=== PATIENT | female | born 1940 | race Caucasian/White ===

== ENCOUNTER → 2024-01-11 15:11 | Outpatient (CLI) | payer OTHER, MEDICAID, SELFPAY ==
--- NOTE | 2024-01-11 15:24 | DI.RAD.S_ITS ---
PROCEDURE: XR CHEST 2V INDICATIONS: SOB TECHNIQUE: 2 views of the chest were acquired. COMPARISON: None. FINDINGS: Surgical changes and devices: None. Lungs and pleura: Low lung volumes accentuate pulmonary is DISH in Min obscure cardiac size. There is blunting the left costophrenic angle. Moderate vascular congestion present. Platelike atelectasis noted on the left. Mediastinum: Mediastinal contours are normal. Heart size is normal. Bones and chest wall: No suspicious bony abnormalities. Soft tissues appear unremarkable. IMPRESSION: Moderate vascular congestion and small left pleural effusion with atelectasis and or infiltrate Approved by: Saul Valvered M.D. on 01/14/2024 at 13:03
== END ==
PROVIDERS: Visit Provider Registered Nurse
DX: J90 Pleural effusion, not elsewhere classified (principal); R06.02 Shortness of breath; R09.02 Hypoxemia; R09.89 Other specified symptoms and signs involving the circulatory and respiratory systems
CPT/HCPCS: 71046

== ENCOUNTER → 2024-03-26 06:19 | Outpatient (ROUT) | payer OTHER, MEDICAID, SELFPAY ==
[2024-03-26 07:44] LABS: BUN Creatinine Ratio 27.1 (6-22); Blood Urea Nitrogen 36 mg/dL (7-17); Calcium 9.7 mg/dL (8.4-10.2); Carbon Dioxide 29 mmol/L (22-32); Chloride 99 mmol/L (98-107); Estimated Glomerular Filt Rate 40 mL/min (>60); Glucose 108 mg/dL (80-110); HEMOLYSIS < 15 (0-50); Magnesium 1.7 mg/dL (1.6-2.3); Potassium 3.9 mmol/L (3.4-5.1); Sodium 134 mmol/L (137-145)
== END ==
PROVIDERS: PCP Internal Medicine; Visit Provider Registered Nurse
DX: E11.649 Type 2 diabetes mellitus with hypoglycemia without coma (principal)
CPT/HCPCS: 36415; 80048; 83735

== ENCOUNTER → 2024-05-07 06:19 | Outpatient (ROUT) | payer OTHER, MEDICAID, SELFPAY ==
[2024-05-07 08:04] LABS: Hematocrit 32.7 % (36-46); Hemoglobin 10.8 g/dL (12.0-16.0); Mean Corpuscular HGB Conc 33.1 % (30-36); Mean Corpuscular Hemoglobin 28.9 PG (26-34); Mean Corpuscular Volume 87.4 fL (80-100); Platelet Count 169 X10^3/uL (150-400); Red Blood Cell Count 3.74 X10^6/uL (4.0-5.2); Red Cell Distribution Width 16.7 % (11.6-14.8); White Blood Cell Count 5.3 X10^3/uL (4.5-11.0)
[2024-05-07 08:18] LABS: BUN Creatinine Ratio 30.6 (6-22); Blood Urea Nitrogen 38 mg/dL (7-17); Calcium 9.3 mg/dL (8.4-10.2); Carbon Dioxide 29 mmol/L (22-32); Chloride 100 mmol/L (98-107); Estimated Glomerular Filt Rate 43 mL/min (>60); Glucose 152 mg/dL (80-110); HEMOLYSIS < 15 (0-50); Hemoglobin A1C% w Est Avg Glu 7.5 % (4.0-6.0); Magnesium 1.7 mg/dL (1.6-2.3); Potassium 3.7 mmol/L (3.4-5.1); Sodium 134 mmol/L (137-145)
[2024-05-07 08:48] LABS: Thyroid Stimulating Hormone 1.17 uIU/mL (0.47-4.68)
== END ==
PROVIDERS: PCP Internal Medicine; Visit Provider Registered Nurse
DX: E11.649 Type 2 diabetes mellitus with hypoglycemia without coma (principal); I11.0 Hypertensive heart disease with heart failure; E03.9 Hypothyroidism, unspecified; E83.42 Hypomagnesemia
CPT/HCPCS: 36415; 80048; 83036; 83735; 84443; 85027

== ENCOUNTER 2024-07-28 11:25 | Emergency (ER) | payer OTHER, MEDICAID, SELFPAY ==
[2024-07-28] VITALS (7 sets, daily range): BP systolic 117–135; BP diastolic 57–67; PULSE 69–77; RESP 16–20; TEMP 36.3–37; O2SAT 90–98; BMI 22.8
--- NOTE | 2024-07-28 11:33 | EKG_ITS ---
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
--- NOTE | 2024-07-28 11:48 | DI.RAD.S_ITS ---
PROCEDURE: XR CHEST 1V INDICATIONS: r/o CHF TECHNIQUE: One view of the chest was acquired. COMPARISON: [facility], CR, XR CHEST 2V, 01/11/2024, 16:00. FINDINGS: Surgical changes and devices: None. Lungs and pleura: Ill-defined airspace opacities in left infrahilar region is seen. Mild pulmonary vascular congestion is also seen. No pleural effusions or pneumothorax. Mediastinum: Mediastinal contours appear normal. Heart size is enlarged. Bones and chest wall: No suspicious bony lesions. Overlying soft tissues appear unremarkable. IMPRESSION: Cardiomegaly and mild congestion. Cannot rule out left lower lobe infiltrate versus atelectasis. No significant pleural effusion. No pneumothorax. Dictated by: Mike Raya M.D. on 07/28/2024 at 12:36 Approved by: Mike Raya M.D. on 07/28/2024 at 12:37
[2024-07-28 11:55] LABS: Add Manual Diff / Slide Review NO; Basophils Absolute Auto 100 /uL (0-100); Basophils Percent Auto 1.3 % (0-2); Eosinophils Absolute Auto 200 /uL (0-450); Eosinophils Percent Auto 2.7 % (2-4); Hematocrit 40.9 % (36-46); Hemoglobin 13.1 g/dL (12.0-16.0); Lymphocytes Absolute Auto 700 /uL (1100-4500); Lymphocytes Percent Auto 9.7 % (25-40); Mean Corpuscular Hemoglobin 26.9 PG (26-34); Mean Corpuscular Volume 84.2 fL (80-100); Monocytes Absolute Auto 700 /uL (0-900); Monocytes Percent Auto 9.6 % (3-14); Neutrophils Absolute Auto 5900 /uL (1500-7000); Neutrophils Percent Auto 76.7 % (50-75); Platelet Count 194 X10^3/uL (150-400); Red Blood Cell Count 4.86 X10^6/uL (4.0-5.2); Red Cell Distribution Width 16.3 % (11.6-14.8); White Blood Cell Count 7.7 X10^3/uL (4.5-11.0)
[2024-07-28 12:07] LABS: Alanine Aminotransferase 28 IU/L (<35); Albumin 4.3 g/dL (3.5-5.0); Albumin Globulin Ratio 1.4 (1.0-2.8); Alkaline Phosphatase 59 U/L (38-126); Aspartate Aminotransferase 59 IU/L (14-36); BUN Creatinine Ratio 20.8 (6-22); Bilirubin Total 1.5 mg/dL (0.2-1.3); Blood Urea Nitrogen 33 mg/dL (7-17); Calcium 9.1 mg/dL (8.4-10.2); Carbon Dioxide 19 mmol/L (22-32); Chloride 103 mmol/L (98-107); Estimated Glomerular Filt Rate 32 mL/min (>60); Glucose 169 mg/dL (80-110); Lipase 47 U/L (23-300); Sodium 136 mmol/L (137-145); Total Protein 7.3 g/dL (6.3-8.2)
[2024-07-28 12:08] LABS: HEMOLYSIS 140 (0-50)
[2024-07-28 12:17] LABS: NT-proBNP (BNP-Adult 18+) 3250 pg/mL (<450)
--- NOTE | 2024-07-28 15:27 | ED.EXTPRO ---
HPI - Extremity Problem General Chief complaint: Extremity Problem,Nontraumatic Stated complaint: LE swelling Time Seen by Provider: 07/28/24 15:23 Source: patient Mode of arrival: EMS Limitations: no limitations History of Present Illness HPI Narrative: 83-year-old female history of prior strokes, hypertension, dyslipidemia, congestive heart failure, atrial fibrillation, pulmonary emboli on apixaban daily, insulin-dependent diabetes, hypothyroidism who presents with complaint of swelling in her legs. Patient did not notice her issue she states the aid that was assisting her did. She states she had swelling in her leg after having thrombectomy and then it improved. She states that was in August of 2023 she has been anticoagulated since. Patient states she has not had regular swelling of her lower extremity since. Denies any fevers or chills. No chest pain or pressure, has had some shortness of breath for the past month, no nausea no vomiting, occasional diarrhea, no urinary issues. No pain or discomfort in her lower extremities. She ambulates with assistance per patient. Patient's home medications include apixaban, medications for hypertension, dyslipidemia, diabetes including oral medication and insulin, chlorthalidone. Patient states no known drug allergies. No tobacco, alcohol or recreational drugs. Her Primary care physician is through [facility] where she lives. Related Data Previous Rx's Medication Instructions Recorded furosemide 40 mg tablet (Lasix) 40 mg PO DAILY #3 tabs 07/28/24 Allergies Allergy/AdvReac Type Severity Reaction Status Date / Time No Known Drug Allergies Allergy Verified 07/28/24 11:26 Review of Systems Review of Systems ROS Unobtainable: All systems reviewed & are unremarkable except as noted in HPI and below Patient History Social History Smoking Status: Former smoker Smoking Status: Former smoker Exam Narrative Exam Narrative: GENERAL: Alert and oriented x three, female in mild distress HEENT: Head normocephalic, atraumatic, EOMI, pupils reactive, face symmetric, moist mucous membranes NECK: Supple, full range of motion CARDIOVASCULAR: Regular rate and rhythm without murmurs, rubs or gallops. RESPIRATORY: Breath sounds equal bilaterally, no wheezes rales or rhonchi. No tachypnea or accessory muscle use ABDOMEN: Soft, nontender. Normoactive bowel sounds all 4 quadrants. No guarding or rebound, rigidity, no mass : No CVA tenderness EXTREMITIES: Normal range of motion, no clubbing, 2+ pitting edema bilateral lower extremities. Nontender, no warmth or erythema appreciated, patient has not incision on the inner right lower extremity and thigh which is clean dry and intact without any signs of infection. Neurovascularly intact NEUROLOGICAL: Cranial nerves II through XII grossly intact. Moving all extremities SKIN: Warm, dry, no petechiae, no rashes or lesions. Initial Vital Signs Initial Vital Signs: Vital Signs Temperature 97.3 F L 07/28/24 11:26 Pulse Rate 77 07/28/24 11:26 Respiratory Rate 17 07/28/24 11:26 Blood Pressure 122/67 07/28/24 11:26 Pulse Oximetry 95 07/28/24 11:26 Oxygen Delivery Method Room Air 07/28/24 11:26 Course Orders Ordered: ED Orders 07/28/24 11:33 EKG-12 Lead Stat 07/28/24 11:45 Complete Blood Count AUTO DIFF Stat Comprehensive Metabolic Panel Stat Lipase Stat NT-proBNP (BNP-Adult 18+) Stat 07/28/24 11:48 Chest [XR chest 1V] Stat 07/28/24 16:28 Troponin & CK Cardiac Panel Stat Discontinued Medications Furosemide (Furosemide 40 Mg/4 Ml Vial) 40 mg IV NOW ONE Stop: 07/28/24 16:21 Last Admin: 07/28/24 17:24 Dose: 40 mg Documented By: TYLOR Vital Signs Vital signs: Vital Signs - 8 hr 07/28/24 11:26 07/28/24 12:42 07/28/24 14:07 Temperature 97.3 F L Pulse Rate 77 70 Pulse Rate [Dorsalis Pedis] 77 Respiratory Rate 17 16 Blood Pressure 122/67 117/57 L Pulse Oximetry 95 90 L Oxygen Delivery Method Room Air 07/28/24 14:09 07/28/24 14:11 07/28/24 14:11 Temperature Pulse Rate 69 69 Pulse Rate [Dorsalis Pedis] Respiratory Rate Blood Pressure 135/63 Pulse Oximetry 92 92 Oxygen Delivery Method 07/28/24 14:30 07/28/24 14:30 07/28/24 17:44 Temperature 98.6 F Pulse Rate 69 70 Pulse Rate [Dorsalis Pedis] Respiratory Rate 20 Blood Pressure 126/64 128/66 Pulse Oximetry 92 98 Oxygen Delivery Method Room Air MDM - Extremity (Nontraumatic) Lab Data 07/28/24 11:45 07/28/24 11:45 Labs: Lab Results 07/28/24 07/28/24 Range/Units 11:45 16:28 WBC 7.7 (4.5-11.0) X10^3/uL RBC 4.86 (4.0-5.2) X10^6/uL Hgb 13.1 (12.0-16.0) g/dL Hct 40.9 (36-46) % MCV 84.2 (80-100) fL MCH 26.9 (26-34) PG MCHC 32.0 (30-36) % RDW 16.3 H (11.6-14.8) % Plt Count 194 (150-400) X10^3/uL Neut % (Auto) 76.7 H (50-75) % Lymph % (Auto) 9.7 L (25-40) % [place] % (Auto) 9.6 (3-14) % Eos % (Auto) 2.7 (2-4) % Baso % (Auto) 1.3 (0-2) % Neut # (Auto) 5900 (2191-1562) /uL Lymph # (Auto) 700 L (0899-9546) /uL [place] # (Auto) 700 (0-900) /uL Eos # (Auto) 200 (0-450) /uL Baso # (Auto) 100 (0-100) /uL Sodium 136 L (137-145) mmol/L Potassium 5.0 (3.4-5.1) mmol/L Chloride 103 (98-107) mmol/L Carbon Dioxide 19 L (22-32) mmol/L BUN 33 H (7-17) mg/dL Creatinine 1.59 H (0.52-1.04) mg/dL Estimated GFR 32 L (>60) mL/min BUN/Creatinine Ratio 20.8 (6-22) Glucose 169 H (80-110) mg/dL Calcium 9.1 (8.4-10.2) mg/dL Total Bilirubin 1.5 H (0.2-1.3) mg/dL AST 59 H (14-36) IU/L ALT 28 (<35) IU/L Alkaline Phosphatase 59 (38-126) U/L Total Creatine Kinase 33 (30-135) U/L Troponin I < 0.012 (0.01-0.034) ng/mL NT-Pro-B Natriuret Pep 3250 H (<450) pg/mL Total Protein 7.3 (6.3-8.2) g/dL Albumin 4.3 (3.5-5.0) g/dL Globulin 3.0 (1.7-4.1) g/dL Albumin/Globulin Ratio 1.4 (1.0-2.8) Lipase 47 (23-300) U/L ECG Data Attestation EKG: I personally reviewed and interpreted this ECG as follows: Prior ECG tracings: not available for review Interpretation: Sinus rhythm rate of 69 NV 180 QRS is 76 QTC of 477, no acute ST elevation or depression noted. MDM Narrative Medical decision making narrative: 83-year-old female history of blood clot but has been anticoagulated appropriately since who appears to be in CHF with pitting edema bilaterally, changes on chest x-ray, patient appears to have some chronic kidney disease and BNP is elevated at 3250. Troponin EKG shows sinus rhythm no acute ST changes. No prior for comparison. Labs CBC shows normal white count hemoglobin and platelets. Chemistries show creatinine of 1.59 this is consistent from priors in March and May which were 1.3 and 1.2 for her, CO2 is 19, sodium is 136 potassium and chloride are normal glucose is 169. Bilirubin is 1.5, AST 59, BNP is 3250. Troponin CXR cardiomegaly with mild congestion can not rule out left lower lobe infiltrate versus atelectasis no significant pleural effusion, no pneumothorax. Discharge Plan Departure Patient Disposition: Home Clinical Impression: Congestive heart failure (CHF) Instructions: DI for Heart Failure Activity Restrictions/Additional Instructions: Please follow up with your physician for recheck, your workup today shows changes consistent with congestive heart failure. Please take a diuretic provided for the next 3 days and then return to your usual dose. 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 Your next dose is due tomorrow. Prescription sent to Please return for increasing swelling, new chest pain or shortness of breath, lightheadedness or passing out, fevers, you redness, warmth or other skin changes or other new or concerning changes Prescriptions: New furosemide [Lasix] 40 mg tablet 40 mg PO DAILY Qty: 3 0RF Referrals: Jose Stuart MD [Primary Care Provider] - Stand Alone Forms: Patient Portal/API/Survey
--- NOTE | 2024-07-28 15:38 | PC.NURSE ---
3+ pitting edema bilaterally in feet& angles. Skin is red and shiny. Pt denies any pain, SOB & CP. Transferred from wheelchair to ED bed with standby assist. Pt a&Ox4.
[2024-07-28 17:03] LABS: Troponin I < 0.012 ng/mL (0.01-0.034)
[2024-07-28] MEDS: FUROSEMIDE 40 MG/4 ML VIAL IV (17:24)
[2024-07-28 17:50] LABS: Creatine Kinase 33 U/L (30-135)
== END 2024-07-28 17:46 | disposition home or self-care (01) ==
PROVIDERS: Emergency Provider Emergency Medicine; PCP Internal Medicine
DX: I50.9 Heart failure, unspecified (principal); Z79.01 Long term (current) use of anticoagulants
CPT/HCPCS: 36415; 71045; 80053; 82550; 83690; 83880; 84484; 85025; 93005; 96374; 99284; J1940

== ENCOUNTER → 2024-09-17 06:24 | Outpatient (ROUT) | payer OTHER, MEDICAID, SELFPAY ==
[2024-09-17 08:19] LABS: Hematocrit 34.9 % (36-46); Hemoglobin 11.6 g/dL (12.0-16.0)
[2024-09-17 08:30] LABS: Hemoglobin A1C% w Est Avg Glu 9.5 % (4.0-6.0)
[2024-09-17 08:38] LABS: BUN Creatinine Ratio 35.8 (6-22); Blood Urea Nitrogen 48 mg/dL (7-17); Calcium 9.4 mg/dL (8.4-10.2); Carbon Dioxide 28 mmol/L (22-32); Chloride 95 mmol/L (98-107); Estimated Glomerular Filt Rate 39 mL/min (>60); Glucose 276 mg/dL (80-110); HEMOLYSIS < 15 (0-50); Magnesium 1.6 mg/dL (1.6-2.3); Potassium 3.9 mmol/L (3.4-5.1); Sodium 134 mmol/L (137-145)
[2024-09-17 09:06] LABS: Thyroid Stimulating Hormone 1.08 uIU/mL (0.47-4.68)
[2024-09-17 09:25] LABS: Vitamin B12 590 pg/mL (239-931)
== END ==
PROVIDERS: PCP Internal Medicine; Visit Provider Registered Nurse
DX: E11.649 Type 2 diabetes mellitus with hypoglycemia without coma (principal); I50.9 Heart failure, unspecified; D64.9 Anemia, unspecified; E03.9 Hypothyroidism, unspecified
CPT/HCPCS: 36415; 80048; 82607; 83036; 83735; 84443; 85014; 85018

== ENCOUNTER 2024-12-04 08:01 | Inpatient (IN) | payer OTHER, MEDICAID, SELFPAY ==
[2024-12-04] VITALS (28 sets, daily range): BP systolic 113–182; BP diastolic 48–80; PULSE 76–122; RESP 9–19; TEMP 36.1–36.7; O2SAT 85–100; BMI 24.3; BMI 24.7
--- NOTE | 2024-12-04 08:12 | EKG_ITS ---
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
--- NOTE | 2024-12-04 08:12 | DI.RAD.S_ITS ---
PROCEDURE: XR CHEST 1V INDICATIONS: Chest Pain TECHNIQUE: One view of the chest was acquired. COMPARISON: [facility], CR, XR CHEST 1V, 07/28/2024, 11:53. FINDINGS: Surgical changes and devices: None. Lungs and pleura: Subtle interstitial pulmonary edema. No pleural effusions or pneumothorax. Mediastinum: Mediastinal contours appear normal. Heart size is mildly enlarged. Bones and chest wall: No suspicious bony lesions. Overlying soft tissues appear unremarkable. IMPRESSION: Mild pulmonary edema. Dictated by: Velasquez Weeks M.D. on 12/04/2024 at 8:31 Approved by: Velasquez Weeks M.D. on 12/04/2024 at 8:31
[2024-12-04 08:46] LABS: Add Manual Diff / Slide Review NO; Hematocrit 36.8 % (36-46); Hemoglobin 12.3 g/dL (12.0-16.0); Lymphocytes Absolute Auto 500 /uL (1100-4500); Mean Corpuscular HGB Conc 33.6 % (30-36); Mean Corpuscular Hemoglobin 30.0 PG (26-34); Mean Corpuscular Volume 89.4 fL (80-100); Platelet Count 185 X10^3/uL (150-400)
[2024-12-04 08:53] LABS: INR 1.3 (0.9-1.3); Prothrombin Time 14.6 SECONDS (9.4-12.5)
--- NOTE | 2024-12-04 08:54 | DI.CT.S_ITS ---
PROCEDURE: CT TRAUMA CHEST ABDOMEN PELVIS INDICATIONS: fall TECHNIQUE: After the administration of intravenous contrast, 5 mm thick sections acquired from the lung apices to the symphysis. 2.5 mm thick coronal and sagittal reformats were acquired. Additional 7 mm thick coronal maximum intensity projection (MIP) reformats acquired through the lungs. Optional 10-minute delayed imaging may be performed from the kidneys to the bladder. For radiation dose reduction, the following was used: automated exposure control, adjustment of mA and/or kV according to patient size. COMPARISON: None. FINDINGS: Image quality: Diagnostic. CHEST: Lower Neck: No enlarged lymph nodes. Thyroid: No thyroid nodules which require sonographic evaluation. Axillae: No enlarged lymph nodes. Chest Wall: No subcutaneous gas. Lungs and Pleura: No pulmonary contusions or lacerations. Interstitial pulmonary edema. No alveolar edema. No focal pulmonary infiltrate. No pneumothorax or hemothorax. Mediastinum: No mediastinal hematomas. Heart size is mildly enlarged. No pericardial effusion. Thoracic aorta and pulmonary arteries demonstrate normal size and enhancement. No mediastinal or hilar adenopathy. Esophagus is normal in caliber. No hiatal hernia. ABDOMEN: Liver: No lacerations. Gallbladder: Small gallstones. No gallbladder wall thickening. Biliary ducts: No biliary dilation. Pancreas: Homogenous enhancement. Spleen: Homogenous enhancement without laceration or hematoma. Lobulated surface contours are incidentally noted.. Adrenal Glands: Indeterminate left adrenal nodule measuring 1.9 x 1.4 cm. Kidneys and Ureters: Symmetric enhancement. No hydronephrosis. No solid mass. No complex renal cystic lesion which requires follow up. Chronic anterior cortical volume loss of the right kidney consistent with remote insult. Stomach and Bowel: Normal colonic caliber, without significant wall thickening. Peritoneum: No abnormal intraperitoneal fluid. No free air. Ventral Wall: No hernia. Abdominal Nodes: No retroperitoneal or mesenteric adenopathy by size criteria. Vessels: Aorta and inferior vena cava are normal in size. PELVIS: Pelvic Organs: Unremarkable. Bladder: Normal thickness. Pelvic Nodes: No enlarged lymph nodes. Miscellaneous: No inguinal hernias are seen. Bones: Pelvic ring and hip joints appear intact. No displaced rib fractures. A mild T11 compression fracture appears chronic. There is diffuse osteopenia. IMPRESSION: No evidence of traumatic injury to the chest, abdomen or pelvis. Congestive heart failure Cholelithiasis. Indeterminate 1.9 cm left adrenal nodule. Chronic compression fracture. Dictated by: Velasquez Weeks M.D. on 12/04/2024 at 10:13 Approved by: Velasquez Weeks M.D. on 12/04/2024 at 10:26
[2024-12-04 08:56] LABS: PTT Partial Thromboplastin Tim 28 SECONDS (25.1-36.5)
--- NOTE | 2024-12-04 08:57 | ED_ITS ---
HPI - Dizziness General Chief Complaint: Dizziness Stated Complaint: N/V Had a fall today Time Seen by Provider: 12/04/24 08:31 Source: patient Mode of arrival: Wheelchair History of Present Illness HPI Narrative: Patient brought here from [facility], across the [address]. Patient got up this morning sat at the edge of bed she usually does. When she got up to use her walker she got dizzy and fell down, landed on her pelvis/hip. And then on her back. Did not hit her head. No headache or neck pain. Patient has history atrial fibrillation on Eliquis. Patient states she did have nausea and vomiting after falling. Again no chest pain or palpitations shortness of breath. Denies any recent illness no fever chills cough cold congestion no black or bloody stools. Patient in no distress at this time. Has not taken her morning medications. She states she is not on metoprolol because her blood pressure has been running low. Patient does have a POLST form that is stated as DNR DNI with selective treatments. Related Data Home Medications ?Medication ?Instructions ?Recorded ?Confirmed acetaminophen 325 mg capsule 650 mg PO .q6hprn pain 12/04/24 apixaban 5 mg tablet (Eliquis) 2.5 mg PO BID 12/04/24 12/04/24 ascorbic acid (vitamin C) 250 mg 250 mg PO .COMPLEX 12/04/24 tablet atorvastatin 40 mg tablet 40 mg PO DAILY 12/04/2408/26 chlorthalidone 25 mg tablet 12.5 mg PO .COMPLEX 12/04/24 citalopram 20 mg tablet 20 mg PO DAILY 12/04/2408/26 diltiazem HCl 120 mg 120 mg PO DAILY 12/04/2408/26 capsule,extended release 24 hr empagliflozin 25 mg tablet 25 mg PO DAILY 12/04/2408/26 (Jardiance) ferrous sulfate 325 mg (65 mg 325 mg PO DAILY 12/04/24 12/04/24 iron) tablet (FeroSul) gabapentin 100 mg capsule 100 mg PO DAILY 12/04/2408/26 insulin glargine-yfgn 100 unit/mL 18 unit SUBCUT BID 0 12/04/24 12/04/24 (3 mL) subcutaneous pen levothyroxine 75 mcg tablet 75 mcg PO DAILY 12/04/24 0 12/04/24 magnesium oxide 400 mg (241.3 mg 400 mg PO BID 5 12/04/24 magnesium) tablet fwjgceibahfi-fpwflwdx-bnzr 1 tab PO DAILY 12/04/2408/26 fumarate 7.5 mg-folic acid 400 mcg tablet pantoprazole 40 mg tablet,delayed 40 mg PO DAILY 12/0412/04/24 release Previous Rx's ?Medication ?Instructions ?Recorded furosemide 20 mg tablet 20 mg PO DAILY #30 tabs 11/26 Allergies Allergy/AdvReac Type Severity Reaction Status Date / Time No Known Drug Allergies Allergy Verified 12/04/24 08:41 Review of Systems Review of Systems Narrative: GENERAL: Negative chills, fatigue, malaise, fever, sweats. HEENT: Negative sinus pain, ear pain, sore throat RESPIRATORY: Negative dyspnea, cough CARDIOVASCULAR: Negative chest pain, palpitations GASTROINTESTINAL: Positive vomiting, nausea, negative abdominal pain : Negative dysuria, frequency, hematuria MUSCULOSKELETAL: Negative muscle or bony pain SKIN: Negative rash, skin lesions NEUROLOGIC: Negative weakness, numbness, positive dizzy ROS Unobtainable: All systems reviewed & are unremarkable except as noted in HPI and below Patient History Social History household members: none Smoking Status: Former smoker alcohol intake: current Smoking Status: Never smoker Exam Narrative Exam Narrative: GENERAL: in no distress, not toxic not dyspneic HEAD: Normocephalic. EYES: Pupils equal round ENT: Mucous membranes moist. NECK: Trachea midline. CARDIOVASCULAR: Regular rate and rhythm RESPIRATORY: Clear to auscultation. Breath sounds equal bilaterally. No wheezes, rales, or rhonchi. GASTROINTESTINAL: Abdomen soft, non-tender no peritoneal signs EXTREMITIES: No gross deformities. BACK: No flank tenderness. NEURO: AOx4. Clear speech, fast exam is negative. Strong equal photo technician. Negative pronator drift. Elevate each leg without drift. SKIN: Warm and dry PSYCH: Not anxious, is cooperative Initial Vital Signs Initial Vital Signs: Vital Signs Pulse Rate 122 H 12/04/24 08:16 Pulse Oximetry 93 12/04/24 08:16 Course Orders Ordered: Discontinued Medications Acetaminophen (Acetaminophen 325 Mg Tablet) 650 mg PO Q6H PRN PRN Reason: Fever/Mild Pain (1-3) Last Admin: 12/06/24 21:00 Dose: 650 mg Documented By: Admin: 12/05/24 16:26 Dose: 650 mg Documented By: KINGSLEY Apixaban (Apixaban 5 Mg Tablet) 2.5 mg PO BID [facility] Last Admin: 12/07/24 08:00 Dose: 2.5 mg Documented By: Admin: 12/06/24 20:59 Dose: 2.5 mg Documented By: Admin: 12/06/24 08:30 Dose: 2.5 mg Documented By: Admin: 12/05/24 20:18 Dose: 2.5 mg Documented By: Admin: 12/05/24 08:19 Dose: 2.5 mg Documented By: Admin: 12/04/24 21:31 Dose: 2.5 mg Documented By: CHLOE Aspirin (Aspirin 81 Mg Chew Tab) 324 mg PO NOW ONE Stop: 12/04/24 08:13 Last Admin: 12/04/24 09:41 Dose: Not Given Documented By: ROXANA Atorvastatin Calcium (Atorvastatin 20 Mg Tablet) 40 mg PO BEDTIME [facility] Last Admin: 12/06/24 21:02 Dose: 40 mg Documented By: Admin: 12/05/24 20:16 Dose: 40 mg Documented By: MARIELA Citalopram Hydrobromide (Citalopram 10 Mg Tablet) 20 mg PO DAILY [facility] Last Admin: 12/07/24 08:00 Dose: 20 mg Documented By: Admin: 12/06/24 08:30 Dose: 20 mg Documented By: Admin: 12/05/24 08:19 Dose: 20 mg Documented By: KINGSLEY Diltiazem HCl (Diltiazem Cd 120 Mg Cap) 120 mg PO NOW ONE Stop: 12/04/24 08:58 Last Admin: 12/04/24 09:41 Dose: 120 mg Documented By: ROXANA Furosemide (Furosemide 40 Mg/4 Ml Vial) 20 mg IV NOW ONE Stop: 12/04/24 13:15 Last Admin: 12/04/24 13:32 Dose: 20 mg Documented By: ROXANA Furosemide (Furosemide 20 Mg/2 Ml Vial) 20 mg IV BID [facility] Furosemide (Furosemide 20 Mg/2 Ml Vial) 20 mg IV DAILY [facility] Stop: 12/06/24 09:19 Last Admin: 12/06/24 09:20 Dose: Not Given Documented By: Admin: 12/05/24 08:23 Dose: 20 mg Documented By: KINGSLEY Furosemide (Furosemide 20 Mg Tablet) 20 mg PO DAILY [facility] Last Admin: 12/07/24 08:00 Dose: 20 mg Documented By: Admin: 12/06/24 09:34 Dose: 20 mg Documented By: MAMIE Gabapentin (Gabapentin 100 Mg Capsule) 100 mg PO DAILY [facility] Last Admin: 12/07/24 08:00 Dose: 100 mg Documented By: Admin: 12/06/24 08:30 Dose: 100 mg Documented By: Admin: 12/05/24 08:20 Dose: 100 mg Documented By: KINGSLEY Heparin Sodium (Porcine) (Heparin 5,000 Unit/Ml Vial) 5,000 unit SUBCUT BID [facility] Sodium Chloride (Normal Saline 0.9%) 500 mls @ 1,000 mls/hr IV BOLUS ONE Stop: 12/04/24 09:26 Last Infusion: 12/04/24 11:04 Dose: Infused Documented By: Admin: 12/04/24 09:41 Dose: 1,000 mls/hr Documented By: ROXANA Dextrose (D10w) 100 mls @ 999 mls/hr IV PRN PRN PRN Reason: Hypoglycemia Magnesium Sulfate (Magnesium Sulfate) 2 gm in 50 mls @ 25 mls/hr IV NOW ONE Stop: 12/07/24 09:54 Last Infusion: 12/07/24 13:31 Dose: Infused Documented By: ALON Co-signed By: PRERNA Admin: 12/07/24 10:41 Dose: 25 mls/hr Documented By: ALON Co-signed By: PRERNA Insulin Glargine (Insulin Glargine 100 Unit/Ml 3ml Pen) 18 unit SUBCUT BID [facility] Last Admin: 12/07/24 08:00 Dose: 18 unit Documented By: ALON Co-signed By: NORM Admin: 12/06/24 21:04 Dose: 18 unit Documented By: LEVY Co-signed By: NORM(2) Admin: 12/06/24 14:47 Dose: 18 unit Documented By: MAMIE Co-signed By: HAN Insulin Glargine (Insulin Glargine 100 Unit/Ml 3ml Pen) 21 unit SUBCUT BID [facility] Insulin Human Lispro (Insulin Lispro 100 Unit/Ml 3ml Vial) 0 unit SUBCUT ACHS SHERRI; Protocol Last Admin: 12/07/24 12:10 Dose: 5 unit Documented By: ALON Co-signed By: PRERNA Admin: 12/07/24 07:58 Dose: 2 unit Documented By: ALON Co-signed By: NORM Admin: 12/06/24 21:05 Dose: 3 unit Documented By: VH Co-signed By: NORM(2) Admin: 12/06/24 16:57 Dose: 5 unit Documented By: CLP Co-signed By: EV Admin: 12/06/24 12:03 Dose: 5 unit Documented By: CLP Co-signed By: BT Admin: 12/06/24 08:21 Dose: 2 unit Documented By: CLP Co-signed By: BT Admin: 12/05/24 20:17 Dose: 2 unit Documented By: AM Co-signed By: SR Admin: 12/05/24 17:30 Dose: 2 unit Documented By: KINGSLEY Co-signed By: CROW Admin: 12/05/24 11:43 Dose: 1 unit Documented By: KINGSLEY Co-signed By: CLL Admin: 12/05/24 08:18 Dose: 1 unit Documented By: KINGSLEY Co-signed By: CROW Admin: 12/04/24 21:31 Dose: Not Given Documented By: Admin: 12/04/24 17:31 Dose: Not Given Documented By: SB Levothyroxine Sodium (Levothyroxine 75 Mcg Tablet) 75 mcg PO DAILY@0600 [facility] Last Admin: 12/07/24 06:33 Dose: 75 mcg Documented By: Admin: 12/06/24 06:23 Dose: 75 mcg Documented By: Admin: 12/05/24 05:34 Dose: 75 mcg Documented By: CHLOE Magnesium Chloride (Magnesium Chloride 64 Mg Tablet) 128 mg PO NOW ONE Stop: 12/06/24 06:55 Last Admin: 12/06/24 08:30 Dose: 128 mg Documented By: MAMIE Naloxone HCl (Naloxone 0.4 Mg/Ml Vial) 0.2 mg IV Q2MIN PRN PRN Reason: Opiate Reversal Non-Formulary Medication (Empagliflozin [Jardiance]) 25 mg PO DAILY [facility] Pantoprazole Sodium (Pantoprazole Dr 40 Mg Tablet) 40 mg PO DAILY [facility] Last Admin: 12/05/24 08:20 Dose: 40 mg Documented By: KINGSLEY Pantoprazole Sodium (Pantoprazole Dr 40 Mg Tablet) 40 mg PO 0600 [facility] Last Admin: 12/07/24 06:33 Dose: 40 mg Documented By: Admin: 12/06/24 06:24 Dose: 40 mg Documented By: LEVY Sodium Chloride (Sodium Chloride 0.9% Flush) 10 ml IV PRN PRN PRN Reason: Flush Sodium Chloride (Sodium Chloride 0.9% Flush) 10 ml IV BID [facility] Last Admin: 12/07/24 10:41 Dose: 10 ml Documented By: Admin: 12/06/24 21:12 Dose: 10 ml Documented By: Admin: 12/06/24 09:21 Dose: Not Given Documented By: MAMIE Vital Signs Vital signs: Vital Signs - 8 hr 12/04/24 08:16 12/04/24 08:18 12/04/24 08:18 Temperature Pulse Rate 122 H 110 H Respiratory Rate Blood Pressure 182/80 H Pulse Oximetry 93 92 Oxygen Delivery Method Oxygen Flow Rate 12/04/24 08:30 12/04/24 08:30 12/04/24 08:40 Temperature 98.1 F Pulse Rate 87 93 H Respiratory Rate 19 14 Blood Pressure 172/70 H 182/80 H Pulse Oximetry 94 94 Oxygen Delivery Method Room Air Oxygen Flow Rate 12/04/24 09:00 12/04/24 09:01 12/04/24 09:36 Temperature Pulse Rate 87 93 H Respiratory Rate 13 Blood Pressure 150/67 H Pulse Oximetry 85 L 92 Oxygen Delivery Method Oxygen Flow Rate 12/04/24 09:37 12/04/24 09:37 12/04/24 10:00 Temperature Pulse Rate 94 H 92 H Respiratory Rate 11 L 13 Blood Pressure 163/69 H Pulse Oximetry 93 89 L Oxygen Delivery Method Oxygen Flow Rate 12/04/24 10:01 12/04/24 10:01 12/04/24 10:30 Temperature Pulse Rate 93 H 86 Respiratory Rate 12 12 Blood Pressure 158/71 H Pulse Oximetry 88 L 92 Oxygen Delivery Method Nasal Cannula Oxygen Flow Rate 2 12/04/24 10:30 12/04/24 11:00 12/04/24 11:00 Temperature Pulse Rate 84 Respiratory Rate 9 L Blood Pressure 147/64 H 136/57 L Pulse Oximetry 92 Oxygen Delivery Method Oxygen Flow Rate 12/04/24 11:30 12/04/24 11:31 12/04/24 11:31 Temperature Pulse Rate 82 82 Respiratory Rate 12 12 Blood Pressure 144/62 H Pulse Oximetry 96 96 Oxygen Delivery Method Oxygen Flow Rate 12/04/24 12:00 12/04/24 12:00 12/04/24 12:30 Temperature Pulse Rate 92 H 92 H Respiratory Rate 13 15 Blood Pressure 156/69 H Pulse Oximetry 93 90 L Oxygen Delivery Method Oxygen Flow Rate 12/04/24 12:30 12/04/24 13:00 12/04/24 13:01 Temperature Pulse Rate 89 90 Respiratory Rate 14 13 Blood Pressure 156/67 H Pulse Oximetry 94 94 Oxygen Delivery Method Oxygen Flow Rate 12/04/24 13:01 12/04/24 13:30 12/04/24 13:30 Temperature Pulse Rate 91 H Respiratory Rate 13 Blood Pressure 144/64 H 152/73 H Pulse Oximetry 93 Oxygen Delivery Method Oxygen Flow Rate 12/04/24 14:00 12/04/24 14:01 12/04/24 14:01 Temperature Pulse Rate 99 H 96 H Respiratory Rate 19 14 Blood Pressure 130/56 L Pulse Oximetry 96 96 Oxygen Delivery Method Oxygen Flow Rate MDM - Dizziness Lab Data 12/06/24 06:00 12/06/24 06:00 Labs: Lab Results 12/04/24 12/04/24 Range/Units 08:35 12:56 WBC 4.9 (4.5-11.0) X10^3/uL RBC 4.11 (4.0-5.2) X10^6/uL Hgb 12.3 (12.0-16.0) g/dL Hct 36.8 (36-46) % MCV 89.4 (80-100) fL MCH 30.0 (26-34) PG MCHC 33.6 (30-36) % RDW 14.7 (11.6-14.8) % Plt Count 185 (150-400) X10^3/uL Neut % (Auto) 74.3 (50-75) % Lymph % (Auto) 10.9 L (25-40) % Wilcox % (Auto) 9.9 (3-14) % Eos % (Auto) 3.7 (2-4) % Baso % (Auto) 1.2 (0-2) % Neut # (Auto) 3600 (9315-1857) /uL Lymph # (Auto) 500 L (9303-8249) /uL Wilcox # (Auto) 500 (0-900) /uL Eos # (Auto) 200 (0-450) /uL Baso # (Auto) 100 (0-100) /uL PT 14.6 H (9.4-12.5) SECONDS INR 1.3 (0.9-1.3) APTT 28 (25.1-36.5) SECONDS Sodium 138 (137-145) mmol/L Potassium 3.7 (3.4-5.1) mmol/L Chloride 97 L (98-107) mmol/L Carbon Dioxide 31 (22-32) mmol/L BUN 34 H (7-17) mg/dL Creatinine 1.46 H (0.52-1.04) mg/dL Estimated GFR 35 L (>60) mL/min BUN/Creatinine Ratio 23.3 H (6-22) Glucose 164 H (70-99) mg/dL Calcium 9.9 (8.4-10.2) mg/dL Magnesium 1.4 L (1.6-2.3) mg/dL Total Bilirubin 0.7 (0.2-1.3) mg/dL AST 37 H (14-36) IU/L ALT 32 (<35) IU/L Alkaline Phosphatase 59 (38-126) U/L Total Creatine Kinase 41 (30-135) U/L Troponin I < 0.012 (0.01-0.034) ng/mL NT-Pro-B Natriuret Pep 1060 H (<450) pg/mL Total Protein 8.1 (6.3-8.2) g/dL Albumin 4.7 (3.5-5.0) g/dL Globulin 3.4 (1.7-4.1) g/dL Albumin/Globulin Ratio 1.4 (1.0-2.8) Lipase 80 (23-300) U/L Urine Color Yellow Urine Appearance Clear Urine pH 7.5 (4.5-8.0) Ur Specific [place] <=1.005 (1.000-1.035) Urine Protein Negative (Negative) Urine Glucose (UA) Negative (Negative) g/dL Urine Ketones Negative (NEGATIVE) Urine Occult Blood Negative (Negative) Urine Nitrate Negative (Negative) Urine Bilirubin Negative (NEGATIVE) Urine Urobilinogen 1.0 (0.2) E.U./dL Ur Leukocyte Esterase Trace H (NEGATIVE) Urine RBC 0-1/hpf (0-5/HPF) Urine WBC 0-1/hpf (0-5/HPF) Ur Squamous Epith Cells 1-5 /hpf (0-5/HPF) Urine Bacteria None seen (None) Ur Culture Indicated? Cult not indicated Vol Urine Centrifuged 10ml (spun) Imaging Data CT scan - head: Radiologist's Impression: [address] [address] [address] Scan Report Signed Patient: Francine Godinez MR#: [id number] : 1940 Acct:[id number] Age/Sex: 84 / F Date of Service: 12/04/24 Loc: ED Accession Number: [id number] Procedure: CT head/brain wo con Ordering Provider: David Rae MD PROCEDURE: CT HEAD/BRAIN WO CON INDICATIONS: Trauma TECHNIQUE: Noncontrast 4.5 mm thick angled axial sections acquired from the foramen magnum to the vertex, with coronal and sagittal reformats. For radiation dose reduction, the following was used: automated exposure control, adjustment of mA and/or kV according to patient size. COMPARISON: None. FINDINGS: Image quality: Diagnostic. CSF spaces: Basal cisterns are patent. No extra-axial fluid collections. The ventricles are symmetric in size and shape. Brain: No intracranial bleeds or mass effect. There is cerebral volume loss, with resultant ventricular and sulcal prominence. There are severe periventricular and deep white matter chronic small vessel ischemic changes. Old right MCA distribution infarct with predominantly deep white matter changes. There is intracranial internal carotid artery atherosclerosis. Skull and face: Calvarium and visualized facial bones appear intact, without suspicious lesions. Sinuses: Visualized sinuses and mastoids are clear. IMPRESSION: No acute intracranial pathology. Severe small vessel ischemic change. Old right MCA distribution infarct. Dictated by: Velasquez Weeks M.D. on 12/04/2024 at 10:09 Approved by: Velasquez Weeks M.D. on 12/04/2024 at 10:10 CT - cervical spine: Radiologist's Impression: [address] [address] [address] Scan Report Signed Patient: Francine Godinez MR#: [id number] : 1940 Acct:[id number] Age/Sex: 84 / F Date of Service: 12/04/24 Loc: ED Accession Number: [id number] Procedure: CT cervical spine wo con Ordering Provider: David Rae MD PROCEDURE: CT CERVICAL SPINE WO CON INDICATIONS: Trauma TECHNIQUE: Noncontrast 3 mm thick sections acquired from the skull base to the T4 level. Sagittal and coronal reformats were then constructed. For radiation dose reduction, the following was used: automated exposure control, adjustment of mA and/or kV according to patient size. COMPARISON: None. FINDINGS: Image quality: Excellent. Bones: No fractures or dislocations. Severe cervical spondylosis. Findings include multilevel canal stenosis and multilevel bony foraminal narrowing. Visualized superior ribs are intact. Soft tissues: Prevertebral soft tissues are normal in thickness. No paravertebral hematomas. No apical pneumothoraces. Interstitial pulmonary edema with biapical paraseptal thickening. IMPRESSION: No displaced fracture or traumatic subluxation. Severe cervical spondylosis. Pulmonary edema. Dictated by: Velasquez Weeks M.D. on 12/04/2024 at 10:10 Approved by: Velasquez Weeks M.D. on 12/04/2024 at 10:12 CT chest abdomen and pelvis: Radiologist's Impression: [place] [address] CT Scan Report Signed Patient: Francine Godinez MR#: [id number] : 1940 Acct:[id number] Age/Sex: 84 / F Date of Service: 12/04/24 Loc: ED Accession Number: [id number] Procedure: CT Trauma Chest Abdomen Pelvis Ordering Provider: David Rae MD PROCEDURE: CT TRAUMA CHEST ABDOMEN PELVIS INDICATIONS: fall TECHNIQUE: After the administration of intravenous contrast, 5 mm thick sections acquired from the lung apices to the symphysis. 2.5 mm thick coronal and sagittal reformats were acquired. Additional 7 mm thick coronal maximum intensity projection (MIP) reformats acquired through the lungs. Optional 10-minute delayed imaging may be performed from the kidneys to the bladder. For radiation dose reduction, the following was used: automated exposure control, adjustment of mA and/or kV according to patient size. COMPARISON: None. FINDINGS: Image quality: Diagnostic. CHEST: Lower Neck: No enlarged lymph nodes. Thyroid: No thyroid nodules which require sonographic evaluation. Axillae: No enlarged lymph nodes. Chest Wall: No subcutaneous gas. Lungs and Pleura: No pulmonary contusions or lacerations. Interstitial pulmonary edema. No alveolar edema. No focal pulmonary infiltrate. No pneumothorax or hemothorax. Mediastinum: No mediastinal hematomas. Heart size is mildly enlarged. No pericardial effusion. Thoracic aorta and pulmonary arteries demonstrate normal size and enhancement. No mediastinal or hilar adenopathy. Esophagus is normal in caliber. No hiatal hernia. ABDOMEN: Liver: No lacerations. Gallbladder: Small gallstones. No gallbladder wall thickening. Biliary ducts: No biliary dilation. Pancreas: Homogenous enhancement. Spleen: Homogenous enhancement without laceration or hematoma. Lobulated surface contours are incidentally noted.. Adrenal Glands: Indeterminate left adrenal nodule measuring 1.9 x 1.4 cm. Kidneys and Ureters: Symmetric enhancement. No hydronephrosis. No solid mass. No complex renal cystic lesion which requires follow up. Chronic anterior cortical volume loss of the right kidney consistent with remote insult. Stomach and Bowel: Normal colonic caliber, without significant wall thickening. Peritoneum: No abnormal intraperitoneal fluid. No free air. Ventral Wall: No hernia. Abdominal Nodes: No retroperitoneal or mesenteric adenopathy by size criteria. Vessels: Aorta and inferior vena cava are normal in size. PELVIS: Pelvic Organs: Unremarkable. Bladder: Normal thickness. Pelvic Nodes: No enlarged lymph nodes. Miscellaneous: No inguinal hernias are seen. Bones: Pelvic ring and hip joints appear intact. No displaced rib fractures. A mild T11 compression fracture appears chronic. There is diffuse osteopenia. IMPRESSION: No evidence of traumatic injury to the chest, abdomen or pelvis. Congestive heart failure Cholelithiasis. Indeterminate 1.9 cm left adrenal nodule. Chronic compression fracture. Dictated by: Velasquez Weeks M.D. on 12/04/2024 at 10:13 Approved by: Velasquez Weeks M.D. on 12/04/2024 at 10:26 MDM Narrative Medical decision making narrative: Patient brought here from [facility], across the street. Patient got up this morning sat at the edge of bed she usually does. When she got up to use her walker she got dizzy and fell down, landed on her pelvis/hip. And then on her back. Did not hit her head. No headache or neck pain. Patient has history atrial fibrillation on Eliquis. Patient states she did have nausea and vomiting after falling. Again no chest pain or palpitations shortness of breath. Denies any recent illness no fever chills cough cold congestion no black or bloody stools. Patient in no distress at this time. Has not taken her morning medications. She states she is not on metoprolol because her blood pressure has been running low. Patient does have a POLST form that is stated as DNR DNI with selective treatments. After history and exam, CT head CT cervical spine CT chest abdomen pelvis EKG troponin CBC CMP PT INR normal saline, patient's home diltiazem to be given urinalysis MDM Medical records reviewed: No recent visit for this complaint Differential considered: Includes but not limited to arrhythmia anemia stroke vasovagal Lab Test results independently reviewed as above. Pertinent findings: Independently reviewed EKG normal sinus rhythm rate [address] elevation or depression Imaging studies independently reviewed: CT head cervical spine chest abdomen pelvis no acute finding Consultations: 3:20 p.m.. Spoke hospitalist, Dr. Avila, patient requiring supplemental oxygen and eating diuresis for CHF, who will admit patient. Re-evaluations: 11:51 a.m.. Patient is doing well. She has no complaints at this time. Blood pressure has improved with Cardizem p.o. medication that patient takes at home. I did reviewed results with patient. Also I spoke with daughter Meaghan by phone. Awaiting for urinalysis results but ultimately they both desire discharge home. They both say that dizziness and nausea is not new for her. This is likely vasovagal event as this occurred while she was standing up. She has not had any further symptoms since coming here. Return precautions reviewed. They desire discharge home. Discussion: Appropriate for admission. On for their review patient is in CHF exacerbation requiring supplemental oxygen, diuresis has been started. Patient will be admitted. Diagnosis: CHF exacerbation, vasovagal episode Discharge Plan Departure Patient Disposition: Admitted as Observation Clinical Impression: Vaso-vagal reaction CHF exacerbation Qualifiers: Heart failure type: unspecified Qualified Code(s): I50.9 - Heart failure, unspecified Admit Date/Time: 12/04/24 15:28 Admit Provider: George Avila
[2024-12-04 08:59] LABS: Alanine Aminotransferase 32 IU/L (<35); Albumin 4.7 g/dL (3.5-5.0); Albumin Globulin Ratio 1.4 (1.0-2.8); Alkaline Phosphatase 59 U/L (38-126); Blood Urea Nitrogen 34 mg/dL (7-17); Calcium 9.9 mg/dL (8.4-10.2); Carbon Dioxide 31 mmol/L (22-32); Chloride 97 mmol/L (98-107); Creatine Kinase 41 U/L (30-135); Estimated Glomerular Filt Rate 35 mL/min (>60); Globulin 3.4 g/dL (1.7-4.1); Glucose 164 mg/dL (70-99); HEMOLYSIS < 15 (0-50); Lipase 80 U/L (23-300); Magnesium 1.4 mg/dL (1.6-2.3); Potassium 3.7 mmol/L (3.4-5.1); Sodium 138 mmol/L (137-145); Total Protein 8.1 g/dL (6.3-8.2)
[2024-12-04 09:10] LABS: NT-proBNP (BNP-Adult 18+) 1060 pg/mL (<450); Troponin I < 0.012 ng/mL (0.01-0.034)
[2024-12-04] MEDS: SODIUM CHLORIDE 0.9% 500 ML 1000 ML IV (09:41)
[2024-12-04 13:05] LABS: Appearance Urine UA CLEAR; Bilirubin Urine UA NEGATIVE (NEGATIVE); Color Urine UA YELLOW; Glucose Urine UA NEGATIVE (Negative); Ketones Urine UA NEGATIVE (NEGATIVE); Leukocyte Esterase Urine UA TRACE (NEGATIVE); Nitrite Urine UA NEGATIVE (Negative); Occult Blood Urine UA NEGATIVE (Negative); Protein Urine UA NEGATIVE (Negative); Specific Gravity Urine UA <=1.005 (1.000-1.035); Urobilinogen Urine UA 1.0 E.U./dL (0.2)
[2024-12-04 13:11] LABS: pH Urine UA 7.5 (4.5-8.0)
[2024-12-04 13:18] LABS: Culture Indicated Urine Cult Not Indicated
--- NOTE | 2024-12-04 13:18 | W.PC.EDHO ---
Report given to Ban BHAGAT
[2024-12-04] MEDS: FUROSEMIDE 40 MG/4 ML VIAL 20 MG IV (13:32)
--- NOTE | 2024-12-04 16:51 | DI.ECHO.S_ITS ---
[place] [facility]+ [facility] : : [address] : : [address] [address] : : [address] : : Phone: [phone] Echocardiogram Report + + :Name: MARTHA LOWE Study Date: 12/05/2024 Height: 68 in : :Hospital ReadingLocation: Weight: 160 lb : : Gender: Female BSA: 1.9 m2 : :: 1940 Age: 84 yrs BP: 115/46 mmHg: :Reason For Study: CONGESTIVE HEART FAILURE : :Ordering Physician: LUISANA, : :SANDHYA Stinson Performed By: Margarita Wheeler : :Referring: SANDHYA LIEBERMAN : + + Interpretation Summary 1) Normal left ventricular size and thickness with mildly to moderately reduced systolic function (EF 40-45%). 2) Mildly enlarged right ventricle with low normal function. 3) There is moderate to severe calcifici mitral stenosis (mean inflow gradient 13.8mmHg, HR of 77bpm, MVA 1.6cm2 via PHT). 4) There is mild to moderate mitral regurgitation. 5) There is mild calcific aortic stenosis (valve area 1.5cm2, mean gradient 7mmHg). There is mild aortic regurgitation. 6) There is moderate tricuspid regurgitation. 7) The right ventricular systolic pressure is estimated to be at least 76 mmHg based on an estimated right atrial pressure of 3 mm Hg 8) No prior Echo available for comparison. Procedure: A two-dimensional transthoracic echocardiogram with color flow and Doppler was performed. The study quality was technically adequate. There is no prior echocardiogram noted for this patient. The patient was in sinus rhythm with heart rates between 81-88 bpm during the exam. Left Ventricle: The left ventricle is normal in size and wall thickness. The ejection fraction is estimated to be 40-45%. Diastolic function could not be accurately assessed due to confounding valvular disease. Right Ventricle: The right ventricle is mildly dilated. Right ventricular systolic function is at the lower limits of normal. Atria: The left atrium is moderately dilated. Right atrial size is normal. There is no Doppler evidence for an interatrial shunt. Mitral Valve: The mitral valve leaflets are severely calcified. The mitral valve mean gradient is 13.8 mmHg. There is moderate to severe mitral stenosis. There is mild to moderate mitral regurgitation. Aortic Valve: The aortic valve is mildly calcified. The aortic valve is trileaflet. The peak aortic velocity is 1.8 m/sec. The aortic valve mean gradient is 7.3 mmHg. The calculated aortic valve area is 1.5 cm2. There is mild aortic stenosis. There is mild aortic regurgitation. Tricuspid Valve: The tricuspid valve leaflets are thin and pliable. There is moderate tricuspid regurgitation. The right ventricular systolic pressure is estimated to be at least 76 mmHg based on an estimated right atrial pressure of 3 mm Hg. There is severe pulmonary hypertension. Pulmonic Valve: The pulmonic valve is not well visualized. There is mild pulmonic regurgitation. Great Vessels: The aortic root is normal size. The dimensions of the ascending aorta are normal. The IVC is of normal diameter and collapses greater than 50% with a sniff. This suggests a low right atrial pressure of 3 mm Hg. Pericardium/ Pleura There is no pericardial effusion. There is no pleural effusion. MMode/2D Measurements & Calculations LVIDd: 4.3 cm LVOT diam: 1.9 cm LVIDs: 3.7 cm Ao root diam: 2.8 cm FS: 14.8 % Ao Arch Diam (Prox Trans): 3.3 cm EPSS: 0.75 cm IVSd: 0.63 cm LVPWd: 0.58 cm LV jarrett. diameter/BSA (cm/m^2): 2.3 LV sys. diameter/BSA (cm/m^2): 2.0 LA A2 area: 23.0 cm2 RA long axis: 5.4 cm LA A4 area: 21.3 cm2 RA area: 18.0 cm2 LA length (vol): 6.1 cm RA vol: 50.7 ml LA vol: 68.6 ml RA : 27.3 ml/m2 LA vol index: 36.9 ml/m2 IVC diam: 1.5 cm RVD1 (basal): 4.3 cm RVD2 (mid): 3.5 cm TAPSE: 1.6 cm Doppler Measurements & Calculations Ao V2 max: 182.8 cm/sec LVOT Max Yoshi: 98.5 cm/sec Ao V2 mean: 123.2 cm/sec LV V1 max P.9 mmHg Ao max P.0 mmHg LV V1 VTI: 17.4 cm Ao mean P.3 mmHg BERYL(I,D): 1.4 cm2 Ao V2 VTI: 34.0 cm BERYL(V,D): 1.5 cm2 sev ratio: 0.51 BERYL indexed to BSA (cm^2/m^2): 0.77 AI P1/2t: 480.4 msec AI dec slope: 248.6 cm/sec2 Med Peak E' Yoshi: 5.2 cm/sec TR max yoshi: 434.4 cm/sec Lat Peak E' Yoshi: 5.2 cm/sec TR max P.5 mmHg MVA(VTI): 0.71 cm2 PA V2 max: 97.8 cm/sec PA V2 mean: 63.2 cm/sec PA mean P.8 mmHg PA pr(Accel): 42.2 mmHg MV V2 mean: 169.3 cm/sec SV(LVOT): 48.4 ml MV mean P.8 mmHg MV V2 VTI: 68.1 cm MV P1/2t-pr_phl: 147.2 msec Reading Physician:01:15 PM
--- NOTE | 2024-12-04 16:51 | PM.HP.1 ---
History of Present Illness History of Present Illness Date Patient Seen: 12/04/24 Time Patient Seen: 16:51 Chief complaint: N/V Had a fall today Narrative: Patient was an 84-year-old female who stays at [facility]. She sat up in bed this morning and became quite dizzy. She then fell and injured her hip. She was then brought to the ER where radiographs imaging were unremarkable. She did describe some element of vertigo. She had been feeling fine recently denies recent URI symptoms. In the ED she was on oxygen and when she was going to be discharge she could not wean off from oxygen without dropping her sats in the mid 80s. She denies a history of fluid in her lungs but has had some pedal edema. She was no known heart history but has had stroke in the past. The patient will be admitted for volume overload and diuresed. She does not see a poolroom/poolhall manager and has no known heart problems. [facility] Social History Smoking Status: Never smoker Meds Home Medications and Allergies Home Medications ?Medication ?Instructions ?Recorded ?Confirmed ?Type furosemide 40 mg tablet (Lasix) 40 mg PO DAILY #3 tabs 07/28/24 Rx Allergies Allergy/AdvReac Type Severity Reaction Status Date / Time No Known Drug Allergies Allergy Verified 12/04/24 08:41 Review of Systems Review of Systems Narrative: All else reviewed and otherwise unremarkable except as noted in the history and physical. Exam Vital Signs (past 8 hours): - 12/04/24 09:00 12/04/24 09:01 12/04/24 09:36 Pulse Rate 87 93 H Respiratory Rate 13 Blood Pressure 150/67 H Pulse Oximetry 85 L 92 Oxygen Delivery Method Oxygen Flow Rate 12/04/24 09:37 12/04/24 09:37 12/04/24 10:00 Pulse Rate 94 H 92 H Respiratory Rate 11 L 13 Blood Pressure 163/69 H Pulse Oximetry 93 89 L Oxygen Delivery Method Oxygen Flow Rate 12/04/24 10:01 12/04/24 10:01 12/04/24 10:30 Pulse Rate 93 H 86 Respiratory Rate 12 12 Blood Pressure 158/71 H Pulse Oximetry 88 L 92 Oxygen Delivery Method Nasal Cannula Oxygen Flow Rate 2 12/04/24 10:30 12/04/24 11:00 12/04/24 11:00 Pulse Rate 84 Respiratory Rate 9 L Blood Pressure 147/64 H 136/57 L Pulse Oximetry 92 Oxygen Delivery Method Oxygen Flow Rate 12/04/24 11:30 12/04/24 11:31 12/04/24 11:31 Pulse Rate 82 82 Respiratory Rate 12 12 Blood Pressure 144/62 H Pulse Oximetry 96 96 Oxygen Delivery Method Oxygen Flow Rate 12/04/24 12:00 12/04/24 12:00 12/04/24 12:30 Pulse Rate 92 H 92 H Respiratory Rate 13 15 Blood Pressure 156/69 H Pulse Oximetry 93 90 L Oxygen Delivery Method Oxygen Flow Rate 12/04/24 12:30 12/04/24 13:00 12/04/24 13:01 Pulse Rate 89 90 Respiratory Rate 14 13 Blood Pressure 156/67 H Pulse Oximetry 94 94 Oxygen Delivery Method Oxygen Flow Rate 12/04/24 13:01 12/04/24 13:30 12/04/24 13:30 Pulse Rate 91 H Respiratory Rate 13 Blood Pressure 144/64 H 152/73 H Pulse Oximetry 93 Oxygen Delivery Method Oxygen Flow Rate 12/04/24 14:00 12/04/24 14:01 12/04/24 14:01 Pulse Rate 99 H 96 H Respiratory Rate 19 14 Blood Pressure 130/56 L Pulse Oximetry 96 96 Oxygen Delivery Method Oxygen Flow Rate 12/04/24 14:30 12/04/24 14:30 12/04/24 15:00 Pulse Rate 88 Respiratory Rate 11 L Blood Pressure 142/71 H 151/70 H Pulse Oximetry 97 Oxygen Delivery Method Oxygen Flow Rate 12/04/24 15:00 12/04/24 15:30 12/04/24 15:30 Pulse Rate 85 83 Respiratory Rate 14 11 L Blood Pressure 148/67 H Pulse Oximetry 95 95 Oxygen Delivery Method Oxygen Flow Rate 12/04/24 16:00 12/04/24 16:01 12/04/24 16:01 Pulse Rate 83 82 Respiratory Rate 13 14 Blood Pressure 169/71 H Pulse Oximetry 97 97 Oxygen Delivery Method Oxygen Flow Rate Oxygen Delivery Method Nasal Cannula Oxygen Flow Rate 2 Narrative Exam Narrative: NAD, alert and oriented, fluent speech, calm. Normocephalic skull, EOMI, anicteric sclera, symmetric pupils. Oropharynx unremarkable, no droop. Neck supple, midline trachea, no adenopathy. Lungs clear, normal rate and effort. Heart regular, no murmur gallop or rub. Abdomen is soft, non distended and non tender. Extremities: 1+ pedal edema. Skin is free of rash or lesions. Joints are not swollen or deformed. Judgment appears to be normal. Objective ECG Impression: Rate: 89 P: 75 IL: 206 QRS: 92 QRSD: 84 T: 15 QT: 420 QTc: 511 Interpretive Statements Normal sinus rhythm Rightward axis Nonspecific ST and T wave abnormality Prolonged QT Imaging Multiple studies:: Radiologist's impression: Head CT: No acute intracranial pathology. Severe small vessel ischemic change. Old right MCA distribution infarct. Cervical spine CT: No displaced fracture or traumatic subluxation. Severe cervical spondylosis. Pulmonary edema. Chest, abdomen, and pelvis CT: No evidence of traumatic injury to the chest, abdomen or pelvis. Congestive heart failure Cholelithiasis. Indeterminate 1.9 cm left adrenal nodule. Chronic compression fracture. Chest x-ray: Mild pulmonary edema. Labs 12/04/24 08:35 12/04/24 08:35 Labs: Laboratory Results - last 24 hr 12/04/24 12/04/24 12/04/24 08:35 12:56 16:36 WBC 4.9 RBC 4.11 Hgb 12.3 Hct 36.8 MCV 89.4 MCH 30.0 MCHC 33.6 RDW 14.7 Plt Count 185 Neut % (Auto) 74.3 Lymph % (Auto) 10.9 L [place] % (Auto) 9.9 Eos % (Auto) 3.7 Baso % (Auto) 1.2 Neut # (Auto) 3600 Lymph # (Auto) 500 L [place] # (Auto) 500 Eos # (Auto) 200 Baso # (Auto) 100 PT 14.6 H INR 1.3 APTT 28 Sodium 138 Potassium 3.7 Chloride 97 L Carbon Dioxide 31 BUN 34 H Creatinine 1.46 H Estimated GFR 35 L BUN/Creatinine Ratio 23.3 H Glucose 164 H POC Whole Bld Glucose 116 H Calcium 9.9 Magnesium 1.4 L Total Bilirubin 0.7 AST 37 H ALT 32 Alkaline Phosphatase 59 Total Creatine Kinase 41 Troponin I < 0.012 NT-Pro-B Natriuret Pep 1060 H Total Protein 8.1 Albumin 4.7 Globulin 3.4 Albumin/Globulin Ratio 1.4 Lipase 80 Urine Color Yellow Urine Appearance Clear Urine pH 7.5 Ur Specific [place] <=1.005 Urine Protein Negative Urine Glucose (UA) Negative Urine Ketones Negative Urine Occult Blood Negative Urine Nitrate Negative Urine Bilirubin Negative Urine Urobilinogen 1.0 Ur Leukocyte Esterase Trace H Urine RBC 0-1/hpf Urine WBC 0-1/hpf Ur Squamous Epith Cells 1-5 /hpf Urine Bacteria None seen Ur Culture Indicated? Cult not indicated Vol Urine Centrifuged 10ml (spun) Assessment & Plan Assessment & Plan narrative: 1. Acute heart failure with pulmonary edema, present on admission and active. 2. Previous strokes, stable. 3. DM 2 PLAN: -Lasix 20 IV QD. -trend troponins -ECHO -diabetic diet and correctional lispro. Anticipate 1 night in the hospital, supports observation status. Daughter and son-in-law are proxy decision makers. Time-Based Coding :: 35 min spent with patient and on the chart (including review of chart, obtaining history, exam, reviewing outside data, placing orders, documenting exam and treatment plan, and counseling patient) on 12/04. Quality MIPS - Admit I confirm the patient?s Advance Care Plan is present, Code status is documented, Surrogate decision maker is in patient?s record [If Yes, STOP here]: Yes MIPS - Meds 'Current medications' to include all prescriptions, [id number] products, herbals, cannabis/cannabidiol products, and vitamin/mineral/dietary (nutritional) supplements. I have utilized all available resources to obtain, update, or review the patient?s current medications. [If Yes, STOP here]: Yes
[2024-12-04] MEDS: APIXABAN 5 MG TABLET 2.5 MG PO (21:31)
[2024-12-05] VITALS (7 sets, daily range): BP systolic 88–132; BP diastolic 39–61; PULSE 72–96; RESP 16–17; TEMP 35.9–36.4; O2SAT 94–98
[2024-12-05] MEDS: LEVOTHYROXINE 75 MCG TABLET PO (05:34)
[2024-12-05 06:32] LABS: Add Manual Diff / Slide Review NO; Hematocrit 34.7 % (36-46); Hemoglobin 11.7 g/dL (12.0-16.0); Lymphocytes Absolute Auto 600 /uL (1100-4500); Mean Corpuscular HGB Conc 33.8 % (30-36); Mean Corpuscular Hemoglobin 30.1 PG (26-34); Mean Corpuscular Volume 89.0 fL (80-100); Platelet Count 165 X10^3/uL (150-400)
[2024-12-05 06:43] LABS: Blood Urea Nitrogen 27 mg/dL (7-17); Calcium 9.5 mg/dL (8.4-10.2); Carbon Dioxide 32 mmol/L (22-32); Chloride 99 mmol/L (98-107); Estimated Glomerular Filt Rate 42 mL/min (>60); Glucose 159 mg/dL (70-99); HEMOLYSIS < 15 (0-50); Potassium 3.7 mmol/L (3.4-5.1); Sodium 138 mmol/L (137-145)
[2024-12-05] MEDS: INSULIN LISPRO 100 UNIT/ML 3ML VIAL SUBCUT ×4 (08:18→20:17)
[2024-12-05] MEDS: APIXABAN 5 MG TABLET 2.5 MG PO ×2 (08:19→20:18)
[2024-12-05] MEDS: CITALOPRAM 10 MG TABLET 20 MG PO (08:19)
[2024-12-05] MEDS: GABAPENTIN 100 MG CAPSULE PO (08:20)
[2024-12-05] MEDS: PANTOPRAZOLE DR 40 MG TABLET PO (08:20)
[2024-12-05] MEDS: FUROSEMIDE 20 MG/2 ML VIAL IV (08:23)
--- NOTE | 2024-12-05 11:33 | P.PN_ITS ---
Subjective Subjective Interval history: Summary: She was admitted from [facility] for dizziness. She was found to be hypoxemic and have pulmonary edema on imaging. This appears to be a new finding. She was diuresed overnight, and now is weaned off oxygen. She feels weak with walking and unsteady in gait. Echo is pending. S: Weak, but breathing is better. She does feel quite weak with walking short distances and also feels unsteady in terms of her gait. Exam Vital Signs (past 8 hours): - 12/05/24 05:25 12/05/24 06:30 12/05/24 06:31 Temperature 96.9 F L Pulse Rate 72 91 H 96 H Respiratory Rate 16 Blood Pressure 112/56 L 116/50 L 88/39 L Pulse Oximetry 98 Oxygen Delivery Method Oxygen Flow Rate 1 12/05/24 07:00 12/05/24 08:00 Temperature 96.6 F L Pulse Rate 74 Respiratory Rate 17 Blood Pressure 115/46 L Pulse Oximetry 96 Oxygen Delivery Method Room Air Oxygen Flow Rate 1 Oxygen Delivery Method Room Air Oxygen Flow Rate 1 Narrative Exam Narrative: NAD, alert and oriented. Fluent speech. Lungs are clear, normal rate and effort. Heart is regular, no murmur gallop or rub. Abdomen is soft, non distended. Extremities are free of edema. Objective Imaging Echo: Radiologist's impression: Pending. Labs 12/05/24 06:20 12/05/24 06:20 Labs: Laboratory Results - last 24 hr 12/04/24 12/04/24 12/04/24 12:56 16:36 21:19 WBC RBC Hgb Hct MCV MCH MCHC RDW Plt Count Neut % (Auto) Lymph % (Auto) [place] % (Auto) Eos % (Auto) Baso % (Auto) Neut # (Auto) Lymph # (Auto) [place] # (Auto) Eos # (Auto) Baso # (Auto) Sodium Potassium Chloride Carbon Dioxide BUN Creatinine Estimated GFR BUN/Creatinine Ratio Glucose POC Whole Bld Glucose 116 H 147 H Calcium Urine Color Yellow Urine Appearance Clear Urine pH 7.5 Ur Specific [place] <=1.005 Urine Protein Negative Urine Glucose (UA) Negative Urine Ketones Negative Urine Occult Blood Negative Urine Nitrate Negative Urine Bilirubin Negative Urine Urobilinogen 1.0 Ur Leukocyte Esterase Trace H Urine RBC 0-1/hpf Urine WBC 0-1/hpf Ur Squamous Epith Cells 1-5 /hpf Urine Bacteria None seen Ur Culture Indicated? Cult not indicated Vol Urine Centrifuged 10ml (spun) 12/05/24 12/05/24 06:20 11:00 WBC 5.2 RBC 3.90 L Hgb 11.7 L Hct 34.7 L MCV 89.0 MCH 30.1 MCHC 33.8 RDW 14.9 H Plt Count 165 Neut % (Auto) 72.9 Lymph % (Auto) 10.8 L [place] % (Auto) 11.7 Eos % (Auto) 3.6 Baso % (Auto) 1.0 Neut # (Auto) 3800 Lymph # (Auto) 600 L [place] # (Auto) 600 Eos # (Auto) 200 Baso # (Auto) 100 Sodium 138 Potassium 3.7 Chloride 99 Carbon Dioxide 32 BUN 27 H Creatinine 1.27 H Estimated GFR 42 L BUN/Creatinine Ratio 21.3 Glucose 159 H POC Whole Bld Glucose 188 H Calcium 9.5 Urine Color Urine Appearance Urine pH Ur Specific [place] Urine Protein Urine Glucose (UA) Urine Ketones Urine Occult Blood Urine Nitrate Urine Bilirubin Urine Urobilinogen Ur Leukocyte Esterase Urine RBC Urine WBC Ur Squamous Epith Cells Urine Bacteria Ur Culture Indicated? Vol Urine Centrifuged [facility] Social History household members: none Smoking Status: Former smoker alcohol intake: current Assessment & Plan Assessment & Plan narrative: 1. Acute heart failure with pulmonary edema, present on admission and active. 2. Previous strokes, stable. 3. DM 2 PLAN: -Lasix 20 IV QD. -trend troponins (0.012, 0.012). -ECHO completed and not read. -diabetic diet and correctional lispro. -PT eval. She states she still feels very weak and does not feel safe to return home assisted living facility where she has to ambulate a significant distance. Anticipate a 2nd midnight in the hospital. Supports inpatient status. Daughter and son-in-law are proxy decision makers. Time-Based Coding :: [TOTAL MINUTES] spent with patient and on the chart (including review of chart, obtaining history, exam, reviewing outside data, placing orders, documenting exam and treatment plan, and counseling patient) on [DATE]. Quality VTE Deep Vein Thrombosis/Pulmonary Embolism Present on Admission: No
--- NOTE | 2024-12-05 14:15 | PT.IIE ---
Physical Therapy Inpatient Evaluation/Re-Eval M1 PT/OT-IP Prior Functional Status Start: 12/05/24 15:22 Freq: NEEDED Status: Active Protocol: Document 12/05/24 14:15 AB (Rec: 12/05/24 15:38 AB [id number]) Medical Review Prior Functional Status Medical History Yes Reviewed Communication able to make needs known Mobility and Gait pt stated that she was modified independent with all mobilities and able to ambulate without AD inside her room but uses a FWW for long distances/walking outside her room Social History Household Members none Living Arrangements Assisted Living Number of Stairs To pt lives at [facility], operated by [facility]? Home Environment Standard Height Toilet,Walk in Shower,Built-In Shower Seat Home Equipment Front Wheel Walker,Hand Held Shower,Grab Bars Near Toilet,Grab Bars In Shower M2 PT-IP Current Condition Start: 12/05/24 15:22 Freq: NEEDED Status: Active Protocol: Document 12/05/24 14:15 AB (Rec: 12/05/24 15:38 [id number]) Physical Therapy Current Condition Current Condition Evaluation Date 12/05/24 Treatment Diagnosis heart failure; pulmonary edema; difficulty in walking Onset Date 12/04/24 M3 PT-IP Subjective Start: 12/05/24 15:22 Freq: NEEDED Status: Active Protocol: Document 12/05/24 14:15 AB (Rec: 12/05/24 15:38 AB [id number]) Subjective Physical Therapy Visit Type Type Initial Evaluation Visit Start Time 14:15 Visit Stop Time 15:00 Number of ASSISTANT PROFESSOR OF COMMUNICATION Visits 0 Physical Therapy Visit Comments Patient Comments agreeable to do PT Therapy Pain Assessment Pain When Pain Assessed w/pressure Location Abdomen Intensity 5 Scale Used Numeric (0 - 10) Pain Management Modification of Treatment,Re-positioning,Timing of Techniques Activity with Medications M4 PT-IP Mobility and Gait Start: 12/05/24 15:22 Freq: NEEDED Status: Active Protocol: Document 12/05/24 14:15 AB (Rec: 12/05/24 15:38 AB [id number]) PT-Bed Mobility Assessment Supine to Sit Supine to Sit Standby Assistance PT-Transfer Assessment Sit to and From Stand Sit to and from Minimal Assistance,1 Person Assistance,Use of Upper Stand Extremities Equipment Transfer Assistive Gait Belt,Front Wheeled Walker Device Orthotic/Prosthetic No Devices or Brace: Comments Mobility Comments pt in bed and agreeable to do PT. obtained PLOF and home set up. BP: 121/61 O2 sat at RA: 95% and PA: varies: 91-96 bpm c/o slight abdominal tenderness when pt puts pressure from her fall per pt where she braces herself and fell forward on the bed landing on her abdomen at the [facility]. pt completed supine to sit SBA. able to sit on EOB SBA. sit to stand min A. slow guarded movements noted. pt ambulated using FWW CGA but only able to ambulate ~ 10 ft needing to sit down. presents with very slow paced unsteady gait. BP: 122/57 O2 sat: 92% PA: varies: 95 -99 bpm pt c/o fatigue and requested to go back in bed. completed sit to supine SBA. positioned pt in bed. call light and table placed within reach. Gait Assessment Gait Gait Assistance Contact Guard Assist Required: Distance (Feet) 10 Able to Maintain Yes Weight Bearing Status During Gait Assistive Devices Assistive Device Gait Belt,Front Wheeled Walker Orthotic/Prosthetic No Devices or Brace: Gait Deviations General Gait Pattern Decreased Stride Length,Decreased Feet Clearance Factors Limiting Gait Function Factors Limiting Decreased Activity Tolerance,Decreased Strength,Pain, Gait Function Poor Balance,Poor Safety Awareness,Respiratory Distress PT-Balance Assessment Sitting Balance and Reactions Static Sitting Normal Balance Ability Dynamic Sitting Good Balance Ability Standing Balance and Reactions Static Standing Fair Balance Ability Dynamic Standing Fair Balance Ability Device Used FWW M5 PT-IP Objective Assessments Start: 12/05/24 15:22 Freq: NEEDED Status: Active Protocol: Document 12/05/24 14:15 AB (Rec: 12/05/24 15:38 AB [id number]) Orientation Orientation/Cognition Level of Alertness Alert Orientation Name,Place,Situation Language Function No Deficits Noted Ability Safety Awareness Decreased Safety Awareness Memory Description No Deficits Noted Gross Range of Motion Lower Extremity ROM Assessment Within Functional Limits Strength Lower Extremity Strength Hip 4-/5 Knee 4-/5 Sensation Assessment Sensation Gross Sensation Right LE Impaired,Left LE Impaired Sensation Numbness Description Comments Sensation Comments B feet neuropathies per pt Muscle Tone Muscle Tone WNL Yes M6 PT-IP Treatment Start: 12/05/24 15:22 Freq: NEEDED Status: Active Protocol: Document 12/05/24 14:15 AB (Rec: 12/05/24 15:38 AB [id number]) Physical Therapy Treatment Education Education Provided Precautions,Safety M7 PT-IP Assessment and Plan Start: 12/05/24 15:22 Freq: NEEDED Status: Active Protocol: Document 12/05/24 14:15 AB (Rec: 12/05/24 15:38 [id number]) PT Summary Assessment and Plan Potential Rehabilitation Fair Potential Status of Condition Evolving at Evaluation Summary Impairments Pain,ROM,Strength,Balance,Coordination,Sensation,Tone, Cognition,Bed Mobility,Transfers,Gait,Activity Tolerance Assessment Summary pt is an 84 y/o F who is admitted for acute heart failure with pulmonary edema. pt was independent without use of AD in her room prior to admission and was able to ambulate from her room to the dining room at the [facility] where she lives using FWW for long distance ambulation. pt requiring min A for sit to stand and CGA for ambulation using FWW but pt only tolerated ~ 10 ft of ambulation using FWW. pt c/o fatigue and presents with unsteady slow paced gait. Pt will require 24/7 assist and will benefit from SNF rehab to improve overall strength and improve functional independence. Goals Bed Mobility Goal Independent Transfer Goal Independent,Front Wheeled Walker Gait Goal Independent,Front Wheel Walker Gait Distance 150 Other Goals improve transfers and ambulation without AD ~ 100 ft SBA Days to Meet Goals 10 Frequency of Treatment Frequency Of Once a Day Treatment Treatment Plan Physical Therapy Bed Mobility Training,Transfer Training,Gait Training, Treatment Plan Therapeutic Exercise,Balance Retraining,Discharge Planning,Hot or Cold Pack,Neuromuscular Re-ed, Coordination Retraining Precautions Other Precautions falls Recommendations To Nursing Amount of Assist 1 Person Assist Needed Discharge Recommendations PT Discharge SNF Rehab Recommendations Transportation Needs Private Vehicle,Wheelchair/Cabulance at Discharge - PT assist 1
--- NOTE | 2024-12-05 14:47 | CM.DANOTE ---
Initial DCP Assessment Note Pt is a 84 yo female, resident at [facility] in [place], admitted for management of CHF, wean O2, echo pending. PCP: facility provider Payer: [facility] ELIAZAR Attempted contact with [facility]; no answer. Left message for [facility] human resources administrator Justin Tenorio [phone] indicating patient may be ready for return to [facility] 12/06. Then discussed patient w/PT who reports patient has been indp in her [facility] apartment up until now, patient would benefit from SNF and is agreeable. Patient is A+O; reports to PT she has been to SNF in the past. This APPLIANCE TECHNICIAN unable to manage next steps in coordination today. Still to do: Discuss recommendation for SNF with patient, get SNF preferences, make SNF referrals if patient agreeable and contact Mona to initiate SNF auth request, need PASRR. No OT this weekend. Social work team will plan to follow clinical course closely, assist with discharge coordination. TAI Finley Discharge Planning/Care Management CM Discharge Assessment Start: 12/04/24 16:56 Freq: Status: Active Protocol: Document 12/05/24 14:45 ROXIE (Rec: 12/05/24 14:47 ROXIE [id number]) Discharge Planning Assessment Assigned Discharge TAI Isaacs Heel Former DPOA/Assigned Daughter Meaghan Rod P [phone] Designee Name Advance Directives? No History Provided By Medical Record Prior Living Assisted Living Arrangements Comment [facility] Household Members none Facility Name [facility] Admitted From:
[2024-12-05] MEDS: ACETAMINOPHEN 325 MG TABLET 650 MG PO (16:26)
[2024-12-05] MEDS: ATORVASTATIN 20 MG TABLET 40 MG PO (20:16)
[2024-12-05 22:06] LABS: Magnesium 1.5 mg/dL (1.6-2.3)
[2024-12-06] VITALS (7 sets, daily range): BP systolic 102–132; BP diastolic 40–70; PULSE 83–100; RESP 15–18; TEMP 35.8–36.1; O2SAT 91–96
[2024-12-06] MEDS: LEVOTHYROXINE 75 MCG TABLET PO (06:23)
[2024-12-06] MEDS: PANTOPRAZOLE DR 40 MG TABLET PO (06:24)
[2024-12-06 06:36] LABS: Add Manual Diff / Slide Review NO; Hematocrit 36.3 % (36-46); Hemoglobin 12.1 g/dL (12.0-16.0); Lymphocytes Absolute Auto 600 /uL (1100-4500); Mean Corpuscular HGB Conc 33.3 % (30-36); Mean Corpuscular Hemoglobin 29.9 PG (26-34); Mean Corpuscular Volume 89.7 fL (80-100); Platelet Count 178 X10^3/uL (150-400)
[2024-12-06 06:53] LABS: Blood Urea Nitrogen 29 mg/dL (7-17); Calcium 9.6 mg/dL (8.4-10.2); Carbon Dioxide 31 mmol/L (22-32); Chloride 97 mmol/L (98-107); Estimated Glomerular Filt Rate 42 mL/min (>60); Glucose 221 mg/dL (70-99); HEMOLYSIS < 15 (0-50); Potassium 3.7 mmol/L (3.4-5.1); Sodium 135 mmol/L (137-145)
--- NOTE | 2024-12-06 07:59 | PM.PN.1 ---
Subjective Subjective Date Patient Seen: 12/06/24 Interval history: She tells me that she has been able to get up and walk to the bathroom with her walker without getting dizzy. She says she is sleeping better. We discussed that her primary care is through the [facility] at [facility]. After my visit she became dizzy when getting up with nursing and repeated that with therapy with her blood pressure dropping from 124/59 sitting down to 95/50 standing. The heart rate shelli from 101 up to 115. The magnesium level is low at 1.5 and has been supplemented orally. The glucose is 221 and the CBC and BMP are normal. Exam Vital Signs (past 8 hours): - 12/06/24 00:00 12/06/24 04:00 Temperature 96.9 F L 96.9 F L Pulse Rate 85 91 H Respiratory Rate 15 15 Blood Pressure 109/54 L 110/58 L Pulse Oximetry 92 94 Oxygen Flow Rate 0 0 Oxygen Delivery Method Room Air Oxygen Flow Rate 0 Narrative Exam Narrative: She is alert and oriented. No apparent distress. Heart is regular rate and rhythm without murmur Lungs are clear to auscultation bilaterally Extremities have no ankle edema. Motor function is 3/5 in all extremities. Objective Labs 12/06/24 06:00 12/06/24 06:00 Labs: Laboratory Results - last 24 hr 12/05/24 12/05/24 12/05/24 11:00 16:43 20:12 WBC RBC Hgb Hct MCV MCH MCHC RDW Plt Count Neut % (Auto) Lymph % (Auto) [place] % (Auto) Eos % (Auto) Baso % (Auto) Neut # (Auto) Lymph # (Auto) [place] # (Auto) Eos # (Auto) Baso # (Auto) Sodium Potassium Chloride Carbon Dioxide BUN Creatinine Estimated GFR BUN/Creatinine Ratio Glucose POC Whole Bld Glucose 188 H 196 H 251 H Calcium Magnesium 12/05/24 12/06/24 12/06/24 21:36 06:00 07:31 WBC 4.8 RBC 4.05 Hgb 12.1 Hct 36.3 MCV 89.7 MCH 29.9 MCHC 33.3 RDW 14.7 Plt Count 178 Neut % (Auto) 70.7 Lymph % (Auto) 13.2 L [place] % (Auto) 10.6 Eos % (Auto) 4.2 H Baso % (Auto) 1.3 Neut # (Auto) 3400 Lymph # (Auto) 600 L [place] # (Auto) 500 Eos # (Auto) 200 Baso # (Auto) 100 Sodium 135 L Potassium 3.7 Chloride 97 L Carbon Dioxide 31 BUN 29 H Creatinine 1.28 H Estimated GFR 42 L BUN/Creatinine Ratio 22.7 H Glucose 221 H POC Whole Bld Glucose 236 H Calcium 9.6 Magnesium 1.5 L PFSH Social History household members: none Smoking Status: Former smoker alcohol intake: current Assessment & Plan Assessment & Plan narrative: 1. Acute heart failure with pulmonary edema, present on admission and active. 2. Previous strokes, stable. 3. DM 2 4. Orthostatic Hypotension/Dizziness PLAN: -Lasix 20 IV QD. -trend troponins (0.012, 0.012). -ECHO completed and not read. Verbal report was an EF of 45% and ?valve issues. ? -diabetic diet and correctional lispro. -PT and OT continue to follow. -discharge planned for today has been delayed due to continued orthostatic symptoms. -may need IV fluid bolus but we are approaching that cautiously due to the imaging reports of pulmonary edema. Daughter and son-in-law are proxy decision makers. Time-Based Coding :: [TOTAL MINUTES] spent with patient and on the chart (including review of chart, obtaining history, exam, reviewing outside data, placing orders, documenting exam and treatment plan, and counseling patient) on [DATE]. Quality VTE Deep Vein Thrombosis/Pulmonary Embolism Present on Admission: No
[2024-12-06] MEDS: INSULIN LISPRO 100 UNIT/ML 3ML VIAL SUBCUT ×4 (08:21→21:05)
[2024-12-06] MEDS: APIXABAN 5 MG TABLET 2.5 MG PO ×2 (08:30→20:59)
[2024-12-06] MEDS: MAGNESIUM CHLORIDE 64 MG TABLET 128 MG PO (08:30)
[2024-12-06] MEDS: GABAPENTIN 100 MG CAPSULE PO (08:30)
[2024-12-06] MEDS: CITALOPRAM 10 MG TABLET 20 MG PO (08:30)
--- NOTE | 2024-12-06 09:21 | PC.NURSE ---
Patient's IV line did not flush this morning, unable to give IV lasix. Patient states she is hopeful to be discharged today and feeling better. Dr. Velazquez notified and ok to change morning lasix dose to oral. Non working IV removed intact. Will continue to follow.
[2024-12-06] MEDS: FUROSEMIDE 20 MG TABLET PO (09:34)
--- NOTE | 2024-12-06 10:27 | PC.NURSE ---
Patient was up standing at sink with FLY MAKER to brush her teeth. This RN took over to assist patient and patient finished brushing and then became dizzy, she was assisted to take a few steps back to bed and sit down. BP 118/58 HR 118 noted once sitting. Patient remained alert but said she did feel woozy, laying back in bed with bed alarm on and call light within reach. Dr. Velazquez notified.
--- NOTE | 2024-12-06 11:22 | PT.IPTN ---
Physical Therapy Treatment Note M2 PT-IP Current Condition Start: 12/05/24 15:22 Freq: NEEDED Status: Active Protocol: Document 12/05/24 14:15 AB (Rec: 12/05/24 15:38 AB [id number]) Physical Therapy Current Condition Current Condition Evaluation Date 12/05/24 Treatment Diagnosis heart failure; pulmonary edema; difficulty in walking Onset Date 12/04/24 M3 PT-IP Subjective Start: 12/05/24 15:22 Freq: NEEDED Status: Active Protocol: Document 12/06/24 11:22 DLM (Rec: 12/06/24 11:35 DLM Desktop) Subjective Physical Therapy Visit Type Type Treatment Note Visit Start Time 10:50 Visit Stop Time 11:22 Notes 32 min Number of ELECTORATE OFFICER Visits 0 Physical Therapy Visit Comments Patient Comments She is concerned that her eyes seem a little more blurry than normal. She has been able to read the menu okay but some things on the TV are a little blurry. She does not feel safe going back to her apt alone after her episode of dizziness with nursing at the sink earlier this AM. Patient Goals She is eager to go back to her [facility] apt. M4 PT-IP Mobility and Gait Start: 12/05/24 15:22 Freq: NEEDED Status: Active Protocol: Document 12/06/24 11:22 DLM (Rec: 12/06/24 11:35 DLM Desktop) PT-Bed Mobility Assessment Rolling Type of Rolling Bilateral Level of Assist Independent Supine to Sit Supine to Sit Independent Sit to Supine Sit to Supine Independent Scooting Scooting to Edge of Independent Bed PT-Transfer Assessment Sit to and From Stand Sit to and from Standby Assistance,Contact Guard Assistance,Use of Stand Upper Extremities Equipment Transfer Assistive Gait Belt,Front Wheeled Walker Device Comments Mobility Comments she describes feeling shaky and weak sitting up, no dizziness No dizziness rolling in bed. She had one very mild episode of dizziness with sit to supine that resolved very quickly (no nystagmus). Gait Assessment Gait Gait Assistance Contact Guard Assist Required: Distance (Feet) 2 Assistive Devices Assistive Device Gait Belt,Front Wheeled Walker Gait Deviations General Gait Pattern Decreased Stride Length,Decreased Feet Clearance Factors Limiting Gait Function Factors Limiting Decreased Activity Tolerance,Poor Balance Gait Function Comments Gait Comments she describes feeling shaky and weak, side-stepping at edge of bed due to episode of dizziness and near syncope with nursing at the sink earlier this AM, pt BP drops in standing PT-Balance Assessment Sitting Balance and Reactions Static Sitting Normal Balance Ability Dynamic Sitting Good Balance Ability Standing Balance and Reactions Static Standing Good Balance Ability Dynamic Standing Good Balance Ability Device Used FWW M5 PT-IP Objective Assessments Start: 12/05/24 15:22 Freq: NEEDED Status: Active Protocol: Document 12/05/24 14:15 AB (Rec: 12/05/24 15:38 AB [id number]) Orientation Orientation/Cognition Level of Alertness Alert Orientation Name,Place,Situation Language Function No Deficits Noted Ability Safety Awareness Decreased Safety Awareness Memory Description No Deficits Noted Gross Range of Motion Lower Extremity ROM Assessment Within Functional Limits Strength Lower Extremity Strength Hip 4-/5 Knee 4-/5 Sensation Assessment Sensation Gross Sensation Right LE Impaired,Left LE Impaired Sensation Numbness Description Comments Sensation Comments B feet neuropathies per pt Muscle Tone Muscle Tone WNL Yes M6 PT-IP Treatment Start: 12/05/24 15:22 Freq: NEEDED Status: Active Protocol: Document 12/06/24 11:22 DLM (Rec: 12/06/24 11:35 DLM Desktop) Physical Therapy Treatment Education Education Provided Safety Other Treatments Other Treatment Testing for orthostatic hypotension: Performed Supine BP 124/59, HR 101, O2 sat 94% Sitting: BP 124/63, HR 109-111. O2 sat 94% Standing BP 108/60, HR 113-115, O2 sat 97% Second standing vitals after using the bedside commode to urinate: BP 95/50, HR 110 Back in supine BP 115/63 and HR 106 M7 PT-IP Assessment and Plan Start: 12/05/24 15:22 Freq: NEEDED Status: Active Protocol: Document 12/06/24 11:22 DLM (Rec: 12/06/24 11:35 DLM Desktop) PT Summary Assessment and Plan Summary Impairments Pain,ROM,Strength,Balance,Coordination,Sensation,Tone, Cognition,Bed Mobility,Transfers,Gait,Activity Tolerance Progress Towards Slow Progress due to Medical Issues Goals Assessment Summary Francine is resting in bed at the start of this visit. She had been feeling better and getting up to the toilet with nursing using the FWW. This morning she had another episode of getting very dizzy when standing at the sink with nursing. Clinical testing this visit is positive for orthostatic hypotension in standing that got worse during a second standing attempt. Her BP got as low as 95/50. Her HR varies from 101-115 during this visit. She described feeling shaky and weak this visit but no dizziness with drop in BP at this time. Pt returned to supine to rest. Continue to recommend SNF rehab until pt can consistently ambulate and standing without symptoms. Her nurse and physician were notified of her orthostatic hypotension during this visit. Goals Bed Mobility Goal Independent Transfer Goal Independent,Front Wheeled Walker Gait Goal Independent,Front Wheel Walker Gait Distance 150 Other Goals improve transfers and ambulation without AD ~ 100 ft SBA Days to Meet Goals 10 Frequency of Treatment Frequency Of Once a Day Treatment Treatment Plan Physical Therapy Bed Mobility Training,Transfer Training,Gait Training, Treatment Plan Therapeutic Exercise,Balance Retraining,Discharge Planning,Hot or Cold Pack,Neuromuscular Re-ed, Coordination Retraining Precautions Other Precautions fall risk, orthostatic hypotension Recommendations To Nursing Amount of Assist 1 Person Assist Needed Discharge Recommendations PT Discharge SNF Rehab Recommendations Transportation Needs Private Vehicle,Wheelchair/Cabulance at Discharge - PT assist 1
[2024-12-06] MEDS: INSULIN GLARGINE 100 UNIT/ML 3ML PEN 18 UNIT SUBCUT ×2 (14:47→21:04)
--- NOTE | 2024-12-06 15:20 | CM.DPNOTE ---
DCP Note PRODUCTION HELPER reviewed EMR provider was going to dc pt today but pt became dizzy with nursing/PT today. keep another day. PT rec SNF. PRODUCTION HELPER/UR RN emailed clinicals to [facility] for SNF auth request. PRODUCTION HELPER met with pt in room. reviewed recs. pt preference is to dc to [facility] with [facility] for RN/PT but open to [facility] if absolutely needed. has been to [facility] before. PRODUCTION HELPER emailed new referral to [facility] at , acceptance pending. [facility] needed PRODUCTION HELPER emailed new referral to [facility] intake team, acceptance pending. f2f/order needed P: 1) return to [facility] with [facility] vs 2) dc to [facility] acceptance pnding. [employer] auth [facility] pending. CM team will continue to follow closely for DCP coordination TAI Mohamud
[2024-12-06 17:19] LABS: Magnesium 1.5 mg/dL (1.6-2.3)
[2024-12-06] MEDS: ACETAMINOPHEN 325 MG TABLET 650 MG PO (21:00)
[2024-12-06] MEDS: ATORVASTATIN 20 MG TABLET 40 MG PO (21:02)
[2024-12-06] MEDS: SODIUM CHLORIDE 0.9% FLUSH 10 ML IV (21:12)
[2024-12-07 00:02] VITALS: BP 115/52; PULSE 90; RESP 18; TEMP 36.5; O2SAT 95
[2024-12-07 05:05] VITALS: BP 118/61; PULSE 92; RESP 16; TEMP 36.2; O2SAT 95
[2024-12-07] MEDS: LEVOTHYROXINE 75 MCG TABLET PO (06:33)
[2024-12-07] MEDS: PANTOPRAZOLE DR 40 MG TABLET PO (06:33)
[2024-12-07] MEDS: INSULIN LISPRO 100 UNIT/ML 3ML VIAL SUBCUT ×2 (07:58→12:10)
[2024-12-07 08:00] VITALS: BP 114/55; PULSE 87; RESP 15; TEMP 35.9; O2SAT 97
[2024-12-07] MEDS: FUROSEMIDE 20 MG TABLET PO (08:00)
[2024-12-07] MEDS: APIXABAN 5 MG TABLET 2.5 MG PO (08:00)
[2024-12-07] MEDS: INSULIN GLARGINE 100 UNIT/ML 3ML PEN 18 UNIT SUBCUT (08:00)
[2024-12-07] MEDS: GABAPENTIN 100 MG CAPSULE PO (08:00)
[2024-12-07] MEDS: CITALOPRAM 10 MG TABLET 20 MG PO (08:00)
[2024-12-07] MEDS: MAGNESIUM SULFATE 2 GM/50 ML PIGGYBACK IV (10:41)
[2024-12-07] MEDS: SODIUM CHLORIDE 0.9% FLUSH 10 ML IV (10:41)
--- NOTE | 2024-12-07 11:51 | PM.DS.1 ---
History of Present Illness History of Present Illness Date Patient Seen: 12/07/24 Chief complaint: N/V Had a fall today Narrative: Patient was an 84-year-old female who stays at [facility]. She sat up in bed this morning and became quite dizzy. She then fell and injured her hip. She was then brought to the ER where radiographs imaging were unremarkable. She did describe some element of vertigo. She had been feeling fine recently denies recent URI symptoms. In the ED she was on oxygen and when she was going to be discharge she could not wean off from oxygen without dropping her sats in the mid 80s. She denies a history of fluid in her lungs but has had some pedal edema. She was no known heart history but has had stroke in the past. The patient will be admitted for volume overload and diuresed. She does not see a clinical research physician and has no known heart problems. Discharge Providers Provider Date of admission: 12/04/24 15:28 Discharge Date: 12/07/24 Primary care physician: Jose Stuart MD Consults: 12/05/24 10:22 Consult to Physical Therapy Evaluate & Treat Comment: weakness Physician Instructions: Evaluate and Treat Discharge provider: Latesha Velazquez MD Summary Hospital Course Hospital Course: 1. Acute heart failure with pulmonary edema 2. Previous strokes 3. DM 2 4. Orthostatic Hypotension/Dizziness It took her several days of diuresis and then increased oral intake for her orthostatic hypotension and related dizziness to improve to the point where she was safe to return to her assisted living facility. She has been cleared by PT today. Her blood pressure does drop with standing but remains above 100 systolic, improved from yesterday. She will be continued on Lasix 20 mg daily for her pulmonary edema. This will need close follow-up with her SANITATION ASSOCIATE PCP at the facility. She will be referred for ongoing PT there. Mild proptosis noted on the day of discharge. Suggest/consider TSH at next blood draw as outpatient. -ECHO 40-45% EF with mild , Moderate TR and Moderate MR. Status at Discharge Cognitive/behavioral status at discharge: at baseline, oriented Functional status at discharge: uses cane/walker Overall status at discharge: patient is progressing back to baseline Exam Vital Signs (past 8 hours): - 12/07/24 05:05 12/07/24 08:00 Temperature 97.2 F L 96.7 F L Pulse Rate 92 H 87 Respiratory Rate 16 15 Blood Pressure 118/61 114/55 L Pulse Oximetry 95 97 Oxygen Flow Rate 0 0 Oxygen Delivery Method Room Air Oxygen Flow Rate 0 Narrative Exam Narrative: She looks much better today. Alert and oriented x3. Mild proptosis is noted. No apparent distress Heart is regular rate and rhythm without murmur Lungs are clear to auscultation bilaterally Extremities have no ankle edema She lives at [facility] and will be returning there today. Objective Labs 12/06/24 06:00 12/06/24 06:00 Labs: Laboratory Results - last 24 hr 12/06/24 12/06/24 12/06/24 16:46 17:00 20:59 POC Whole Bld Glucose 368 H 334 H Magnesium 1.5 L 12/07/24 12/07/24 12/07/24 02:04 05:08 07:39 POC Whole Bld Glucose 174 H D 184 H 222 H Magnesium PFSH Social History household members: none Smoking Status: Former smoker alcohol intake: current Discharge Plan Discharge Plan Patient Disposition: Home Provider Discharge Comment: Follow up with your SANITATION ASSOCIATE PCP at [facility] soon Discharge orders & Medications Prescriptions: New furosemide 20 mg Tablet 20 mg PO DAILY Qty: 30 0RF Continued levothyroxine 75 mcg tablet 75 mcg PO DAILY magnesium oxide 400 mg (241.3 mg magnesium) tablet 400 mg PO BID pantoprazole 40 mg tablet,delayed release (DR/EC) 40 mg PO DAILY ferrous sulfate [FeroSul] 325 mg (65 mg iron) tablet 325 mg PO DAILY Patient Comments: [NO ORIGINAL SIG] gabapentin 100 mg capsule 100 mg PO DAILY gzrbxhpb-awz-hbri fum-folic ac 7.5 mg iron-400 mcg tablet 1 tab PO DAILY chlorthalidone 25 mg tablet 12.5 mg PO .COMPLEX Rx Instructions: 12.5 mg orally every other day hold for <110/60; citalopram 20 mg tablet 20 mg PO DAILY Jardiance 25 mg tablet 25 mg PO DAILY atorvastatin 40 mg tablet 40 mg PO DAILY Eliquis 5 mg tablet 2.5 mg PO BID ascorbic acid (vitamin C) 250 mg tablet 250 mg PO .COMPLEX Rx Instructions: 250 mg orally once a day every every 2 days; diltiazem HCl 120 mg capsule,extended release 24hr 120 mg PO DAILY insulin glargine-yfgn 100 unit/mL (3 mL) insulin pen 18 unit SUBCUT BID Patient Comments: [NO ORIGINAL SIG] acetaminophen 325 mg capsule 650 mg PO .[id number] Follow up/Referrals: Jose Stuart MD [Primary Care Provider, Internal Medicine] Diet/Activity/Treatments Diet: Regular Other treatments: Referral for PT at home Visit Report/Discharge Packet Instructions: DI for Dizziness-Nonvertigo Stand Alone Forms: Patient Portal/API, Stroke Signs & Symptoms Discharge Data Primary Care Provider: Jose Stuart Attending Provider: George Avila Admit Date/Time: 12/04/24 15:28 Quality VTE Deep Vein Thrombosis/Pulmonary Embolism Present on Admission: No
[2024-12-07 12:00] VITALS: BP 111/52; PULSE 90; RESP 15; TEMP 35.9; O2SAT 98
--- NOTE | 2024-12-07 12:22 | PT.IPTN ---
Physical Therapy Treatment Note M2 PT-IP Current Condition Start: 12/05/24 15:22 Freq: NEEDED Status: Active Protocol: Document 12/05/24 14:15 AB (Rec: 12/05/24 15:38 AB [id number]) Physical Therapy Current Condition Current Condition Evaluation Date 12/05/24 Treatment Diagnosis heart failure; pulmonary edema; difficulty in walking Onset Date 12/04/24 M3 PT-IP Subjective Start: 12/05/24 15:22 Freq: NEEDED Status: Active Protocol: Document 12/07/24 11:22 MB (Rec: 12/07/24 12:22 MB Desktop) Subjective Physical Therapy Visit Type Type Treatment Note Visit Start Time 11:22 Visit Stop Time 11:45 Number of SINGE MACHINE OPERATOR Visits 0 Physical Therapy Visit Comments Patient Comments Pt sitting up in chair upon arrival and states that she did not feel dizzy getting up this morning. She is getting IV fluid and magnesium on PT arrival. Therapy Pain Assessment Pain When Pain Assessed At Rest Pain Present Pain Present Denied Pain M4 PT-IP Mobility and Gait Start: 12/05/24 15:22 Freq: NEEDED Status: Active Protocol: Document 12/07/24 11:22 MB (Rec: 12/07/24 12:22 MB Desktop) PT-Bed Mobility Assessment Supine to Sit Supine to Sit Independent Sit to Supine Sit to Supine Independent Scooting Scooting to Edge of Standby Assistance Bed PT-Transfer Assessment Sit to and From Stand Sit to and from Contact Guard Assistance,1 Person Assistance,Use of Stand Upper Extremities Equipment Transfer Assistive Gait Belt,Front Wheeled Walker Device Comments Mobility Comments Orthostatic assessment with BP and HR in RUE: supine 137/68, 92; standing 105/45, 105; standing 1' 120/58, 102. Pt reports dizziness with getting up that resolves quickly. Gait Assessment Gait Gait Assistance Standby Assistance Required: Distance (Feet) 100 Assistive Devices Assistive Device Gait Belt,Front Wheeled Walker Gait Deviations General Gait Pattern Decreased Stride Length,Decreased Feet Clearance Factors Limiting Gait Function Factors Limiting Decreased Activity Tolerance,Poor Balance Gait Function Comments Gait Comments A few steps from the chair to the bed with CGA, support about waist and light COMMERCIAL LINES ASSISTANT and then SBA to superv with RW for gait in room and hallway 100' and then 20'x2 in room, pt requires superv assistance for toileting PT-Balance Assessment Sitting Balance and Reactions Static Sitting Normal Balance Ability Dynamic Sitting Good Balance Ability Standing Balance and Reactions Static Standing Good Balance Ability Dynamic Standing Good Balance Ability Device Used FWW M5 PT-IP Objective Assessments Start: 12/05/24 15:22 Freq: NEEDED Status: Active Protocol: Document 12/05/24 14:15 AB (Rec: 12/05/24 15:38 AB [id number]) Orientation Orientation/Cognition Level of Alertness Alert Orientation Name,Place,Situation Language Function No Deficits Noted Ability Safety Awareness Decreased Safety Awareness Memory Description No Deficits Noted Gross Range of Motion Lower Extremity ROM Assessment Within Functional Limits Strength Lower Extremity Strength Hip 4-/5 Knee 4-/5 Sensation Assessment Sensation Gross Sensation Right LE Impaired,Left LE Impaired Sensation Numbness Description Comments Sensation Comments B feet neuropathies per pt Muscle Tone Muscle Tone WNL Yes M6 PT-IP Treatment Start: 12/05/24 15:22 Freq: NEEDED Status: Active Protocol: Document 12/07/24 11:22 MB (Rec: 12/07/24 12:22 MB Desktop) Physical Therapy Treatment Education Education Provided Safety M7 PT-IP Assessment and Plan Start: 12/05/24 15:22 Freq: NEEDED Status: Active Protocol: Document 12/07/24 11:22 MB (Rec: 12/07/24 12:22 MB Desktop) PT Summary Assessment and Plan Potential Rehabilitation Good Potential Status of Condition Unstable at Evaluation Summary Impairments Balance,Transfers,Gait Assessment Summary Pt progresses with mobility. She con't with orthostatic hyotension in setting of heart failure and reports that she is not ambulating as much as she should at [facility]. She declines SNF placement. Recommend PT consult at LONG TERM, ongoing monitoring of BP with positional changes, fluid intake observance, increased activity at [facility]. Goals Bed Mobility Goal Independent Transfer Goal Independent,Front Wheeled Walker Gait Goal Independent,Front Wheel Walker Gait Distance 150 Other Goals improve transfers and ambulation without AD ~ 100 ft SBA Days to Meet Goals 2 Frequency of Treatment Frequency Of Once a Day Treatment Treatment Plan Physical Therapy Bed Mobility Training,Transfer Training,Gait Training, Treatment Plan Therapeutic Exercise,Balance Retraining,Discharge Planning,Hot or Cold Pack,Neuromuscular Re-ed, Coordination Retraining Precautions Other Precautions fall risk, orthostatic hypotension Recommendations To Nursing Amount of Assist 1 Person Assist Needed Discharge Recommendations PT Discharge Home with 25/12 Assist Available,Home Health Recommendations Other Discharge LONG TERM with HHPT consult Recommendations Transportation Needs Private Vehicle at Discharge - PT assist x1
--- NOTE | 2024-12-07 15:22 | CM.DPNOTE ---
DC Note Patient has been discharged; does not need SNF, okay to return to [facility]. Patient eager to return to [facility]. [facility] at SNF updated. Placed call to [facility] this morning and they are able to pick patient up at 3pm. Signed med list okay to come with patient. Nothing else needed for return home to [facility]. ROXIE
--- NOTE | 2024-12-09 15:35 | CM.DPNOTE ---
DCP note received notice from [facility] did not receive orders/dc summary at [facility]. MANUFACTURING SUPPORT ENGINEER emailed information to intake team Will continue to follow as needed TAI Jones
== END 2024-12-07 15:55 | DRG 291 ==
LOC: ED 15:22 → AC 16:57
PROVIDERS: Admitting Provider Hospitalist; Emergency Provider Emergency Medicine; PCP Internal Medicine; Referring Provider Emergency Medicine; Visit Provider Hospitalist
DX: I11.0 Hypertensive heart disease with heart failure (principal); I50.23 Acute on chronic systolic (congestive) heart failure; E11.9 Type 2 diabetes mellitus without complications; I95.1 Orthostatic hypotension; R42 Dizziness and giddiness; E03.9 Hypothyroidism, unspecified; I48.91 Unspecified atrial fibrillation; E78.5 Hyperlipidemia, unspecified; W18.30XA Fall on same level, unspecified, initial encounter; Z87.891 Personal history of nicotine dependence; Z86.711 Personal history of pulmonary embolism; Z79.84 Long term (current) use of oral hypoglycemic drugs; Z79.4 Long term (current) use of insulin; Z86.73 Personal history of transient ischemic attack (TIA), and cerebral infarction without residual deficits; Z79.01 Long term (current) use of anticoagulants; Z79.890 Hormone replacement therapy
CPT/HCPCS: 36415; 70450; 71045; 71275; 72125; 74177; 80048; 80053; 81001; 82550; 82962; 83690; 83735; 83880; 84484; 85025; 85610; 85730; 93005; 93010; 93306; 96361; 96374; 97116; 97162; 97530; 99285; G0378; J1815; J1938; J3475; Q9967

== ENCOUNTER → 2025-02-11 06:15 | Outpatient (ROUT) | payer OTHER, MEDICAID, SELFPAY ==
[2024-12-04 16:59] VITALS: BMI 24.7
[2025-02-11 08:08] LABS: Hematocrit 34.4 % (36-46); Hemoglobin 11.7 g/dL (12.0-16.0); Mean Corpuscular HGB Conc 34.0 % (30-36); Mean Corpuscular Hemoglobin 30.4 PG (26-34); Mean Corpuscular Volume 89.3 fL (80-100); Platelet Count 169 X10^3/uL (150-400)
[2025-02-11 08:19] LABS: HEMOLYSIS < 15 (0-50); Hemoglobin A1C% w Est Avg Glu 7.5 % (4.0-6.0); Iron 65 ug/dL (37-170)
[2025-02-11 08:20] LABS: Blood Urea Nitrogen 29 mg/dL (7-17); Calcium 9.6 mg/dL (8.4-10.2); Carbon Dioxide 31 mmol/L (22-32); Chloride 96 mmol/L (98-107); Cholesterol 152 mg/dL (140-199); Estimated Glomerular Filt Rate 39 mL/min (>60); Glucose 154 mg/dL (70-99); HDL Cholesterol 42 mg/dL (40-60); HEMOLYSIS < 15 (0-50); Magnesium 1.6 mg/dL (1.6-2.3); Potassium 3.6 mmol/L (3.4-5.1); Sodium 137 mmol/L (137-145); Triglycerides 225 mg/dL (35-150)
[2025-02-11 08:30] LABS: Percent Iron Saturation 22 % (15-50); Total Iron Binding Capacity 300 ug/dL (265-497); Transferrin 251 mg/dL (206-381)
[2025-02-11 09:25] LABS: Folate > 20.0 ng/mL (2.76-20.0); Vitamin B12 541 pg/mL (239-931)
== END ==
PROVIDERS: PCP Internal Medicine; Visit Provider Registered Nurse
DX: I48.20 Chronic atrial fibrillation, unspecified (principal); I11.0 Hypertensive heart disease with heart failure; E11.649 Type 2 diabetes mellitus with hypoglycemia without coma; N18.32 Chronic kidney disease, stage 3b; E78.5 Hyperlipidemia, unspecified; D64.9 Anemia, unspecified
CPT/HCPCS: 36415; 80048; 80061; 82607; 82746; 83036; 83540; 83550; 83735; 85027

== ENCOUNTER 2025-02-26 08:31 | Emergency (ER) | payer OTHER, MEDICAID, SELFPAY ==
[2024-12-04 16:59] VITALS: BMI 24.7
[2025-02-26] VITALS (30 sets, daily range): BP systolic 83–117; BP diastolic 50–66; PULSE 99–177; RESP 13–23; TEMP 37.4; O2SAT 91–99; BMI 24.3
--- NOTE | 2025-02-26 08:41 | DI.RAD.S_ITS ---
PROCEDURE: XR CHEST 1V INDICATIONS: chest pain TECHNIQUE: One view of the chest was acquired. COMPARISON: [facility], CR, XR CHEST 1V, 12/04/2024, 8:12. FINDINGS: Surgical changes and devices: None. Lungs and pleura: Very mild interstitial pulmonary edema. No pleural effusions or pneumothorax. Mediastinum: Mediastinal contours appear normal. Heart size is borderline enlarged. Bones and chest wall: No suspicious bony lesions. Overlying soft tissues appear unremarkable. IMPRESSION: Very mild interstitial pulmonary edema. Dictated by: Velasquez Weeks M.D. on 02/26/2025 at 9:18 Approved by: Velasquez Weeks M.D. on 02/26/2025 at 9:18
--- NOTE | 2025-02-26 08:44 | EKG_ITS ---
[address] [address] Test Date: 2025-02-26 Pat Name: Francine Godinez Department: Room: Gender: Female Final Inspector Movement Assembly: GAYLA : 1940 Requested By: Order Number: [id number] Reading MD: Roland Jones MD Measurements Intervals [place] Rate: 151 P: 68 SC: QRS: 102 QRSD: 78 T: -75 QT: 300 QTc: 475 Interpretive Statements Critical Test Result: High HR Atrial flutter with variable AV block Rightward axis Nonspecific ST and T wave abnormality Electronically Signed On 02-26-2025 11:46:03 PDT by Roland Jones MD
--- NOTE | 2025-02-26 08:46 | ED.ARRPALP ---
HPI - Arrhythmia/Palpitations General Chief Complaint: Arrhythmia/Palpitations Stated Complaint: weakness Time Seen by Provider: 02/26/25 08:39 Source: patient and EMS Mode of arrival: EMS History of Present Illness HPI narrative: Patient brought in by ambulance from [facility] for feeling tired and fatigued. Patient has history of atrial fibrillation. Patient states she is on Eliquis. Has not missed any dose of it. A flutter seen on EKG. Reviewed with patient risks and benefits and written consent for procedural sedation and cardioversion. She agrees with this. Related Data Home Medications ?Medication ?Instructions ?Recorded ?Confirmed acetaminophen 325 mg capsule 650 mg PO .q6hprn pain 12/04/24 12/04/24 apixaban 5 mg tablet (Eliquis) 2.5 mg PO BID 12/04/24 12/04/24 ascorbic acid (vitamin C) 250 mg 250 mg PO .COMPLEX 12/04/24 12/04/24 tablet atorvastatin 40 mg tablet 40 mg PO DAILY 12/04/24 12/04/24 chlorthalidone 25 mg tablet 12.5 mg PO .COMPLEX 12/04/24 12/04/24 citalopram 20 mg tablet 20 mg PO DAILY 12/04/24 12/04/24 diltiazem HCl 120 mg 120 mg PO DAILY 12/04/24 12/04/24 capsule,extended release 24 hr empagliflozin 25 mg tablet 25 mg PO DAILY 12/04/24 12/04/24 (Jardiance) ferrous sulfate 325 mg (65 mg 325 mg PO DAILY 12/04/24 12/04/24 iron) tablet (FeroSul) gabapentin 100 mg capsule 100 mg PO DAILY 12/04/24 12/04/24 insulin glargine-yfgn 100 unit/mL 18 unit SUBCUT BID 12/04/24 12/04/24 (3 mL) subcutaneous pen levothyroxine 75 mcg tablet 75 mcg PO DAILY 12/04/24 12/04/24 magnesium oxide 400 mg (241.3 mg 400 mg PO BID 12/04/24 12/04/24 magnesium) tablet bylimrtknfbn-jqgcyzic-rorn 1 tab PO DAILY 12/04/24 12/04/24 fumarate 7.5 mg-folic acid 400 mcg tablet pantoprazole 40 mg tablet,delayed 40 mg PO DAILY 12/04/24 12/04/24 release Previous Rx's ?Medication ?Instructions ?Recorded furosemide 20 mg tablet 20 mg PO DAILY #30 tabs 12/07/24 Allergies Allergy/AdvReac Type Severity Reaction Status Date / Time No Known Drug Allergies Allergy Verified 02/26/25 08:36 Review of Systems Review of Systems Narrative: GENERAL: Positive chills, fatigue, malaise, negative fever, sweats. HEENT: Negative sinus pain, ear pain, sore throat RESPIRATORY: Negative dyspnea, positive cough CARDIOVASCULAR: Negative chest pain, palpitations GASTROINTESTINAL: Negative vomiting, nausea, abdominal pain : Negative dysuria, frequency, hematuria MUSCULOSKELETAL: Negative muscle or bony pain SKIN: Negative rash, skin lesions NEUROLOGIC: Negative weakness, numbness ROS Unobtainable: All systems reviewed & are unremarkable except as noted in HPI and below Patient History Social History household members: none alcohol intake: current Exam Narrative Exam Narrative: GENERAL: in no distress, not toxic not dyspneic HEAD: Normocephalic. EYES: Pupils equal round ENT: Mucous membranes moist. NECK: Trachea midline. CARDIOVASCULAR: Tachycardia with Regular rate and rhythm RESPIRATORY: Clear to auscultation. Breath sounds equal bilaterally. No wheezes, rales, or rhonchi. GASTROINTESTINAL: Abdomen soft, non-tender EXTREMITIES: No gross deformities. BACK: No flank tenderness. NEURO: AOx4. Clear speech SKIN: Warm and dry PSYCH: Not anxious, is cooperative Initial Vital Signs Initial Vital Signs: Vital Signs Temperature 99.3 F 02/26/25 08:29 Pulse Rate 166 H 02/26/25 08:29 Respiratory Rate 18 02/26/25 08:29 Blood Pressure 92/61 02/26/25 08:29 Pulse Oximetry 94 02/26/25 08:29 Oxygen Delivery Method Room Air 02/26/25 08:29 Procedures Cardioversion Time of Cardioversion: 09:49 Consent Signed: Yes Indication: Atrial flutter Stability: Stable Number of attempts (shocks): 1 Joules used: 150 Cardiac rhythm post-cardioversion: Sinus tachycardia Procedural Sedation Time of procedure: 09:48 Consent signed: Yes Time out performed: Yes Indication: cardioversion ASA Class: I Mallampati Airway Classification: Class I Time of Last PO Intake: 18:00 Preparation: teletypesetter monitor applied, pulse oximeter, capnometry used, supplemental O2 applied, reversal agents at bedside, suction/airway equipment at bedside and IV secured IV Propofol dose (mg): 40 Intraservice time/total sedation time (min): 10 ED Sedation Level: Moderate (Concious) Patient Tolerated Procedure: Well and No complications Course Orders Ordered: Discontinued Medications Sodium Chloride (Normal Saline 0.9%) 500 mls @ 1,000 mls/hr IV BOLUS ONE Stop: 02/26/25 10:04 Last Infusion: 02/26/25 11:04 Dose: Infused Documented By: Admin: 02/26/25 09:41 Dose: 1,000 mls/hr Documented By: STACY Propofol (Propofol 200 Mg/20 Ml Vial) 80 mg IV NOW ONE Stop: 02/26/25 09:36 Last Admin: 02/26/25 09:48 Dose: 40 mg Documented By: STACY Vital Signs Vital signs: Vital Signs - 8 hr 02/26/25 08:29 02/26/25 08:39 02/26/25 09:00 Temperature 99.3 F Pulse Rate 166 H 154 H 173 H Respiratory Rate 18 16 Blood Pressure 92/61 Pulse Oximetry 94 92 95 Oxygen Delivery Method Room Air Oxygen Flow Rate 02/26/25 09:18 02/26/25 09:30 02/26/25 09:39 Temperature Pulse Rate 175 H 171 H 177 H Respiratory Rate 17 16 16 Blood Pressure 92/50 L 83/60 L Pulse Oximetry 95 91 96 Oxygen Delivery Method Oxygen Flow Rate 02/26/25 09:39 02/26/25 09:40 02/26/25 09:40 Temperature Pulse Rate 177 H Respiratory Rate 17 Blood Pressure 85/62 L 87/58 L Pulse Oximetry 97 Oxygen Delivery Method Oxygen Flow Rate 02/26/25 09:45 02/26/25 09:45 02/26/25 09:46 Temperature Pulse Rate 176 H 175 H Respiratory Rate 22 16 Blood Pressure 90/57 L Pulse Oximetry 98 98 Oxygen Delivery Method Oxygen Flow Rate 2 02/26/25 09:47 02/26/25 09:48 02/26/25 09:49 Temperature Pulse Rate 176 H 174 H 172 H Respiratory Rate 13 15 13 Blood Pressure Pulse Oximetry 98 99 99 Oxygen Delivery Method Oxygen Flow Rate 2 2 2 02/26/25 09:50 02/26/25 09:51 02/26/25 09:52 Temperature Pulse Rate 106 H 104 H 106 H Respiratory Rate 18 17 16 Blood Pressure 88/60 L Pulse Oximetry 99 95 98 Oxygen Delivery Method Oxygen Flow Rate 2 2 02/26/25 09:53 02/26/25 09:54 02/26/25 09:55 Temperature Pulse Rate 104 H 105 H 103 H Respiratory Rate 20 14 15 Blood Pressure Pulse Oximetry 97 93 95 Oxygen Delivery Method Oxygen Flow Rate 2 2 2 02/26/25 09:56 02/26/25 09:57 02/26/25 09:58 Temperature Pulse Rate 102 H 101 H 101 H Respiratory Rate 13 14 15 Blood Pressure 112/60 Pulse Oximetry 96 97 97 Oxygen Delivery Method Oxygen Flow Rate 2 2 02/26/25 09:59 02/26/25 10:00 02/26/25 10:01 Temperature Pulse Rate 100 H 99 H 102 H Respiratory Rate 23 14 14 Blood Pressure 117/64 Pulse Oximetry 96 97 99 Oxygen Delivery Method Oxygen Flow Rate 02/26/25 10:05 02/26/25 10:05 02/26/25 10:10 Temperature Pulse Rate 100 H Respiratory Rate 20 Blood Pressure 115/66 102/59 L Pulse Oximetry 92 Oxygen Delivery Method Oxygen Flow Rate 02/26/25 10:10 02/26/25 10:20 02/26/25 10:20 Temperature Pulse Rate 100 H 100 H Respiratory Rate 16 16 Blood Pressure 100/59 L Pulse Oximetry 95 96 Oxygen Delivery Method Oxygen Flow Rate 02/26/25 10:29 02/26/25 10:30 Temperature Pulse Rate 100 H Respiratory Rate 14 Blood Pressure 104/59 L Pulse Oximetry 95 Oxygen Delivery Method Oxygen Flow Rate MDM - Arrhythmia/Palpitations Lab Data 02/26/25 08:57 02/26/25 08:57 Labs: Lab Results 02/26/25 02/26/25 Range/Units 08:57 09:18 WBC 8.0 (4.5-11.0) X10^3/uL RBC 3.74 L (4.0-5.2) X10^6/uL Hgb 11.4 L (12.0-16.0) g/dL Hct 33.6 L (36-46) % MCV 89.7 (80-100) fL MCH 30.5 (26-34) PG MCHC 34.0 (30-36) % RDW 15.0 H (11.6-14.8) % Plt Count 201 (150-400) X10^3/uL Neut % (Auto) 77.4 H (50-75) % Lymph % (Auto) 11.1 L (25-40) % [place] % (Auto) 7.7 (3-14) % Eos % (Auto) 2.6 (2-4) % Baso % (Auto) 1.2 (0-2) % Neut # (Auto) 6200 (4136-8614) /uL Lymph # (Auto) 900 L (2065-9577) /uL [place] # (Auto) 600 (0-900) /uL Eos # (Auto) 200 (0-450) /uL Baso # (Auto) 100 (0-100) /uL PT 16.0 H (9.4-12.5) SECONDS INR 1.4 H (0.9-1.3) APTT 32 (25.1-36.5) SECONDS Sodium 135 L (137-145) mmol/L Potassium 3.8 (3.4-5.1) mmol/L Chloride 95 L (98-107) mmol/L Carbon Dioxide 27 (22-32) mmol/L BUN 48 H (7-17) mg/dL Creatinine 1.89 H (0.52-1.04) mg/dL Estimated GFR 26 L (>60) mL/min BUN/Creatinine Ratio 25.4 H (6-22) Glucose 161 H (70-99) mg/dL Calcium 9.4 (8.4-10.2) mg/dL Total Bilirubin 0.7 (0.2-1.3) mg/dL AST 27 (14-36) IU/L ALT 23 (<35) IU/L Alkaline Phosphatase 56 (38-126) U/L Total Creatine Kinase 35 (30-135) U/L Troponin I 0.027 (0.01-0.034) ng/mL NT-Pro-B Natriuret Pep 41692 H (<450) pg/mL Total Protein 7.4 (6.3-8.2) g/dL Albumin 4.3 (3.5-5.0) g/dL Globulin 3.1 (1.7-4.1) g/dL Albumin/Globulin Ratio 1.4 (1.0-2.8) SARS-CoV-2 (PCR) Negative (Negative) Influenza A (RT-PCR) Flu a negative (NEGATIVE) Influenza B (RT-PCR) Flu b negative (NEGATIVE) RSV (PCR) Negative (Negative) Point of Care Testing Test Results Not applicable MDM Narrative Medical decision making narrative: Patient brought in by ambulance from [facility] for feeling tired and fatigued. Patient has history of atrial fibrillation. Patient states she is on Eliquis. Has not missed any dose of it. A flutter seen on EKG. Reviewed with patient risks and benefits and written consent for procedural sedation and cardioversion. She agrees with this MDM After history and exam, CBC CMP troponin PT INR PTT chest x-ray written consent for procedural sedation and cardioversion Differential considered: Includes but not limited to atrial fibrillation atrial flutter viral upper respiratory infection Medical records reviewed: No recent visit for this complaint Lab Test results independently reviewed as above. Pertinent findings: WBC 8.0 hemoglobin 11.4 INR 1.4 sodium 135 potassium 3.8 BUN 48 creatinine 1.89 GFR 26 renal function appears at baseline. Glucose 161 troponin 0.027 BNP 66727, nonspecific, patient not in fluid overload clinically Independently reviewed EKG atrial flutter rate 151 Repeat EKG after cardioversion sinus tachycardia rate 105 Imaging studies independently reviewed: Chest x-ray Consultations: None indicated at this time Re-evaluations: 10:06 a.m.. Patient is awake alert oriented x4. Back at baseline after procedural sedation and cardioversion. Patient feels much better heart rate 100. Blood pressure 117 systolic. Discussion: Appropriate for discharge home. Exam is reassuring. At time of discharge patient at baseline. Heart rate 95 sinus rhythm. Blood pressure has improved. Return precautions reviewed and she desires discharge home. Not requiring supplemental oxygen. No altered mental status. Diagnosis: Atrial flutter Critical Care Time Critical Care Time Attestation: Critical Care Time 35 minutes: Critical care time is separate from other billable procedures. This critical care time includes consultation with family and other consulting doctors, review of records, and interpretation of data from labs, EKGs, imaging, etc. Discharge Plan Departure Patient Disposition: Home Clinical Impression: Atrial flutter Qualifiers: Atrial flutter type: typical Qualified Code(s): I48.3 - Typical atrial flutter Instructions: DI for Atrial Flutter, DI for Moderate Sedation Activity Restrictions/Additional Instructions: I am glad you are feeling better. You were sedated today for cardioversion back into sinus rhythm. Continue home medications. See family doctor and electronics teacher within a week for re-evaluation. Return if worse if any questions or concerns. Your laboratory studies are reassuring today. Prescriptions: No Action levothyroxine 75 mcg tablet 75 mcg PO DAILY magnesium oxide 400 mg (241.3 mg magnesium) tablet 400 mg PO BID pantoprazole 40 mg tablet,delayed release (DR/EC) 40 mg PO DAILY ferrous sulfate [FeroSul] 325 mg (65 mg iron) tablet 325 mg PO DAILY Patient Comments: [NO ORIGINAL SIG] gabapentin 100 mg capsule 100 mg PO DAILY qrvavwcl-szh-pqse fum-folic ac 7.5 mg iron-400 mcg tablet 1 tab PO DAILY chlorthalidone 25 mg tablet 12.5 mg PO .COMPLEX Rx Instructions: 12.5 mg orally every other day hold for <110/60; citalopram 20 mg tablet 20 mg PO DAILY Jardiance 25 mg tablet 25 mg PO DAILY atorvastatin 40 mg tablet 40 mg PO DAILY Eliquis 5 mg tablet 2.5 mg PO BID ascorbic acid (vitamin C) 250 mg tablet 250 mg PO .COMPLEX Rx Instructions: 250 mg orally once a day every every 2 days; diltiazem HCl 120 mg capsule,extended release 24hr 120 mg PO DAILY insulin glargine-yfgn 100 unit/mL (3 mL) insulin pen 18 unit SUBCUT BID Patient Comments: [NO ORIGINAL SIG] acetaminophen 325 mg capsule 650 mg PO .q6hprn furosemide 20 mg Tablet 20 mg PO DAILY Qty: 30 0RF Referrals: Jose Stuart MD [Primary Care Provider, Internal Medicine] Stand Alone Forms: Patient Portal/API
[2025-02-26 09:03] LABS: Add Manual Diff / Slide Review NO; Hematocrit 33.6 % (36-46); Hemoglobin 11.4 g/dL (12.0-16.0); Lymphocytes Absolute Auto 900 /uL (1100-4500); Mean Corpuscular HGB Conc 34.0 % (30-36); Mean Corpuscular Hemoglobin 30.5 PG (26-34); Mean Corpuscular Volume 89.7 fL (80-100); Platelet Count 201 X10^3/uL (150-400)
[2025-02-26 09:10] LABS: INR 1.4 (0.9-1.3); Prothrombin Time 16.0 SECONDS (9.4-12.5)
[2025-02-26 09:13] LABS: PTT Partial Thromboplastin Tim 32 SECONDS (25.1-36.5)
[2025-02-26 09:23] LABS: Alanine Aminotransferase 23 IU/L (<35); Albumin 4.3 g/dL (3.5-5.0); Albumin Globulin Ratio 1.4 (1.0-2.8); Alkaline Phosphatase 56 U/L (38-126); Blood Urea Nitrogen 48 mg/dL (7-17); Calcium 9.4 mg/dL (8.4-10.2); Carbon Dioxide 27 mmol/L (22-32); Chloride 95 mmol/L (98-107); Creatine Kinase 35 U/L (30-135); Estimated Glomerular Filt Rate 26 mL/min (>60); Globulin 3.1 g/dL (1.7-4.1); Glucose 161 mg/dL (70-99); HEMOLYSIS < 15 (0-50); Potassium 3.8 mmol/L (3.4-5.1); Sodium 135 mmol/L (137-145); Total Protein 7.4 g/dL (6.3-8.2)
[2025-02-26 09:33] LABS: NT-proBNP (BNP-Adult 18+) 11100 pg/mL (<450)
[2025-02-26 09:35] LABS: Troponin I 0.027 ng/mL (0.01-0.034)
[2025-02-26] MEDS: SODIUM CHLORIDE 0.9% 500 ML 1000 ML IV (09:41)
--- NOTE | 2025-02-26 09:54 | EKG_ITS ---
[address] [address] Test Date: 2025-02-26 Pat Name: Francine Godinez Department: Room: Gender: Female [employer] Teacher: OLAYINKA VASQUEZ : 1940 Requested By: Order Number: [id number] Reading MD: Roland Jones MD Measurements Intervals [place] Rate: 105 P: 82 [place]: 172 QRS: 96 QRSD: 80 T: 38 QT: 348 QTc: 459 Interpretive Statements Sinus tachycardia Rightward axis Electronically Signed On 02-26-2025 11:46:13 PDT by Roland Jones MD
[2025-02-26 10:08] LABS: Influenza A - CEPHEID Flu A NEGATIVE (NEGATIVE); Influenza B - CEPHEID Flu B NEGATIVE (NEGATIVE)
[2025-02-26 10:17] LABS: COVID-19 CEPHEID 4-PLEX PCR Negative (Negative)
== END 2025-02-26 11:39 | disposition home or self-care (01) ==
PROVIDERS: Emergency Provider Emergency Medicine; PCP Internal Medicine
DX: I48.3 Typical atrial flutter (principal); Z79.01 Long term (current) use of anticoagulants
CPT/HCPCS: 36415; 71045; 80053; 82550; 83880; 84484; 85025; 85610; 85730; 87637; 92960; 93005; 93010; 96360; 99152; 99285; 99291; J2704

== ENCOUNTER 2025-03-20 08:58 | Emergency (ER) | payer OTHER, MEDICAID, SELFPAY ==
[2024-12-04 16:59] VITALS: BMI 24.7
[2025-03-20] VITALS (10 sets, daily range): BP systolic 98–109; BP diastolic 52–57; PULSE 93–117; RESP 14–18; TEMP 37.4; O2SAT 87–96; BMI 26.9
--- NOTE | 2025-03-20 09:04 | EKG_ITS ---
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
--- NOTE | 2025-03-20 09:05 | ED.CHESTPAIN ---
HPI - Chest Pain General Chief Complaint: Chest Pain Stated Complaint: Chest discomfort Time Seen by Provider: 03/20/25 09:04 Source: EMS Mode of arrival: EMS History of Present Illness HPI narrative: Patient is a 84-year-old female history of atrial fibrillation on Eliquis presents today with what EMS reports is SVT. She lives at [facility] and they noted that her heart rate was too fast to count EMS found it at about 170 in her blood pressure was quite low. She was given 12 mg of adenosine and then another 12 mg and she converted and now is in sinus rhythm. With a blood pressure systolic of 120s. Patient says that she could feel her heart beating fast yesterday and definitely could feel it this morning. No significant chest pain shortness of breath. Overall feeling better. Related Data Home Medications ?Medication ?Instructions ?Recorded ?Confirmed acetaminophen 325 mg capsule 650 mg PO .q6hprn pain 12/04/24 03/21/25 apixaban 5 mg tablet (Eliquis) 2.5 mg PO BID 12/04/24 03/21/25 ascorbic acid (vitamin C) 250 mg 250 mg PO .COMPLEX 12/04/24 03/21/25 tablet atorvastatin 40 mg tablet 40 mg PO .HS 12/04/24 03/21/25 chlorthalidone 25 mg tablet 12.5 mg PO .COMPLEX 12/04/24 03/21/25 citalopram 20 mg tablet 20 mg PO DAILY 12/04/24 03/21/25 diltiazem HCl 120 mg 120 mg PO DAILY 12/04/24 12/04/24 capsule,extended release 24 hr empagliflozin 25 mg tablet 25 mg PO DAILY 12/04/24 12/04/24 (Jardiance) ferrous sulfate 325 mg (65 mg 325 mg PO DAILY 12/04/24 03/21/25 iron) tablet (FeroSul) gabapentin 100 mg capsule 300 mg PO .HS 12/04/24 03/21/25 insulin glargine-yfgn 100 unit/mL 18 unit SUBCUT BID 12/04/24 03/21/25 (3 mL) subcutaneous pen levothyroxine 75 mcg tablet 75 mcg PO DAILY 12/04/24 03/21/25 magnesium oxide 400 mg (241.3 mg 400 mg PO BID 12/04/24 03/21/25 magnesium) tablet [id number]-[id number]-qfwa 1 tab PO DAILY 12/04/24 03/21/25 fumarate 7.5 mg-folic acid 400 mcg tablet pantoprazole 40 mg tablet,delayed 40 mg PO DAILY 12/04/24 03/21/25 release cetirizine 10 mg tablet 10 mg PO DAILY 03/21/25 03/21/25 ezetimibe 10 mg tablet 10 mg PO .HS 03/21/25 03/21/25 metformin 500 mg tablet 500 mg PO BID 03/21/25 03/21/25 metoprolol tartrate 25 mg tablet 12.5 mg PO BID 03/21/25 03/21/25 potassium chloride 20 mEq 20 meq PO DAILY 03/21/25 03/21/25 tablet,extended release(part/cryst) Previous Rx's ?Medication ?Instructions ?Recorded furosemide 20 mg tablet 20 mg PO DAILY #30 tabs 12/07/24 Allergies Allergy/AdvReac Type Severity Reaction Status Date / Time No Known Drug Allergies Allergy Verified 03/20/25 08:59 Patient History Medical History Depression Acid reflux Diabetes Hypertension Hyperlipidemia Paroxysmal atrial fibrillation Social History household members: none Smoking Status: Former smoker alcohol intake: current Exam Initial Vital Signs Initial Vital Signs: Vital Signs Temperature 99.3 F 03/20/25 08:58 Pulse Rate 108 H 03/20/25 08:58 Respiratory Rate 18 03/20/25 08:58 Blood Pressure 104/55 L 03/20/25 08:58 Pulse Oximetry 92 03/20/25 08:58 Oxygen Delivery Method Room Air 03/20/25 08:58 GENERAL: Alert very pleasant well-appearing 84-year-old female and in no acute distress. HEENT: Head atraumatic,EOMI, pupils reactive, face symmetric, moist mucous membranes CARDIOVASCULAR: Regular rate and rhythm without murmurs, rubs or gallops. RESPIRATORY: Breath sounds equal bilaterally, no wheezes rales or rhonchi. ABDOMEN: Soft, nontender. Normoactive bowel sounds all 4 quadrants. No guarding or rebound. EXTREMITIES: Normal range of motion, no clubbing or edema. Neurovascularly intact NEUROLOGICAL: Alert and oriented x4.Normal gait and speech. Cranial nerves II through XII grossly intact. SKIN: Warm, dry, no laceration, no petechiae, no rashes or lesions. Course Orders Ordered: Discontinued Medications Furosemide (Furosemide 40 Mg/4 Ml Vial) 20 mg IV NOW ONE Stop: 03/20/25 10:22 Last Admin: 03/20/25 10:26 Dose: 20 mg Documented By: BORIS Vital Signs Vital signs: Vital Signs - 8 hr 03/20/25 08:58 03/20/25 09:05 03/20/25 09:30 Temperature 99.3 F Pulse Rate 108 H 109 H 102 H Respiratory Rate 18 15 15 Blood Pressure 104/55 L Pulse Oximetry 92 91 87 L Oxygen Delivery Method Room Air 03/20/25 09:30 03/20/25 10:00 03/20/25 10:00 Temperature Pulse Rate 97 H Respiratory Rate 16 Blood Pressure 106/55 L 109/57 L Pulse Oximetry 96 Oxygen Delivery Method 03/20/25 10:30 03/20/25 10:30 03/20/25 11:00 Temperature Pulse Rate 96 H 117 H Respiratory Rate 16 Blood Pressure 101/54 L Pulse Oximetry 88 L 95 Oxygen Delivery Method 03/20/25 11:02 03/20/25 11:02 03/20/25 11:30 Temperature Pulse Rate 113 H 93 H Respiratory Rate 17 14 Blood Pressure 98/52 L Pulse Oximetry 96 92 Oxygen Delivery Method 03/20/25 12:00 03/20/25 12:30 Temperature Pulse Rate 95 H 96 H Respiratory Rate 15 16 Blood Pressure Pulse Oximetry 91 93 Oxygen Delivery Method MDM - Chest Pain Lab Data 03/20/25 09:15 03/20/25 09:15 Labs: Lab Results 03/20/25 03/20/25 Range/Units 09:15 09:50 WBC 6.4 (4.5-11.0) X10^3/uL RBC 3.93 L (4.0-5.2) X10^6/uL Hgb 11.9 L (12.0-16.0) g/dL Hct 35.4 L (36-46) % MCV 90.1 (80-100) fL MCH 30.3 (26-34) PG MCHC 33.7 (30-36) % RDW 14.9 H (11.6-14.8) % Plt Count 191 (150-400) X10^3/uL Neut % (Auto) 79.4 H (50-75) % Lymph % (Auto) 9.6 L (25-40) % Ashe % (Auto) 7.1 (3-14) % Eos % (Auto) 2.2 (2-4) % Baso % (Auto) 1.7 (0-2) % Neut # (Auto) 5100 (0682-7282) /uL Lymph # (Auto) 600 L (4006-9777) /uL [place]he # (Auto) 500 (0-900) /uL Eos # (Auto) 100 (0-450) /uL Baso # (Auto) 100 (0-100) /uL Sodium 137 (137-145) mmol/L Potassium 4.0 (3.4-5.1) mmol/L Chloride 98 (98-107) mmol/L Carbon Dioxide 27 (22-32) mmol/L BUN 32 H (7-17) mg/dL Creatinine 1.64 H (0.52-1.04) mg/dL Estimated GFR 31 L (>60) mL/min BUN/Creatinine Ratio 19.5 (6-22) Glucose 245 H (70-99) mg/dL Calcium 9.5 (8.4-10.2) mg/dL Magnesium 1.6 (1.6-2.3) mg/dL Total Bilirubin 0.7 (0.2-1.3) mg/dL AST 35 (14-36) IU/L ALT 27 (<35) IU/L Alkaline Phosphatase 59 (38-126) U/L Troponin I < 0.012 (0.01-0.034) ng/mL NT-Pro-B Natriuret Pep 4350 H (<450) pg/mL Total Protein 7.5 (6.3-8.2) g/dL Albumin 4.5 (3.5-5.0) g/dL Globulin 3.0 (1.7-4.1) g/dL Albumin/Globulin Ratio 1.5 (1.0-2.8) Lipase 78 (23-300) U/L SARS-CoV-2 (PCR) Negative (Negative) Influenza A (RT-PCR) Flu a negative (NEGATIVE) Influenza B (RT-PCR) Flu b negative (NEGATIVE) RSV (PCR) Negative (Negative) Imaging Data Chest x-ray: Radiologist's Impression: PROCEDURE: XR CHEST 1V INDICATIONS: chest pain TECHNIQUE: One view of the chest was acquired. COMPARISON: [facility], CR, XR CHEST 1V, 02/26/2025, 8:38. FINDINGS: Moderate bilateral diffuse predominantly perihilar and lower lobe peribronchial thickening with patchy alveolar and interstitial opacities, more than expected for expiratory result and bronchitis, viral infection, bronchopneumonia, asthma or other process should be considered. Rarely atypical pneumonia or other less common causes could be considered. Mildly enlarged cardiopericardial silhouette. Mildly prominent tremaine, pulmonary vessels and/or hilar lymph nodes. Mild calcifications of the aortic arch. No pneumothorax, no pleural effusion, no lobar consolidation. IMPRESSION: Peribronchial thickening and patchy opacities as discussed above. Follow-up is needed. If symptoms persist or worsen, CT chest could be performed. Dictated by: Garrett Ashley M.D. on 03/20/2025 at 9:30 ECG Data Attestation: I personally reviewed and interpreted this ECG as follows: Interpretation: Sinus rhythm rate 106 WV interval 178 QRS [address] changes PVC noted MDM Narrative Medical decision making narrative: MDM CC: Heart palpitations Complicating co-morbidities: Atrial fibrillation on Eliquis Data collected from: Patient and EMS Medical records reviewed: Prior ED visits, last visit 02/26/2025 for AFib with RVR and she was cardioverted and discharged home Differential considered: SVT AFib Exam documented above, pertinent findings include: Awake alert well-appearing 84-year-old female no shortness breath regular heart rate no significant peripheral edema Lab Test results independently reviewed as above. Pertinent findings: Independently reviewed EKG as above Sinus rhythm no ischemia Imaging studies independently reviewed: Chest x-ray peribronchial thickening and patchy opacities Consultations: none Treatments: Lasix 20mg Re-evaluations: Patient O2 does drop however quickly comes off she ambulated in the ED did not require any oxygen was not short of breath Discussion: Patient is a 84-year-old female history of atrial fibrillation presenting today with heart palpitations. AMS thought she was in SVT with a heart rate of 170 she was given adenosine she converted to sinus rhythm. Blood work reviewed overall reassuring no viral illness. Chest x-ray does show some peribronchial thickening but she does not have cough fever or leukocytosis. I do not suspect pneumonia. BNP is elevated today at 4000 but it was previously 11,000. She does not appear totally fluid overloaded. However she does have some episodes of hypoxia she is given 1 dose of Lasix. May do not think she needs more. Blood pressure is soft but based on records her blood pressure sometimes is in the 90s. At this time she feels comfortable going home. Discharge Plan Departure Patient Disposition: Home Clinical Impression: Arrhythmia Instructions: DI for Arrhythmias Activity Restrictions/Additional Instructions: *You have been diagnosed with arrhythmia *What to do: At this time you had a arrhythmia which is now converted. No need to change medications *Continue to take medications as directed *Follow up with your primary care provider in 2-3 days or call [phone] *Return to ER if you should have increasing chest pain shortness of breath weakness or any new, worsening or concerning symptoms Prescriptions: No Action levothyroxine 75 mcg tablet 75 mcg PO DAILY magnesium oxide 400 mg (241.3 mg magnesium) tablet 400 mg PO BID pantoprazole 40 mg tablet,delayed release (DR/EC) 40 mg PO DAILY ferrous sulfate [FeroSul] 325 mg (65 mg iron) tablet 325 mg PO DAILY Patient Comments: [NO ORIGINAL SIG] Rx Instructions: One time a day every 2 days. gabapentin 100 mg capsule 300 mg PO .HS ivumntww-[id number] fum-folic ac 7.5 mg iron-400 mcg tablet 1 tab PO DAILY chlorthalidone 25 mg tablet 12.5 mg PO .COMPLEX Rx Instructions: 12.5 mg orally every other day hold for <110/60; citalopram 20 mg tablet 20 mg PO DAILY Jardiance 25 mg tablet 25 mg PO DAILY atorvastatin 40 mg tablet 40 mg PO .HS Patient Comments: HS Eliquis 5 mg tablet 2.5 mg PO BID ascorbic acid (vitamin C) 250 mg tablet 250 mg PO .COMPLEX Rx Instructions: 250 mg orally once a day every every 2 days; diltiazem HCl 120 mg capsule,extended release 24hr 120 mg PO DAILY insulin glargine-yfgn 100 unit/mL (3 mL) insulin pen 18 unit SUBCUT BID Patient Comments: [NO ORIGINAL SIG] acetaminophen 325 mg capsule 650 mg PO .q6hprn furosemide 20 mg Tablet 20 mg PO DAILY Qty: 30 0RF ezetimibe 10 mg tablet 10 mg PO .HS metoprolol tartrate 25 mg tablet 12.5 mg PO BID metformin 500 mg tablet 500 mg PO BID cetirizine 10 mg tablet 10 mg PO DAILY potassium chloride 20 mEq tablet,ER particles/crystals 20 meq PO DAILY Referrals: Jose Stuart MD [Primary Care Provider, Internal Medicine] Stand Alone Forms: Patient Portal/API
[2025-03-20 09:35] LABS: Add Manual Diff / Slide Review NO; Hematocrit 35.4 % (36-46); Hemoglobin 11.9 g/dL (12.0-16.0); Lymphocytes Absolute Auto 600 /uL (1100-4500); Mean Corpuscular HGB Conc 33.7 % (30-36); Mean Corpuscular Hemoglobin 30.3 PG (26-34); Mean Corpuscular Volume 90.1 fL (80-100); Platelet Count 191 X10^3/uL (150-400)
--- NOTE | 2025-03-20 09:35 | PC.NURSE ---
Pt placed on 2L NC. Dr. Mcintosh aware
[2025-03-20 09:46] LABS: Alanine Aminotransferase 27 IU/L (<35); Albumin 4.5 g/dL (3.5-5.0); Albumin Globulin Ratio 1.5 (1.0-2.8); Alkaline Phosphatase 59 U/L (38-126); Blood Urea Nitrogen 32 mg/dL (7-17); Calcium 9.5 mg/dL (8.4-10.2); Carbon Dioxide 27 mmol/L (22-32); Chloride 98 mmol/L (98-107); Estimated Glomerular Filt Rate 31 mL/min (>60); Globulin 3.0 g/dL (1.7-4.1); Glucose 245 mg/dL (70-99); HEMOLYSIS 35 (0-50); Lipase 78 U/L (23-300); Magnesium 1.6 mg/dL (1.6-2.3); Potassium 4.0 mmol/L (3.4-5.1); Sodium 137 mmol/L (137-145); Total Protein 7.5 g/dL (6.3-8.2)
[2025-03-20 09:58] LABS: NT-proBNP (BNP-Adult 18+) 4350 pg/mL (<450); Troponin I < 0.012 ng/mL (0.01-0.034)
--- NOTE | 2025-03-20 10:21 | PC.NURSE ---
pt taken off of oxygen. Provider aware
[2025-03-20] MEDS: FUROSEMIDE 40 MG/4 ML VIAL 20 MG IV (10:26)
[2025-03-20 10:44] LABS: Influenza A - CEPHEID Flu A NEGATIVE (NEGATIVE); Influenza B - CEPHEID Flu B NEGATIVE (NEGATIVE)
[2025-03-20 10:46] LABS: COVID-19 CEPHEID 4-PLEX PCR Negative (Negative)
--- NOTE | 2025-03-20 10:54 | PC.NURSE ---
pt ambulated on own to restroom with standyby assist
--- NOTE | 2025-03-20 10:55 | PC.NURSE ---
Pt passed road test. No new symptoms. Pt able to maintain O2 saturation above 91% while ambulating. Provider aware
== END 2025-03-20 13:04 | disposition home or self-care (01) ==
PROVIDERS: Emergency Provider Emergency Medicine; PCP Internal Medicine
DX: I49.9 Cardiac arrhythmia, unspecified (principal); R07.9 Chest pain, unspecified
CPT/HCPCS: 36415; 71045; 80053; 83690; 83735; 83880; 84484; 85025; 87637; 93005; 99284; J1938

== ENCOUNTER 2025-03-20 20:35 | Inpatient (IN) | payer OTHER, MEDICAID, SELFPAY ==
[2024-12-04 16:59] VITALS: BMI 24.7
[2025-03-20] VITALS (31 sets, daily range): BP systolic 77–142; BP diastolic 51–99; PULSE 120–154; RESP 12–24; TEMP 37.2; O2SAT 91–98; BMI 24.3
--- NOTE | 2025-03-20 20:45 | EKG_ITS ---
[facility] [id number] [place] [id number] Test Date: 2025-03-20 Pat Name: Francine Godinez Department: Room: Gender: Female [employer] Manager: HALLE : 1940 Requested By: Order Number: [id number] Reading MD: Roland Jones MD Measurements Intervals [place] Rate: 130 P: AK: QRS: 103 QRSD: 78 T: -75 QT: 328 QTc: 482 Interpretive Statements Atrial fibrillation with rapid ventricular response Rightward axis ST & T wave abnormality, consider inferolateral ischemia Electronically Signed On 03-21-2025 8:50:28 PDT by Roland Jones MD
--- NOTE | 2025-03-20 21:17 | ED.ARRPALP ---
HPI - Arrhythmia/Palpitations General Chief Complaint: Arrhythmia/Palpitations Stated Complaint: afib Time Seen by Provider: 03/20/25 20:38 Source: patient and EMS Mode of arrival: EMS History of Present Illness HPI narrative: 84-year-old woman with history of paroxysmal atrial fibrillation anticoagulated on Eliquis on diltiazem for rate control, history of hyperlipidemia, returns after being seeing some morning with elevated heart rate. This morning with similar complaints ENT such she is in SVT and she was given a total of 212 mg doses of adenosine and converted to sinus rhythm. She was in sinus rhythm through her evaluation this morning, than have slightly elevated BNP but was not clinically volume overloaded and was discharged back to [facility]. Currently she is complaining of palpitations, does feel slightly diaphoretic she is in AFib with rapid ventricular response and slightly hypotensive. Not complaining of chest pain nor significant palpitation. It is not complaining of you sent fever, chills, nausea, vomiting, diarrhea Related Data Home Medications ?Medication ?Instructions ?Recorded ?Confirmed acetaminophen 325 mg capsule 650 mg PO .q6hprn pain 12/04/24 12/04/24 apixaban 5 mg tablet (Eliquis) 2.5 mg PO BID 12/04/24 12/04/24 ascorbic acid (vitamin C) 250 mg 250 mg PO .COMPLEX 12/04/24 12/04/24 tablet atorvastatin 40 mg tablet 40 mg PO DAILY 12/04/24 12/04/24 chlorthalidone 25 mg tablet 12.5 mg PO .COMPLEX 12/04/24 12/04/24 citalopram 20 mg tablet 20 mg PO DAILY 12/04/24 12/04/24 diltiazem HCl 120 mg 120 mg PO DAILY 12/04/24 12/04/24 capsule,extended release 24 hr empagliflozin 25 mg tablet 25 mg PO DAILY 12/04/24 12/04/24 (Jardiance) ferrous sulfate 325 mg (65 mg 325 mg PO DAILY 12/04/24 12/04/24 iron) tablet (FeroSul) gabapentin 100 mg capsule 100 mg PO DAILY 12/04/24 12/04/24 insulin glargine-yfgn 100 unit/mL 18 unit SUBCUT BID 12/04/24 12/04/24 (3 mL) subcutaneous pen levothyroxine 75 mcg tablet 75 mcg PO DAILY 12/04/24 12/04/24 magnesium oxide 400 mg (241.3 mg 400 mg PO BID 12/04/24 12/04/24 magnesium) tablet [id number] 1 tab PO DAILY 12/04/24 12/04/24 fumarate 7.5 mg-folic acid 400 mcg tablet pantoprazole 40 mg tablet,delayed 40 mg PO DAILY 12/04/24 12/04/24 release Previous Rx's ?Medication ?Instructions ?Recorded furosemide 20 mg tablet 20 mg PO DAILY #30 tabs 12/07/24 Allergies Allergy/AdvReac Type Severity Reaction Status Date / Time No Known Drug Allergies Allergy Verified 03/20/25 08:59 Review of Systems Review of Systems Narrative: Pertinent positive and negative findings as per HPI Patient History Medical History (Updated 03/21/25 @ 00:03 by Kayden Vidales MD) Depression Acid reflux Diabetes Hypertension Hyperlipidemia Paroxysmal atrial fibrillation Social History household members: none Smoking Status: Former smoker alcohol intake: current Smoking Status: Former smoker Exam Initial Vital Signs Initial Vital Signs: Vital Signs Temperature 99.0 F 03/20/25 20:36 Pulse Rate 149 H 03/20/25 20:36 Respiratory Rate 14 03/20/25 20:36 Blood Pressure 93/68 03/20/25 20:36 Pulse Oximetry 96 03/20/25 20:36 Oxygen Delivery Method Room Air 03/20/25 20:36 General: Chronically ill-appearing but in no acute distress. Able to give a complete and coherent history. HEENT: Moist mucous membranes, normal sclera with reactive pupils, Neck: No JVD, supple Respiratory: Lungs are clear to auscultation, no wheezing no rales no rhonchi. Full and symmetrical air movement Cardiac: Regular rate and rhythm no murmurs no bruits Abdomen: Soft, nontender, no rebound or guarding, no flank pain Skin: Warm and dry, no rashes Neurologic: Grossly neurologically intact with no obvious asymmetries or abnormalities Extremities: No trauma, well perfused Psych: Cooperative, appropriate insight and affect Procedures Cardioversion Time of Cardioversion: 23:03 Consent Signed: Yes Indication: Atrial fibrillation with rapid ventricular response Stability: Unstable Number of attempts (shocks): 2 Joules used: 200 Cardiac rhythm post-cardioversion: Brief sinus rhythm and then returned to atrial fibrillation with RVR Procedural Sedation Time of procedure: 23:03 Consent signed: Yes Time out performed: Yes Indication: cardioversion ASA Class: III Preparation: monitoring tech applied, pulse oximeter, capnometry used, supplemental O2 applied, suction/airway equipment at bedside and IV secured IV Propofol dose (mg): 40 Intraservice time/total sedation time (min): 8 ED Sedation Level: Moderate (Concious) Patient Tolerated Procedure: Well Additional Comments: Two attempts at cardioversion, both 200 joules and synchronized, were not successful. She remains in atrial fibrillation Time out was done at 11:00 p.m. Course Orders Ordered: ED Orders 03/20/25 20:39 EKG-12 Lead Stat Vital Signs Vital signs: Vital Signs - 8 hr 03/20/25 20:36 03/20/25 20:39 03/20/25 20:40 Temperature 99.0 F Pulse Rate 149 H 149 H Respiratory Rate 14 Blood Pressure 93/68 93/68 Pulse Oximetry 96 94 Oxygen Delivery Method Room Air 03/20/25 20:47 03/20/25 20:47 03/20/25 20:53 Temperature Pulse Rate 136 H 148 H Respiratory Rate 15 Blood Pressure 90/67 Pulse Oximetry 96 97 Oxygen Delivery Method 03/20/25 20:53 03/20/25 21:00 03/20/25 21:00 Temperature Pulse Rate 154 H Respiratory Rate 15 Blood Pressure 110/81 91/55 L Pulse Oximetry 96 Oxygen Delivery Method MDM - Arrhythmia/Palpitations MDM Narrative Medical decision making narrative: CC: Atrial fibrillation with rapid ventricular response Complicating co-morbidities: Paroxysmal AFib, anticoagulated, depression, hyperlipidemia Data collected from: patient Social determinants of health that may influence the patients condition: POLST form indicates DNR with selective treatment, would not want to be intubated. 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 Pertinent findings: CBC is unremarkable Chemistries show creatinine is lower this afternoon than it was this morning currently at 1.48. Liver studies were unremarkable. Troponin is slightly elevated at 0.048. I suspect that this is due to extended. In atrial fibrillation with rapid ventricular response BNP has increased from this morning from [phone]. Independently reviewed EKG: Sinus rhythm at a rate of 130 without obvious ischemia Imaging studies independently reviewed: Chest x-ray shows mild cardiomegaly but no overt congestive heart failure CT angiogram has been ordered and will be followed up by hospitalist service Consultations: Dr. Rodriguez, cardiology. We will load her with IV amiodarone, continue her Eliquis. If she has not cardioverted with the amiodarone by the morning he will consider another episode of cardioversion. Discussed with hospitalist service, patient will be admitted. Treatments: Sedation, cardioversion x2. Each lead to sinus rhythm briefly with rapid deterioration to atrial fibrillation Re-evaluations: Patient's blood pressure is improved, she is not significantly hypoxic she remains in atrial fibrillation at approximately 120 still without pain or other complaints Discussion: 84-year-old woman with increasing episodes of atrial fibrillation. She was in the hospital in December with congestive heart failure, was cardioverted out of her atrial fibrillation in February, this morning had an episode of presumed atrial fibrillation that was treated with adenosine unclear if simply slowing her enough allowed her to spontaneously convert or if she would have converted any way. Recurrent episode visit with slightly increased troponin, increasing BNP, D-dimer is elevated. CT scan of the chest we will be ordered however suspicion for PE is low given the fact that she is anticoagulated. She will be loaded on IV amiodarone and re-evaluated by Cardiology in the morning. Critical Care Time Critical Care Time Critical Care Time: Yes Total Critical Care Time: 36 Attestation: Critical care time is separate from other billable procedures. There is a high probability of a significant, sudden or life-threatening deterioration that requires my full and direct attention, intervention and personal management. This critical care time includes consultation with family and other consulting doctors, review of records, and interpretation of data from labs, EKGs and imaging as well as managements of atrial fibrillation with rapid ventricular response with hypotension, cardioversion and IV amiodarone. Discharge Plan Departure Patient Disposition: Admitted As Inpatient Clinical Impression: Atrial fibrillation with rapid ventricular response, Elevated troponin, Congestive heart failure
--- NOTE | 2025-03-20 21:20 | DI.RAD.S_ITS ---
PROCEDURE: XR CHEST 1V INDICATIONS: a fib with RVR TECHNIQUE: One view of the chest was acquired. COMPARISON: [facility], CR, XR CHEST 1V, 03/20/2025, 9:05. [facility], CR, XR CHEST 1V, 02/26/2025, 8:38. FINDINGS: Surgical changes and devices: None. Lungs and pleura: Right peribronchial infiltrate appears decreased compared to prior. No pleural effusions or pneumothorax. Mediastinum: Mediastinal contours appear normal. Heart size is enlarged. Bones and chest wall: No suspicious bony lesions. Overlying soft tissues appear unremarkable. IMPRESSION: Cardiomegaly. Right peribronchial infiltrate appears decreased compared to prior. Dictated by: Tr Cheek M.D. on 03/20/2025 at 21:37 Approved by: Tr Cheek M.D. on 03/20/2025 at 21:37
[2025-03-20] MEDS: SODIUM CHLORIDE 0.9% 1,000 ML 1000 ML IV (21:22)
[2025-03-20 21:49] LABS: Add Manual Diff / Slide Review NO; Hematocrit 36.1 % (36-46); Hemoglobin 12.2 g/dL (12.0-16.0); Lymphocytes Absolute Auto 900 /uL (1100-4500); Mean Corpuscular HGB Conc 33.9 % (30-36); Mean Corpuscular Hemoglobin 30.5 PG (26-34); Mean Corpuscular Volume 89.9 fL (80-100); Platelet Count 198 X10^3/uL (150-400)
[2025-03-20 21:56] LABS: Alanine Aminotransferase 29 IU/L (<35); Albumin 4.7 g/dL (3.5-5.0); Albumin Globulin Ratio 1.4 (1.0-2.8); Alkaline Phosphatase 59 U/L (38-126); Blood Urea Nitrogen 37 mg/dL (7-17); Calcium 9.8 mg/dL (8.4-10.2); Carbon Dioxide 30 mmol/L (22-32); Chloride 96 mmol/L (98-107); Estimated Glomerular Filt Rate 35 mL/min (>60); Globulin 3.4 g/dL (1.7-4.1); Glucose 204 mg/dL (70-99); HEMOLYSIS 37 (0-50); Magnesium 1.7 mg/dL (1.6-2.3); Potassium 3.6 mmol/L (3.4-5.1); Sodium 136 mmol/L (137-145); Total Protein 8.1 g/dL (6.3-8.2)
[2025-03-20 22:07] LABS: NT-proBNP (BNP-Adult 18+) 6270 pg/mL (<450); Troponin I 0.048 ng/mL (0.01-0.034)
--- NOTE | 2025-03-20 23:18 | RT ---
Assisted with conscious sedation for cardioversion. Patient with RA SPO2 of 92-94%, placed on 2 L NC for procedure. Placed on ETCO2. Increased FIO2 to 3L's at end of procedure due to SPO2 drifting to 91% on 2. ETCO2 remained 35-40 throughout sedation. Slight jaw thrust used to maintain airway till patient awake. Patient awake and talking at end of procedure still on 3 LNC for SPO2 of 95%. RN present at bedside.
[2025-03-20] MEDS: AMIODARONE 150 MG/100 ML PIGGYBACK 600 MG IV (23:56)
--- NOTE | 2025-03-20 23:58 | DI.CT.S_ITS ---
PROCEDURE: CT ANGIO CHEST PE PROTOCOL INDICATIONS: Elevated D-dimer, recurrent atrial fibrillation TECHNIQUE: After the administration of intravenous contrast, 2 mm thick sections acquired from the pulmonary apices to the posterior costophrenic angles. 3-dimensional maximum intensity projection (MIP) coronal and sagittal reformats were then acquired through the thorax. For radiation dose reduction, the following was used: automated exposure control, adjustment of mA and/or kV according to patient size. COMPARISON: [facility], CT, CT TRAUMA CHEST ABDOMEN PELVIS, 12/04/2024, 9:21. FINDINGS: Image quality: Diagnostic. Pulmonary arteries: Dilated main pulmonary artery measuring 3.5 cm. No filling defects. Lower Neck: No enlarged lymph nodes. Thyroid: No thyroid nodules which require sonographic follow up, per consensus guidelines. Axillae: No enlarged lymph nodes. Chest Wall: Unremarkable. Bones: Degenerative changes of the spine. Decreased osseous mineralization. Lungs and Pleura: Small left and trace right pleural effusions. Diffuse interlobular septal thickening and ground-glass consistent with pulmonary edema. Scattered pulmonary nodules measuring 4 mm or less. Heart: Heart size is enlarged with reflux of contrast into the IVC. Severe coronary artery calcifications. No pericardial effusion. Thoracic Vessels: No aortic aneurysm. Mediastinum and Irene: No enlarged lymph nodes. Esophagus: No wall thickening. No hiatal hernia. Upper Abdomen: Left adrenal nodule is redemonstrated. IMPRESSION: No pulmonary embolus. Cardiomegaly with reflux of contrast into the IVC, correlate with elevated right heart pressures. Diffuse pulmonary edema with small left and trace right pleural effusions, consistent with congestive heart failure. Scattered pulmonary nodules measuring 4 mm or less. Per Fleischner criteria, if patient is high risk, optional 1 year follow-up chest CT can be obtained. If patient is low risk, no follow-up is necessary. Dilated main pulmonary artery, suggestive of pulmonary hypertension. Dictated by: Tr Cheek M.D. on 03/21/2025 at 0:40 Approved by: Tr Cheek M.D. on 03/21/2025 at 0:46
--- NOTE | 2025-03-20 23:58 | PM.HP.1 ---
History of Present Illness History of Present Illness Chief complaint: afib Narrative: 84F with PMH of depression, DM2, afib presents for 2nd time today to ER with rapid afib as high as 150. She also had hypotension to 80s. She was unsuccessfully cardioverted twice. BNP was elevated at 6K. D-dimer was elevated to near 3x ULN. She was also given adenosine prior to 2nd ER visit with only brief conversion to SR. No chest pain, palpitations, fever, chills, sweats, nausea, vomiting, dyspnea. [facility] Medical History Depression Acid reflux Diabetes Hypertension Hyperlipidemia Paroxysmal atrial fibrillation Social History household members: none Smoking Status: Former smoker alcohol intake: current Meds Home Medications and Allergies Home Medications ?Medication ?Instructions ?Recorded ?Confirmed ?Type acetaminophen 325 mg capsule 650 mg PO .q6hprn pain 12/04/24 12/04/24 History apixaban 5 mg tablet (Eliquis) 2.5 mg PO BID 12/04/24 12/04/24 History ascorbic acid (vitamin C) 250 mg 250 mg PO .COMPLEX 12/04/24 12/04/24 History tablet atorvastatin 40 mg tablet 40 mg PO DAILY 12/04/24 12/04/24 History chlorthalidone 25 mg tablet 12.5 mg PO .COMPLEX 12/04/24 12/04/24 History citalopram 20 mg tablet 20 mg PO DAILY 12/04/24 12/04/24 History diltiazem HCl 120 mg 120 mg PO DAILY 12/04/24 12/04/24 History capsule,extended release 24 hr empagliflozin 25 mg tablet 25 mg PO DAILY 12/04/24 12/04/24 History (Jardiance) ferrous sulfate 325 mg (65 mg 325 mg PO DAILY 12/04/24 12/04/24 History iron) tablet (FeroSul) gabapentin 100 mg capsule 100 mg PO DAILY 12/04/24 12/04/24 History insulin glargine-yfgn 100 unit/mL 18 unit SUBCUT BID 12/04/24 12/04/24 History (3 mL) subcutaneous pen levothyroxine 75 mcg tablet 75 mcg PO DAILY 12/04/24 12/04/24 History magnesium oxide 400 mg (241.3 mg 400 mg PO BID 12/04/24 12/04/24 History magnesium) tablet ukudyhhpzsgt-ayokjsmy-uaao 1 tab PO DAILY 12/04/24 12/04/24 History fumarate 7.5 mg-folic acid 400 mcg tablet pantoprazole 40 mg tablet,delayed 40 mg PO DAILY 12/04/24 12/04/24 History release furosemide 20 mg tablet 20 mg PO DAILY #30 tabs 12/07/24 Rx Allergies Allergy/AdvReac Type Severity Reaction Status Date / Time No Known Drug Allergies Allergy Verified 03/20/25 08:59 Review of Systems Review of Systems Narrative: As per HPI. Rest of 10-system review negative. Exam Vital Signs (past 8 hours): - 03/20/25 20:36 03/20/25 20:39 03/20/25 20:40 Temperature 99.0 F Pulse Rate 149 H 149 H Respiratory Rate 14 Blood Pressure 93/68 93/68 Pulse Oximetry 96 94 Oxygen Delivery Method Room Air Oxygen Flow Rate 03/20/25 20:47 03/20/25 20:47 03/20/25 20:53 Temperature Pulse Rate 136 H 148 H Respiratory Rate 15 Blood Pressure 90/67 Pulse Oximetry 96 97 Oxygen Delivery Method Oxygen Flow Rate 03/20/25 20:53 03/20/25 21:00 03/20/25 21:00 Temperature Pulse Rate 154 H Respiratory Rate 15 Blood Pressure 110/81 91/55 L Pulse Oximetry 96 Oxygen Delivery Method Oxygen Flow Rate 03/20/25 21:15 03/20/25 21:15 03/20/25 21:16 Temperature Pulse Rate 151 H Respiratory Rate 16 Blood Pressure 77/52 L 77/60 L Pulse Oximetry 93 Oxygen Delivery Method Oxygen Flow Rate 03/20/25 21:16 03/20/25 21:22 03/20/25 21:22 Temperature Pulse Rate 151 H 151 H Respiratory Rate 12 15 Blood Pressure 86/51 L Pulse Oximetry 94 93 Oxygen Delivery Method Oxygen Flow Rate 03/20/25 21:30 03/20/25 21:30 03/20/25 21:45 Temperature Pulse Rate 152 H 154 H Respiratory Rate 19 15 Blood Pressure 87/58 L Pulse Oximetry 92 93 Oxygen Delivery Method Oxygen Flow Rate 03/20/25 21:45 03/20/25 22:00 03/20/25 22:00 Temperature Pulse Rate 147 H Respiratory Rate 18 Blood Pressure 81/60 L 83/64 L Pulse Oximetry 91 Oxygen Delivery Method Oxygen Flow Rate 03/20/25 22:12 03/20/25 22:12 03/20/25 22:13 Temperature Pulse Rate 140 H 141 H Respiratory Rate 15 14 Blood Pressure 88/65 L 88/65 L Pulse Oximetry 95 96 Oxygen Delivery Method Room Air Oxygen Flow Rate 03/20/25 22:15 03/20/25 22:15 03/20/25 22:21 Temperature Pulse Rate 142 H 141 H Respiratory Rate 14 15 Blood Pressure 88/67 L Pulse Oximetry 93 93 Oxygen Delivery Method Oxygen Flow Rate 03/20/25 22:21 03/20/25 22:30 03/20/25 22:37 Temperature Pulse Rate 145 H 141 H Respiratory Rate 16 12 Blood Pressure 138/68 Pulse Oximetry 96 96 Oxygen Delivery Method Oxygen Flow Rate 03/20/25 22:37 03/20/25 22:40 03/20/25 22:40 Temperature Pulse Rate 142 H Respiratory Rate 16 Blood Pressure 94/72 124/99 H Pulse Oximetry 92 Oxygen Delivery Method Oxygen Flow Rate 03/20/25 22:50 03/20/25 22:50 03/20/25 22:54 Temperature Pulse Rate 134 H 134 H Respiratory Rate 12 15 Blood Pressure 134/86 Pulse Oximetry 97 97 Oxygen Delivery Method Oxygen Flow Rate 03/20/25 22:54 03/20/25 22:55 03/20/25 22:55 Temperature Pulse Rate 128 H Respiratory Rate 14 Blood Pressure 125/68 142/70 H Pulse Oximetry 97 Oxygen Delivery Method Oxygen Flow Rate 03/20/25 22:56 03/20/25 22:59 03/20/25 23:00 Temperature Pulse Rate 120 H 135 H Respiratory Rate 15 24 Blood Pressure 103/53 L Pulse Oximetry 96 95 98 Oxygen Delivery Method Nasal Cannula Oxygen Flow Rate 2 3 03/20/25 23:00 03/20/25 23:06 03/20/25 23:06 Temperature Pulse Rate 124 H Respiratory Rate Blood Pressure 111/55 L 120/53 L Pulse Oximetry 92 Oxygen Delivery Method Oxygen Flow Rate 03/20/25 23:10 03/20/25 23:10 Temperature Pulse Rate 129 H Respiratory Rate 17 Blood Pressure 101/62 Pulse Oximetry 94 Oxygen Delivery Method Oxygen Flow Rate Oxygen Delivery Method Nasal Cannula Oxygen Flow Rate 3 Narrative Exam Narrative: Patient was evaluated entirely through 2-way audio/video telemedicine with RN assistance in exam. Physician was not present at beside in person at any time for this evaluation. Consent for telemedicine obtained from patient. Const Other: awake, alert, no acute distress. goes in and out of afib and sinus rhythm. HENMT Other: NC/AT, clear anicteric sclerae Resp Other: CTA-B Cardio Other: irregular, currently normocardic. GI Other: S/NT/+BS Skin Other: no rash Neuro Other: normal speech and responses Extrem Other: mild psychiatric np edema tops of both feet Psych Other: normal mood, appropriate affect Objective Labs 03/20/25 21:00 03/20/25 21:00 Labs: Laboratory Results - last 24 hr 03/20/25 21:00 WBC 7.0 RBC 4.02 Hgb 12.2 Hct 36.1 MCV 89.9 MCH 30.5 MCHC 33.9 RDW 15.1 H Plt Count 198 Neut % (Auto) 76.1 H Lymph % (Auto) 12.9 L [place] % (Auto) 7.2 Eos % (Auto) 3.0 Baso % (Auto) 0.8 Neut # (Auto) 5300 Lymph # (Auto) 900 L [place] # (Auto) 500 Eos # (Auto) 200 Baso # (Auto) 100 D-Dimer 1326 H Sodium 136 L Potassium 3.6 Chloride 96 L Carbon Dioxide 30 BUN 37 H Creatinine 1.48 H Estimated GFR 35 L BUN/Creatinine Ratio 25.0 H Glucose 204 H Calcium 9.8 Magnesium 1.7 Total Bilirubin 0.7 AST 36 ALT 29 Alkaline Phosphatase 59 Troponin I 0.048 H NT-Pro-B Natriuret Pep 6270 H Total Protein 8.1 Albumin 4.7 Globulin 3.4 Albumin/Globulin Ratio 1.4 Assessment & Plan Assessment and plan (1) Congestive heart failure: Qualifiers: Heart failure chronicity: unspecified Heart failure type: unspecified Qualified Code(s): I50.9 - Heart failure, unspecified Status: Acute (2) Elevated troponin: Status: Acute (3) Atrial fibrillation with rapid ventricular response: Status: Acute Assessment & Plan narrative: 84F with significant cardiac history presents with rapid afib, CHF, elevated troponin. 1. Acute uncontrolled chronic afib with RVR without acute hypoxic respiratory failure, POA 2. Acute CHF exacerbation. Last EF 45%, POA 3. Elevated troponin, likely related to #1, 2. No chest pain. POA 4. DM2 with peripheral neuropathy 5. Hyperlipidemia 6. CKD 3b 7. Hypothyroidism 8. GERD Plan: 1. Admit to ICU, telemetry 2. ED attending to order CTA chest to r/o PE 3. Amiodarone drip 4. Lasix 5. Cardiology consulted by ED 6. Diabetic diet, Lantus, SSI 7. Eliquis 8. May need repeat cardioversion Code: DNR Time-Based Coding :: [TOTAL MINUTES] spent with patient and on the chart (including review of chart, obtaining history, exam, reviewing outside data, placing orders, documenting exam and treatment plan, and counseling patient) on [DATE].
[2025-03-21] VITALS (44 sets, daily range): BP systolic 84–164; BP diastolic 50–86; PULSE 1–132; RESP 9–22; TEMP 35.8–36.9; O2SAT 88–100; BMI 25.9
[2025-03-21] MEDS: AMIODARONE 360 MG/200 ML PIGGYBACK 33.33 MG IV (00:12)
[2025-03-21 04:15] LABS: MRSA (Nasal) PCR NOT DETECTED (Not Detect)
[2025-03-21 06:21] LABS: Add Manual Diff / Slide Review NO; Hematocrit 31.4 % (36-46); Hemoglobin 10.7 g/dL (12.0-16.0); Lymphocytes Absolute Auto 800 /uL (1100-4500); Mean Corpuscular HGB Conc 34.0 % (30-36); Mean Corpuscular Hemoglobin 30.8 PG (26-34); Mean Corpuscular Volume 90.5 fL (80-100); Platelet Count 161 X10^3/uL (150-400)
[2025-03-21] MEDS: LEVOTHYROXINE 75 MCG TABLET PO (06:27)
[2025-03-21] MEDS: PANTOPRAZOLE DR 40 MG TABLET PO (06:27)
[2025-03-21] MEDS: AMIODARONE 360 MG/200 ML PIGGYBACK 16.7 MG IV (06:28)
[2025-03-21 06:35] LABS: Blood Urea Nitrogen 33 mg/dL (7-17); Calcium 9.2 mg/dL (8.4-10.2); Carbon Dioxide 26 mmol/L (22-32); Chloride 101 mmol/L (98-107); Estimated Glomerular Filt Rate 38 mL/min (>60); Glucose 178 mg/dL (70-99); HEMOLYSIS < 15 (0-50); Potassium 3.6 mmol/L (3.4-5.1); Sodium 137 mmol/L (137-145)
[2025-03-21] MEDS: APIXABAN 5 MG TABLET 2.5 MG PO ×2 (08:22→20:17)
[2025-03-21] MEDS: INSULIN GLARGINE 100 UNIT/ML 3ML PEN 18 UNIT SUBCUT ×2 (08:24→21:13)
[2025-03-21] MEDS: INSULIN LISPRO 100 UNIT/ML 3ML VIAL SUBCUT ×4 (08:24→21:12)
[2025-03-21] MEDS: SODIUM CHLORIDE 0.9% FLUSH 10 ML IV ×2 (08:26→21:17)
[2025-03-21 08:40] LABS: Troponin I 0.033 ng/mL (0.01-0.034)
[2025-03-21] MEDS: MAGNESIUM CHLORIDE 64 MG TABLET 128 MG PO (10:40)
[2025-03-21] MEDS: POTASSIUM CHLORIDE 20 MEQ TAB 40 MEQ PO (10:40)
--- NOTE | 2025-03-21 10:41 | CM.DANOTE ---
Initial DCP Assessment Note. Review EMR and PT Interview. Met with patient at bedside to discuss discharge needs.PT is alert x 4 sitting up in chair. No acute distress. Patient lives at [facility]. Payor:?[facility] PCP: PHOTOCOMPOSING KEYBOARD OPERATOR's at [facility]. Summary & Plan:?84 y/o female arrived to ED c/o weakness and palpitations. Admitted INPT, Dx, A. Fib with RVR. Plan: Amio gtt, cardiac echo, Cardiology consult. Return to [facility] when improved. Discharge Planning/Care Management CM Discharge Assessment Start: 03/21/25 00:34 Freq: Status: Active Protocol: Document 03/21/25 10:39 (Rec: 03/21/25 10:41 [id number]) Discharge Planning Assessment Assigned Discharge Yesica Vail RN, CM. Grey Inspector Provider PHOTOCOMPOSING KEYBOARD OPERATOR's at [facility]. Insurance [facility] Advance Directives? Yes Advance Directives Yes on File History Provided By Patient,Medical Record Prior Living Assisted Living Arrangements Household Members none Type of Relies on Others transporation used prior to admit Facility Name [facility] Assisted Living Admitted From: Willing to Return to Yes Facility? Independent with ADL Yes 's Is patient alert and Yes oriented? Needs Assistance Meal Prep,Managing Medications,Home Chores / Shopping With Caregiver for No Another DME Already Rented / FWW / Walker Owned Discharge Plan Assisted Living Facility Referrals Initiated None needed Review Status In Process Please Provide Date 03/21/25 Initial DC Assessment Was Performed Next Review Type Continued Stay Review
--- NOTE | 2025-03-21 11:14 | PM.HP.IH.1 ---
History of Present Illness History of Present Illness Date Patient Seen: 03/21/25 Time Patient Seen: 08:15 Chief complaint: afib Narrative: From night hospitalist: 84F with PMH of depression, DM2, afib presents for 2nd time today to ER with rapid afib as high as 150. She also had hypotension to 80s. She was unsuccessfully cardioverted twice. BNP was elevated at 6K. D-dimer was elevated to near 3x ULN. She was also given adenosine prior to 2nd ER visit with only brief conversion to SR. No chest pain, palpitations, fever, chills, sweats, nausea, vomiting, dyspnea. Interval history: The patient converted to sinus rhythm overnight on amiodarone infusion. She lives at [facility] and is followed by a mid-level provider there. She denies chest pain, shortness breath or new symptoms, and states she is feeling better. [facility] Medical History Acid reflux Depression Diabetes Hyperlipidemia Hypertension Paroxysmal atrial fibrillation Social History household members: none Smoking Status: Former smoker alcohol intake: current Meds Home Medications and Allergies Home Medications ?Medication ?Instructions ?Recorded ?Confirmed ?Type acetaminophen 325 mg capsule 650 mg PO .q6hprn pain 12/04/24 03/21/25 History apixaban 5 mg tablet (Eliquis) 2.5 mg PO BID 12/04/24 03/21/25 History ascorbic acid (vitamin C) 250 mg 250 mg PO .COMPLEX 12/04/24 03/21/25 History tablet atorvastatin 40 mg tablet 40 mg PO .HS 12/04/24 03/21/25 History chlorthalidone 25 mg tablet 12.5 mg PO .COMPLEX 12/04/24 03/21/25 History citalopram 20 mg tablet 20 mg PO DAILY 12/04/24 03/21/25 History diltiazem HCl 120 mg 120 mg PO DAILY 12/04/24 12/04/24 History capsule,extended release 24 hr empagliflozin 25 mg tablet 25 mg PO DAILY 12/04/24 12/04/24 History (Jardiance) ferrous sulfate 325 mg (65 mg 325 mg PO DAILY 12/04/24 03/21/25 History iron) tablet (FeroSul) gabapentin 100 mg capsule 300 mg PO .HS 12/04/24 03/21/25 History insulin glargine-yfgn 100 unit/mL 18 unit SUBCUT BID 12/04/24 03/21/25 History (3 mL) subcutaneous pen levothyroxine 75 mcg tablet 75 mcg PO DAILY 12/04/24 03/21/25 History magnesium oxide 400 mg (241.3 mg 400 mg PO BID 12/04/24 03/21/25 History magnesium) tablet h[place]-lslkdtju-evim 1 tab PO DAILY 12/04/24 03/21/25 History fumarate 7.5 mg-folic acid 400 mcg tablet pantoprazole 40 mg tablet,delayed 40 mg PO DAILY 12/04/24 03/21/25 History release furosemide 20 mg tablet 20 mg PO DAILY #30 tabs 12/07/24 Rx cetirizine 10 mg tablet 10 mg PO DAILY 03/21/25 03/21/25 History ezetimibe 10 mg tablet 10 mg PO .HS 03/21/25 03/21/25 History metformin 500 mg tablet 500 mg PO BID 03/21/25 03/21/25 History metoprolol tartrate 25 mg tablet 12.5 mg PO BID 03/21/25 03/21/25 History potassium chloride 20 mEq 20 meq PO DAILY 03/21/25 03/21/25 History tablet,extended release(part/cryst) Allergies Allergy/AdvReac Type Severity Reaction Status Date / Time No Known Drug Allergies Allergy Verified 03/20/25 08:59 Review of Systems Review of Systems ROS: Yes All systems reviewed with the patient and are negative except as otherwise documented Exam Vital Signs (past 8 hours): - 03/21/25 04:00 03/21/25 05:00 03/21/25 06:00 Temperature Pulse Rate 110 H 74 74 Respiratory Rate 13 12 17 Blood Pressure 111/77 118/57 L 120/58 L Pulse Oximetry 97 100 99 Oxygen Flow Rate 2 2 2 03/21/25 08:00 03/21/25 09:00 03/21/25 10:00 Temperature 96.6 F L 96.5 F L Pulse Rate 1 L 83 62 Respiratory Rate 16 15 15 Blood Pressure 125/58 L 133/86 135/62 Pulse Oximetry 93 95 95 Oxygen Flow Rate 0 0 0 Oxygen Delivery Method Room Air Oxygen Flow Rate 0 Narrative Exam Narrative: GENERAL: This is a well-nourished, well-developed patient, in no apparent distress. HEAD: Atraumatic. Normocephalic. No temporal or scalp tenderness. EYES: Pupils equal round and reactive. Extraocular motions intact. No scleral icterus. No injection or drainage. ENT: Mucous membranes pink and moist. NECK: Supple, nontender, no meningeal signs. CARDIOVASCULAR: Regular rate and rhythm without murmurs, gallops, or rubs. RESPIRATORY: Clear to auscultation. GASTROINTESTINAL: Abdomen soft, non-tender, nondistended. EXTREMITIES: No clubbing, cyanosis, or edema. BACK: Nontender without deformity or crepitance. No flank tenderness. NEUROLOGIC: Alert, oriented, speech fluent, full upper and lower motor strength, no focal deficits evident. DERMATOLOGIC: No rashes or skin lesions. Objective Imaging *: My impression: Atrial fibrillation with rapid ventricular response at 103 beats per minute Rightward axis ST & T wave abnormality, consider inferolateral ischemia Radiologist's impression: 1. Chest x-ray 1. 03/20/2025: Peribronchial thickening and patchy opacities as discussed above. Follow-up is needed. If symptoms persist or worsen, CT chest could be performed. 2. Chest x-ray 2. 03/20/2025: Cardiomegaly. Right peribronchial infiltrate appears decreased compared to prior. 3. Chest CT angiogram 03/20/2025: No pulmonary embolus. Cardiomegaly with reflux of contrast into the IVC, correlate with elevated right heart pressures. Diffuse pulmonary edema with small left and trace right pleural effusions, consistent with congestive heart failure. Scattered pulmonary nodules measuring 4 mm or less. Per Fleischner criteria, if patient is high risk, optional 1 year follow-up chest CT can be obtained. If patient is low risk, no follow-up is necessary. Dilated main pulmonary artery, suggestive of pulmonary hypertension 4. Echocardiogram 12/04/2024: 1) Normal left ventricular size and thickness with mildly to moderately reduced systolic function (EF 40-45%). 2) Mildly enlarged right ventricle with low normal function. 3) There is moderate to severe calcifici mitral stenosis (mean inflow gradient 13.8mmHg, HR of 77bpm, MVA 1.6cm2 via PHT). 4) There is mild to moderate mitral regurgitation. 5) There is mild calcific aortic stenosis (valve area 1.5cm2, mean gradient 7mmHg). There is mild aortic regurgitation. 6) There is moderate tricuspid regurgitation. 7) The right ventricular systolic pressure is estimated to be at least 76 mmHg based on an estimated right atrial pressure of 3 mm Hg 8) No prior Echo available for comparison. Labs 03/21/25 06:14 03/21/25 06:14 Labs: Laboratory Results - last 24 hr 03/20/25 03/21/25 03/21/25 21:00 01:00 06:14 WBC 7.0 6.0 RBC 4.02 3.47 L Hgb 12.2 10.7 L Hct 36.1 31.4 L MCV 89.9 90.5 MCH 30.5 30.8 MCHC 33.9 34.0 RDW 15.1 H 15.2 H Plt Count 198 161 Neut % (Auto) 76.1 H 71.0 Lymph % (Auto) 12.9 L 14.1 L [place] % (Auto) 7.2 10.9 Eos % (Auto) 3.0 3.0 Baso % (Auto) 0.8 1.0 Neut # (Auto) 5300 4300 Lymph # (Auto) 900 L 800 L [place] # (Auto) 500 700 Eos # (Auto) 200 200 Baso # (Auto) 100 100 D-Dimer 1326 H Sodium 136 L 137 Potassium 3.6 3.6 Chloride 96 L 101 Carbon Dioxide 30 26 BUN 37 H 33 H Creatinine 1.48 H 1.38 H Estimated GFR 35 L 38 L BUN/Creatinine Ratio 25.0 H 23.9 H Glucose 204 H 178 H Calcium 9.8 9.2 Magnesium 1.7 Total Bilirubin 0.7 AST 36 ALT 29 Alkaline Phosphatase 59 Troponin I 0.048 H NT-Pro-B Natriuret Pep 6270 H Total Protein 8.1 Albumin 4.7 Globulin 3.4 Albumin/Globulin Ratio 1.4 Nasal Screen MRSA (PCR) Not detected 03/21/25 08:11 WBC RBC Hgb Hct MCV MCH MCHC RDW Plt Count Neut % (Auto) Lymph % (Auto) [place] % (Auto) Eos % (Auto) Baso % (Auto) Neut # (Auto) Lymph # (Auto) [place] # (Auto) Eos # (Auto) Baso # (Auto) D-Dimer Sodium Potassium Chloride Carbon Dioxide BUN Creatinine Estimated GFR BUN/Creatinine Ratio Glucose Calcium Magnesium Total Bilirubin AST ALT Alkaline Phosphatase Troponin I 0.033 NT-Pro-B Natriuret Pep Total Protein Albumin Globulin Albumin/Globulin Ratio Nasal Screen MRSA (PCR) Assessment & Plan Assessment & Plan narrative: 84F with significant cardiac history presents with rapid afib, CHF, elevated troponin. 1. Acute uncontrolled chronic afib with RVR without acute hypoxic respiratory failure, POA 2. Acute CHF exacerbation. Last EF 45%, POA 3. Elevated troponin, likely related to #1, 2. No chest pain. POA 4. DM2 with peripheral neuropathy 5. Hyperlipidemia 6. CKD 3b, stable 7. Hypothyroidism with normal TSH 8. GERD 9. Hypokalemia, hypomagnesemia. Replete. Plan: -Monitor on telemetry -Amiodarone drip, transitioned to oral amiodarone 200mg BID tomorrow -Serial cardiac enzymes -Cardiology consulted by ED -Diabetic diet, Lantus, SSI -monitor electrolytes Code: DNR Quality VTE Deep Vein Thrombosis/Pulmonary Embolism Present on Admission: No PROFEE Certified Control Systems Technician Document charge(s): No
--- NOTE | 2025-03-21 12:05 | DI.ECHO.S_ITS ---
[facility] : : [address] : : [place] : : [address] : : Phone: [phone] Echocardiogram Report + + :Name: MARTHA LOWE Study Date: 03/23/2025 Height: 68 in : :[facility] ReadingLocation: Weight: 174 lb : : Gender: Female BSA: 1.9 m2 : :: 1940 Age: 84 yrs BP: 134/67 mmHg: :Reason For Study: MITRAL STENOSIS, ATRIAL FIBRILLATION, : :CONGESTIVE HEART FAILURE : :Ordering Physician: MERCEDES, : :GADEIL Performed By: Koko Amezcua : :Referring: GADIEL LONG : + + Interpretation Summary Normal left ventricle size with ejection fraction 40-45%. There is mild to moderate global hypokinesis of the left ventricle. The right ventricle is severely dilated. The right ventricular systolic function is normal. Moderate biatrial enlargement. There is no hemodynamically significant valvular aortic stenosis. Mild aortic regurgitation. Severe mitral stenosis. The mitral valve mean gradient is 12.2 mmHg. The calculated mitral valve area is 0.78 cm2. Mild to moderate mitral regurgitation. Severe tricuspid regurgitation. The right ventricular systolic pressure is estimated to be at least 142 mmHg based on an estimated right atrial pressure of 15 mm Hg. Comparison is made with the echocardiogram of 12/05/2024, mitral stenosis has progressed, tricuspid regurgitation and pulmonary hypertension have worsen. Procedure: A two-dimensional transthoracic echocardiogram with color flow and Doppler was performed. The study quality was technically good. Comparison is made with the echocardiogram of 12/05/2024. The patient was in normal sinus rhythm during the exam. Left Ventricle: The left ventricle is normal in size. There is normal left ventricular wall thickness. There is no ventricular septal defect visualized. The ejection fraction is estimated to be 40-45%. There is mild to moderate global hypokinesis of the left ventricle. Right Ventricle: The right ventricle is severely dilated. The right ventricular systolic function is normal. Atria: There is moderate biatrial enlargement. There is no Doppler evidence for an interatrial shunt. Mitral Valve: There is moderate to severe mitral annular calcification. The mitral valve leaflets appear moderately thickened. The mitral valve leaflets are mildly calcified. There is severe mitral stenosis. The mitral valve mean gradient is 12.2 mmHg. The calculated mitral valve area is 0.78 cm2. There is mild to moderate mitral regurgitation. Aortic Valve: The aortic valve is trileaflet. The aortic valve is mildly calcified. There is no hemodynamically significant valvular aortic stenosis. There is mild aortic regurgitation. Tricuspid Valve: The tricuspid valve leaflets are thin and pliable. There is severe tricuspid regurgitation. The right ventricular systolic pressure is estimated to be at least 142 mmHg based on an estimated right atrial pressure of 15 mm Hg. Pulmonic Valve: The pulmonic valve is not well visualized. There is trace pulmonic regurgitation. Great Vessels: The aortic root is normal size. The ascending aorta could not be visualized. The pulmonary is not well visualized. The IVC is dilated (diameter is greater than 2.1 cm) and it collapses less than 50% with a sniff. This suggests a high right atrial pressure of 15 mm Hg. Pericardium/ Pleura There is no pericardial effusion. There is no pleural effusion. MMode/2D Measurements & Calculations LVIDd: 3.6 cm LVOT diam: 1.8 cm LVIDs: 3.0 cm Ao root diam: 2.9 cm FS: 17.4 % EPSS: 0.86 cm IVSd: 0.95 cm LVPWd: 0.94 cm LV jarrett. diameter/BSA (cm/m^2): 1.9 LV sys. diameter/BSA (cm/m^2): 1.6 LA A2 area: 18.8 cm2 RA long axis: 5.0 cm LA A4 area: 21.6 cm2 RA area: 17.7 cm2 LA length (vol): 5.9 cm RA vol: 53.2 ml LA vol: 58.9 ml RA : 27.6 ml/m2 LA vol index: 30.6 ml/m2 IVC diam: 2.7 cm RVD1 (basal): 4.5 cm RVD2 (mid): 3.8 cm TAPSE: 1.6 cm Doppler Measurements & Calculations Ao V2 max: 172.0 cm/sec LVOT Max Yoshi: 99.3 cm/sec Ao V2 mean: 131.5 cm/sec LV V1 max P.9 mmHg Ao max P.8 mmHg LV V1 VTI: 20.3 cm Ao mean P.4 mmHg BERYL(I,D): 1.6 cm2 Ao V2 VTI: 32.5 cm BERYL(V,D): 1.5 cm2 sev ratio: 0.62 BERYL indexed to BSA (cm^2/m^2): 0.83 AI P1/2t: 342.3 msec AI dec slope: 342.6 cm/sec2 MV E max yoshi: 189.6 cm/sec TR max yoshi: 566.8 cm/sec MV A max yoshi: 116.7 cm/sec TR max P.5 mmHg MV E/A: 1.6 PA V2 max: 105.7 cm/sec Med Peak E' Yoshi: 4.1 cm/sec PA V2 mean: 75.4 cm/sec E/E' med: 46.5 PA mean P.5 mmHg Lat Peak E' Yoshi: 3.8 cm/sec PA pr(Accel): 51.6 mmHg E/E' lat: 50.5 E/e' average: 48.5 MV dec time: 0.27 sec MVA(VTI): 0.78 cm2 MV V2 mean: 164.9 cm/sec SV(LVOT): 51.9 ml MV mean P.2 mmHg MV V2 VTI: 66.5 cm Electronically signed by: Solange Tay on Reading Physician:03/23/2025 12:20 PM
--- NOTE | 2025-03-21 12:05 | PM.CN ---
History of Present Illness Consult details Chief complaint: afib Meds Home Medications and Allergies Home Medications ?Medication ?Instructions ?Recorded ?Confirmed ?Type acetaminophen 325 mg capsule 650 mg PO .q6hprn pain 12/04/24 03/21/25 History apixaban 5 mg tablet (Eliquis) 2.5 mg PO BID 12/04/24 03/21/25 History ascorbic acid (vitamin C) 250 mg 250 mg PO .COMPLEX 12/04/24 03/21/25 History tablet atorvastatin 40 mg tablet 40 mg PO .HS 12/04/24 03/21/25 History chlorthalidone 25 mg tablet 12.5 mg PO .COMPLEX 12/04/24 03/21/25 History citalopram 20 mg tablet 20 mg PO DAILY 12/04/24 03/21/25 History diltiazem HCl 120 mg 120 mg PO DAILY 12/04/24 12/04/24 History capsule,extended release 24 hr empagliflozin 25 mg tablet 25 mg PO DAILY 12/04/24 12/04/24 History (Jardiance) ferrous sulfate 325 mg (65 mg 325 mg PO DAILY 12/04/24 03/21/25 History iron) tablet (FeroSul) gabapentin 100 mg capsule 300 mg PO .HS 12/04/24 03/21/25 History insulin glargine-yfgn 100 unit/mL 18 unit SUBCUT BID 12/04/24 03/21/25 History (3 mL) subcutaneous pen levothyroxine 75 mcg tablet 75 mcg PO DAILY 12/04/24 03/21/25 History magnesium oxide 400 mg (241.3 mg 400 mg PO BID 12/04/24 03/21/25 History magnesium) tablet xkvotyfujoks-nlwsoymo-xvii 1 tab PO DAILY 12/04/24 03/21/25 History fumarate 7.5 mg-folic acid 400 mcg tablet pantoprazole 40 mg tablet,delayed 40 mg PO DAILY 12/04/24 03/21/25 History release furosemide 20 mg tablet 20 mg PO DAILY #30 tabs 12/07/24 Rx cetirizine 10 mg tablet 10 mg PO DAILY 03/21/25 03/21/25 History ezetimibe 10 mg tablet 10 mg PO .HS 03/21/25 03/21/25 History metformin 500 mg tablet 500 mg PO BID 03/21/25 03/21/25 History metoprolol tartrate 25 mg tablet 12.5 mg PO BID 03/21/25 03/21/25 History potassium chloride 20 mEq 20 meq PO DAILY 03/21/25 03/21/25 History tablet,extended release(part/cryst) Allergies Allergy/AdvReac Type Severity Reaction Status Date / Time No Known Drug Allergies Allergy Verified 03/20/25 08:59 Review of Systems Review of Systems ROS: Yes All systems reviewed with the patient and are negative except as otherwise documented Cardiovascular Cardiovascular: Reports irregular heart rhythm, Reports palpitations and Reports dyspnea on exertion Respiratory Respiratory: Reports dyspnea on exertion Gastrointestinal Gastrointestinal: Reports as per HPI Genitourinary Comments: Recurrent urinary tract infection. Endocrine Endocrine: Reports palpitations Exam Vital Signs (past 8 hours): - 03/21/25 05:00 03/21/25 06:00 03/21/25 08:00 Temperature 96.6 F L Pulse Rate 74 74 1 L Respiratory Rate 12 17 16 Blood Pressure 118/57 L 120/58 L 125/58 L Pulse Oximetry 100 99 93 Oxygen Flow Rate 2 2 0 03/21/25 09:00 03/21/25 10:00 Temperature 96.5 F L Pulse Rate 83 62 Respiratory Rate 15 15 Blood Pressure 133/86 135/62 Pulse Oximetry 95 95 Oxygen Flow Rate 0 0 Oxygen Delivery Method Room Air Oxygen Flow Rate 0 Const General: cooperative, comfortable and well developed Nutritional Appearance: average body habitus Orientation: oriented x3, oriented to person, oriented to place and oriented to time [facility] Head: normal to inspection Other: paritally edentulous Eyes General: appearance normal, both eyes and all related structures EOM: EOM intact bilaterally Direct ophthalmoscopy: normal light reflex Neck Neck: normal visual inspection Chest Chest: normal inspection of the chest Resp Effort & Inspection: normal respiratory effort and able to speak in complete sentences Auscultation: clear to auscultation bilaterally Cardio Palpation: normal PMI Rate: regular rate Rhythm: regular rhythm Heart Sounds: S1 normal, S2 normal and abnormal opening sounds Other: Loud S2 Skin General: no rashes or lesions noted Neuro General: patient oriented x3 Gait: staggering Objective ECG Impression: Atrial fibrillation with RVR Imaging CT scan - chest: My impression: RV dysfunction due to elevated RVSP. Radiologist's impression: No pulmonary embolus. Cardiomegaly with reflux of contrast into the IVC, correlate with elevated right heart pressures. Diffuse pulmonary edema with small left and trace right pleural effusions, consistent with congestive heart failure. Scattered pulmonary nodules measuring 4 mm or less. Per Fleischner criteria, if patient is high risk, optional 1 year follow-up chest CT can be obtained. If patient is low risk, no follow-up is necessary. Dilated main pulmonary artery, suggestive of pulmonary hypertension. Echo: My impression: Severe mitral stenosis and Severe secondary pulmonary hypertension. Radiologist's impression: 1) Normal left ventricular size and thickness with mildly to moderately reduced systolic function (EF 40-45%). 2) Mildly enlarged right ventricle with low normal function. 3) There is moderate to severe calcifici mitral stenosis (mean inflow gradient 13.8mmHg, HR of 77bpm, MVA 1.6cm2 via PHT). 4) There is mild to moderate mitral regurgitation. 5) There is mild calcific aortic stenosis (valve area 1.5cm2, mean gradient 7mmHg). There is mild aortic regurgitation. 6) There is moderate tricuspid regurgitation. 7) The right ventricular systolic pressure is estimated to be at least 76 mmHg based on an estimated right atrial pressure of 3 mm Hg 8) No prior Echo available for comparison. Labs 03/21/25 06:14 03/21/25 06:14 Labs: Laboratory Results - last 24 hr 03/20/25 03/21/25 03/21/25 21:00 01:00 06:14 WBC 7.0 6.0 RBC 4.02 3.47 L Hgb 12.2 10.7 L Hct 36.1 31.4 L MCV 89.9 90.5 MCH 30.5 30.8 MCHC 33.9 34.0 RDW 15.1 H 15.2 H Plt Count 198 161 Neut % (Auto) 76.1 H 71.0 Lymph % (Auto) 12.9 L 14.1 L [place] % (Auto) 7.2 10.9 Eos % (Auto) 3.0 3.0 Baso % (Auto) 0.8 1.0 Neut # (Auto) 5300 4300 Lymph # (Auto) 900 L 800 L [place] # (Auto) 500 700 Eos # (Auto) 200 200 Baso # (Auto) 100 100 D-Dimer 1326 H Sodium 136 L 137 Potassium 3.6 3.6 Chloride 96 L 101 Carbon Dioxide 30 26 BUN 37 H 33 H Creatinine 1.48 H 1.38 H Estimated GFR 35 L 38 L BUN/Creatinine Ratio 25.0 H 23.9 H Glucose 204 H 178 H POC Whole Bld Glucose Calcium 9.8 9.2 Magnesium 1.7 Total Bilirubin 0.7 AST 36 ALT 29 Alkaline Phosphatase 59 Troponin I 0.048 H NT-Pro-B Natriuret Pep 6270 H Total Protein 8.1 Albumin 4.7 Globulin 3.4 Albumin/Globulin Ratio 1.4 Nasal Screen MRSA (PCR) Not detected 03/21/25 03/21/25 03/21/25 08:03 08:11 11:56 WBC RBC Hgb Hct MCV MCH MCHC RDW Plt Count Neut % (Auto) Lymph % (Auto) [place] % (Auto) Eos % (Auto) Baso % (Auto) Neut # (Auto) Lymph # (Auto) [place] # (Auto) Eos # (Auto) Baso # (Auto) D-Dimer Sodium Potassium Chloride Carbon Dioxide BUN Creatinine Estimated GFR BUN/Creatinine Ratio Glucose POC Whole Bld Glucose 193 H 207 H Calcium Magnesium Total Bilirubin AST ALT Alkaline Phosphatase Troponin I 0.033 NT-Pro-B Natriuret Pep Total Protein Albumin Globulin Albumin/Globulin Ratio Nasal Screen MRSA (PCR) [facility] Medical History Depression Acid reflux Diabetes Hypertension Hyperlipidemia Paroxysmal atrial fibrillation Social History marital status: number of children: 1 household members: none lives independently: No caregiver/support person: Yes housing: assisted living facility Tobacco & Substance Use Smoking Status: Former smoker alcohol intake: current Diet and Exercise Type(s) of exercise: independent ambulation and assisted ambulation Assessment & Plan Assessment and plan (1) Atrial fibrillation with rapid ventricular response: Status: Acute (2) Mitral stenosis and incompetence: Qualifiers: Cardiac valve disease etiology: etiology unspecified Qualified Code(s): 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 Direct thrombin inhibitors are indicated for nonvalvular atrial fibrillation. Repeat echocardiogram Input output charting Keep heart rate between 60 and 80 beats per minute to promote diastolic filling through severe mitral stenosis. Diuretic therapy careful titration given RV dysfunction seen on the most recent echocardiogram. Will follow up with you. Telephone conversation with her daughter regarding management of mitral valve diseases. Pt needs a complete heart catheterization. Assessment & Plan narrative: 84-year-old who has a longstanding history of type 2 diabetes paroxysmal atrial fibrillation early cognitive dysfunction currently living in assisted care facility right next to the hospital. She was admitted to the hospital for recurrent episodes of atrial fibrillation. She was attempted cardioversion last night and then spontaneously converted to sinus rhythm. She was started on apixaban and amiodarone. I received a phone call in the middle of the night and came to follow up with her care. 1. Patient has paroxysmal atrial fibrillation most likely secondary to mitral valve disease. She has severe mitral stenosis with mitral regurgitation. She has pulmonary artery systolic pressures of more than 60 mmHg and a mean mitral valve gradient of more than 10. Findings are consistent with severe mitral stenosis. Therefore patient is a candidate for warfarin therapy as guideline for valvular atrial fibrillation. I personally spoke to her daughter Meaghan and found out that she has a history of recurrent atrial fibrillation. She never followed through with the forming fixer. She is currently under the care of a mid-level provider here in the community. 2. Type 2 diabetes on insulin. 3. Severe mitral stenosis most likely degenerative. She has mitral valve gradient of more than 10 mmHg and RV pressure of more than 60 mmHg. She has recurrent atrial fibrillation consistent with symptomatic severe mitral valve disease. Review of echocardiogram is consistent with my clinical impression. Repeat echocardiogram has been ordered. Given severe symptomatic mitral stenosis patient is a candidate for mitral valve replacement all valvotomy depending on her preference. I want cognitive function evaluation with [place] or slums test. 4. History of hypertension patient was hypotensive when she came to the emergency room. 5. Hyperlipidemia. 6. Iron deficiency anemia Time-Based Coding :: [TOTAL MINUTES] spent with patient and on the chart (including review of chart, obtaining history, exam, reviewing outside data, placing orders, documenting exam and treatment plan, and counseling patient) on [DATE].
[2025-03-21] MEDS: CITALOPRAM 10 MG TABLET PO (14:41)
[2025-03-21] MEDS: AMIODARONE 180 MG/100 ML PIGGYBACK 16.7 MG IV (17:18)
[2025-03-22] VITALS (27 sets, daily range): BP systolic 109–162; BP diastolic 51–106; PULSE 67–102; RESP 18–19; TEMP 35.9–36.7; O2SAT 87–99
[2025-03-22 05:56] LABS: Blood Urea Nitrogen 27 mg/dL (7-17); Calcium 9.3 mg/dL (8.4-10.2); Carbon Dioxide 25 mmol/L (22-32); Chloride 103 mmol/L (98-107); Estimated Glomerular Filt Rate 47 mL/min (>60); Glucose 142 mg/dL (70-99); HEMOLYSIS 18 (0-50); Magnesium 1.7 mg/dL (1.6-2.3); Potassium 3.8 mmol/L (3.4-5.1); Sodium 137 mmol/L (137-145); Troponin I 0.015 ng/mL (0.01-0.034)
[2025-03-22] MEDS: LEVOTHYROXINE 75 MCG TABLET PO (06:19)
[2025-03-22] MEDS: PANTOPRAZOLE DR 40 MG TABLET PO (06:26)
[2025-03-22] MEDS: POTASSIUM CHLORIDE 20 MEQ TAB 40 MEQ PO (06:59)
[2025-03-22] MEDS: MAGNESIUM CHLORIDE 64 MG TABLET 128 MG PO (07:00)
[2025-03-22] MEDS: AMIODARONE 200 MG TABLET PO ×2 (08:21→17:24)
[2025-03-22] MEDS: APIXABAN 5 MG TABLET PO ×2 (08:21→21:05)
[2025-03-22] MEDS: CITALOPRAM 10 MG TABLET PO (08:21)
[2025-03-22] MEDS: INSULIN GLARGINE 100 UNIT/ML 3ML PEN 18 UNIT SUBCUT ×2 (08:22→21:07)
[2025-03-22] MEDS: SODIUM CHLORIDE 0.9% FLUSH 10 ML IV ×2 (08:40→21:20)
--- NOTE | 2025-03-22 11:00 | CM.DPC ---
Addendum entered by TAI Marie 03/22/25 12:36: ADD: Since pt has a new med amiodarone to discharge on [facility] cannot accept today as their pharmacy is closed on Sundays and they will have to accept tomorrow Sun. RN kindly spoke to pt and confirmed pt's Dtr is out of town on vacation and no one else that can fill her med and bring to [facility] today. SW to fax d/c summary and med list to [facility] to review for plan of d/c back Sunday. BF Original Note: DCP Discharge Per MD, pt back to baseline and medically stable to d/c back to [facility] today. ANALY called RN number at [facility] and spoke to Evgeny and updated him that pt stable for d/c today and inquired what time they could transport. He will call their Backpackers Manager and confirm if they can accept pt back today. ANALY faxed clinicals to review to [facility]. TAI Marie
[2025-03-22] MEDS: INSULIN LISPRO 100 UNIT/ML 3ML VIAL SUBCUT ×3 (11:54→21:10)
--- NOTE | 2025-03-22 15:28 | PM.PN.IH.1 ---
Subjective Subjective Date Patient Seen: 03/22/25 Time Patient Seen: 09:12 Interval history: Admission note: 84F with PMH of depression, DM2, afib presents for 2nd time today to ER with rapid afib as high as 150. She also had hypotension to 80s. She was unsuccessfully cardioverted twice. BNP was elevated at 6K. D-dimer was elevated to near 3x ULN. She was also given adenosine prior to 2nd ER visit with only brief conversion to SR. No chest pain, palpitations, fever, chills, sweats, nausea, vomiting, dyspnea. The patient converted to sinus rhythm overnight on amiodarone infusion. She lives at [facility] and is followed by a mid-level provider there. She denies chest pain, shortness breath or new symptoms, and states she is feeling better. Interval history: 03/22: The patient was seen by Cardiology yesterday and recommended to have outpatient consultation for mitral valve surgery for atrial fibrillation in the setting of severe mitral stenosis. Furthermore, transitioned to warfarin therapy was recommended as optimal. Patient is feeling much better and has remained in sinus rhythm and is interested in discharge back to her assisted living facility. Exam Vital Signs (past 8 hours): - 03/22/25 07:30 03/22/25 08:00 03/22/25 09:00 Temperature 97.9 F Pulse Rate 81 Respiratory Rate Blood Pressure 159/81 H Pulse Oximetry 88 L Oxygen Delivery Method Room Air 03/22/25 10:16 03/22/25 10:17 03/22/25 10:17 Temperature Pulse Rate Respiratory Rate Blood Pressure 150/67 H Pulse Oximetry 93 94 Oxygen Delivery Method 03/22/25 11:01 03/22/25 11:39 03/22/25 15:19 Temperature 98.1 F Pulse Rate 87 102 H Respiratory Rate 18 Blood Pressure 143/106 H 162/73 H Pulse Oximetry 95 96 Oxygen Delivery Method Oxygen Delivery Method Room Air Oxygen Flow Rate 2 Narrative Exam Narrative: GENERAL: This is a well-nourished, well-developed patient, in no apparent distress. EYES: Pupils equal round and reactive. Extraocular motions intact. No scleral icterus. No injection or drainage. ENT: Mucous membranes pink and moist. NECK: Supple, nontender, no meningeal signs. CARDIOVASCULAR: Regular rate and rhythm with grade 2/6 systolic murmur. RESPIRATORY: Clear to auscultation. GASTROINTESTINAL: Abdomen soft, non-tender, nondistended. EXTREMITIES: No clubbing, cyanosis, or edema. NEUROLOGIC: Alert, oriented, speech fluent, full upper and lower motor strength, no focal deficits evident. DERMATOLOGIC: No rashes or skin lesions. Objective ECG Impression: Atrial fibrillation with RVR Imaging *: My impression: Atrial fibrillation with rapid ventricular response at 103 beats per minute Rightward axis ST & T wave abnormality, consider inferolateral ischemia Radiologist's impression: 1. Chest x-ray 1. 03/20/2025: Peribronchial thickening and patchy opacities as discussed above. Follow-up is needed. If symptoms persist or worsen, CT chest could be performed. 2. Chest x-ray 2. 03/20/2025: Cardiomegaly. Right peribronchial infiltrate appears decreased compared to prior. 3. Chest CT angiogram 03/20/2025: No pulmonary embolus. Cardiomegaly with reflux of contrast into the IVC, correlate with elevated right heart pressures. Diffuse pulmonary edema with small left and trace right pleural effusions, consistent with congestive heart failure. Scattered pulmonary nodules measuring 4 mm or less. Per Fleischner criteria, if patient is high risk, optional 1 year follow-up chest CT can be obtained. If patient is low risk, no follow-up is necessary. Dilated main pulmonary artery, suggestive of pulmonary hypertension 4. Echocardiogram 12/04/2024: 1) Normal left ventricular size and thickness with mildly to moderately reduced systolic function (EF 40-45%). 2) Mildly enlarged right ventricle with low normal function. 3) There is moderate to severe calcifici mitral stenosis (mean inflow gradient 13.8mmHg, HR of 77bpm, MVA 1.6cm2 via PHT). 4) There is mild to moderate mitral regurgitation. 5) There is mild calcific aortic stenosis (valve area 1.5cm2, mean gradient 7mmHg). There is mild aortic regurgitation. 6) There is moderate tricuspid regurgitation. 7) The right ventricular systolic pressure is estimated to be at least 76 mmHg based on an estimated right atrial pressure of 3 mm Hg 8) No prior Echo available for comparison. Labs 03/21/25 06:14 03/22/25 04:29 Labs: Laboratory Results - last 24 hr 03/21/25 03/21/25 03/22/25 16:41 20:45 04:29 Sodium 137 Potassium 3.8 Chloride 103 Carbon Dioxide 25 BUN 27 H Creatinine 1.16 H Estimated GFR 47 L BUN/Creatinine Ratio 23.3 H Glucose 142 H POC Whole Bld Glucose 182 H 213 H Calcium 9.3 Magnesium 1.7 Troponin I 0.015 03/22/25 03/22/25 07:59 11:41 Sodium Potassium Chloride Carbon Dioxide BUN Creatinine Estimated GFR BUN/Creatinine Ratio Glucose POC Whole Bld Glucose 154 H 207 H Calcium Magnesium Troponin I [facility] Medical History Acid reflux Depression Diabetes Hyperlipidemia Hypertension Paroxysmal atrial fibrillation Social History marital status: number of children: 1 household members: none lives independently: No caregiver/support person: Yes housing: assisted living facility Smoking Status: Former smoker alcohol intake: current Type(s) of exercise: independent ambulation and assisted ambulation Assessment & Plan Assessment & Plan narrative: 84F with significant cardiac history presents with rapid afib, CHF, elevated troponin. 1. Acute uncontrolled chronic afib with RVR without acute hypoxic respiratory failure, POA, converted to sinus rhythm on amiodarone infusion. Etiology valvular atrial fibrillation due to severe mitral stenosis. 2. Acute CHF exacerbation. Last EF 45%, POA, improved with diuresis 3. Elevated troponin, likely related to #1, 2. No chest pain. POA, ruled out for myocardial infarction 4. Severe mitral stenosis. Palpation Cardiology consultation for consideration of surgery. 5. Chronic anticoagulation. She has been treated with apixaban. Warfarin would be optimal therapy. Recommend transition to warfarin when back in her outpatient setting where safe and judicious monitoring may be best carried out. 6. DM2 with peripheral neuropathy 7. Hyperlipidemia 8. CKD 3b, stable 9. Hypothyroidism with normal TSH 10. GERD 11. Hypokalemia, hypomagnesemia. Repleted. Plan: -clinically stable and ready for discharge, delayed due to facilities inability to accept her on Sunday -telemetry -continue amiodarone 200mg BID -plan outpatient cardiology followup with Dr. Gunderson per patient preference Code: DNR Quality VTE Deep Vein Thrombosis/Pulmonary Embolism Present on Admission: No [facility] PROFEE Imaging Account Manager Document charge(s): No Charge Codes Subsequent inpatient/observation care: [id number]
[2025-03-23 03:12] VITALS: BP 140/74; PULSE 99; RESP 19; TEMP 35.7; O2SAT 100
[2025-03-23 06:13] LABS: Blood Urea Nitrogen 22 mg/dL (7-17); Calcium 9.1 mg/dL (8.4-10.2); Carbon Dioxide 22 mmol/L (22-32); Chloride 105 mmol/L (98-107); Estimated Glomerular Filt Rate 45 mL/min (>60); Glucose 209 mg/dL (70-99); HEMOLYSIS 23 (0-50); Magnesium 1.7 mg/dL (1.6-2.3); Potassium 4.2 mmol/L (3.4-5.1); Sodium 136 mmol/L (137-145)
[2025-03-23] MEDS: PANTOPRAZOLE DR 40 MG TABLET PO (06:23)
[2025-03-23] MEDS: LEVOTHYROXINE 75 MCG TABLET PO (06:23)
[2025-03-23 07:00] VITALS: BP 134/67; PULSE 84; RESP 18; TEMP 36; O2SAT 95
[2025-03-23] MEDS: APIXABAN 5 MG TABLET PO (08:00)
[2025-03-23] MEDS: INSULIN LISPRO 100 UNIT/ML 3ML VIAL SUBCUT (08:00)
[2025-03-23] MEDS: AMIODARONE 200 MG TABLET PO (08:00)
[2025-03-23] MEDS: CITALOPRAM 10 MG TABLET PO (08:00)
[2025-03-23] MEDS: INSULIN GLARGINE 100 UNIT/ML 3ML PEN 18 UNIT SUBCUT (08:01)
[2025-03-23] MEDS: SODIUM CHLORIDE 0.9% FLUSH 10 ML IV (08:01)
--- NOTE | 2025-03-23 09:51 | P.DS_ITS ---
History of Present Illness History of Present Illness Date Patient Seen: 03/23/25 Chief complaint: afib Narrative: Chief complaint: Atrial fibrillation rapid ventricular response with palpitations History of present illness: 03/21: 84F with PMH of depression, DM2, afib presents for 2nd time today to ER with rapid afib as high as 150. She also had hypotension to 80s. She was unsuccessfully cardioverted twice. BNP was elevated at 6K. D-dimer was elevated to near 3x ULN. She was also given adenosine prior to 2nd ER visit with only brief conversion to SR. No chest pain, palpitations, fever, chills, sweats, nausea, vomiting, dyspnea. The patient converted to sinus rhythm overnight on amiodarone infusion. She lives at [facility] and is followed by a mid-level provider there. She denies chest pain, shortness breath or new symptoms, and states she is feeling better. Hospital course: 03/22: The patient was seen by Cardiology yesterday and recommended to have outpatient consultation for mitral valve surgery for atrial fibrillation in the setting of severe mitral stenosis. Furthermore, transitioned to warfarin therapy was recommended as optimal. Patient is feeling much better and has remained in sinus rhythm and is interested in discharge back to her assisted living facility. Review of systems: No chest pain shortness for breath palpitations Physical exam: No acute distress Lungs clear Heart rate and rhythm regular Alert and oriented Independently mobile Objective findings: 1. Chest x-ray 1. 03/20/2025: Peribronchial thickening and patchy opacities as discussed above. Follow-up is needed. If symptoms persist or worsen, CT chest could be performed. 2. Chest x-ray 2. 03/20/2025: Cardiomegaly. Right peribronchial infiltrate appears decreased compared to prior. 3. Chest CT angiogram 03/20/2025: No pulmonary embolus. Cardiomegaly with reflux of contrast into the IVC, correlate with elevated right heart pressures. Diffuse pulmonary edema with small left and trace right pleural effusions, consistent with congestive heart failure. Scattered pulmonary nodules measuring 4 mm or less. Per Fleischner criteria, if patient is high risk, optional 1 year follow-up chest CT can be obtained. If patient is low risk, no follow-up is necessary. Dilated main pulmonary artery, suggestive of pulmonary hypertension 4. Echocardiogram 12/04/2024: 1) Normal left ventricular size and thickness with mildly to moderately reduced systolic function (EF 40-45%). 2) Mildly enlarged right ventricle with low normal function. 3) There is moderate to severe calcifici mitral stenosis (mean inflow gradient 13.8mmHg, HR of 77bpm, MVA 1.6cm2 via PHT). 4) There is mild to moderate mitral regurgitation. 5) There is mild calcific aortic stenosis (valve area 1.5cm2, mean gradient 7mmHg). There is mild aortic regurgitation. 6) There is moderate tricuspid regurgitation. 7) The right ventricular systolic pressure is estimated to be at least 76 mmHg based on an estimated right atrial pressure of 3 mm Hg 8) No prior Echo available for comparison. Assessment and plan: 84F with significant cardiac history presents with rapid afib, CHF, elevated troponin. 1. Acute uncontrolled chronic afib with RVR without acute hypoxic respiratory failure, POA, converted to sinus rhythm on amiodarone infusion. Etiology valvular atrial fibrillation due to severe mitral stenosis. 2. Acute CHF exacerbation. Last EF 45%, POA, improved with diuresis 3. Elevated troponin, likely related to #1, 2. No chest pain. POA, ruled out for myocardial infarction 4. Severe mitral stenosis. Palpation Cardiology consultation for consideration of surgery. 5. Chronic anticoagulation. She has been treated with apixaban. Warfarin would be optimal therapy. Recommend transition to warfarin when back in her outpatient setting where safe and judicious monitoring may be best carried out. 6. DM2 with peripheral neuropathy 7. Hyperlipidemia 8. CKD 3b, stable 9. Hypothyroidism with normal TSH 10. GERD 11. Hypokalemia, hypomagnesemia. Repleted. Plan: -clinically stable and ready for discharge, delayed due to facilities inability to accept her on Sunday -telemetry -continue amiodarone 200mg BID -plan outpatient cardiology followup with Dr. Gunderson per patient preference Code: DNR 35 minutes were involved in evaluation of this patient including [id number] evaluation physical examination of the patient review of records discussion with discharge planning team and treatment team Discharge Providers Provider Date of admission: 03/21/25 00:03 Discharge Date: 03/23/25 Primary care physician: Jose Stuart MD Consults: 03/20/25 23:34 Consult to Cardiology Stat Comment: Consulting Provider: Enoch Gunderson Reason for consultation: a fib Has provider been notified: Yes Discharge provider: Tha Meza MD Exam Vital Signs (past 8 hours): - 03/23/25 03:12 03/23/25 07:00 Temperature 96.2 F L 96.8 F L Pulse Rate 99 H 84 Respiratory Rate 19 18 Blood Pressure 140/74 134/67 Pulse Oximetry 100 95 Oxygen Flow Rate 2 0 Oxygen Delivery Method Room Air Oxygen Flow Rate 0 Objective Labs 03/21/25 06:14 03/23/25 04:33 Labs: Laboratory Results - last 24 hr 03/22/25 03/22/25 03/22/25 11:41 16:46 20:50 Sodium Potassium Chloride Carbon Dioxide BUN Creatinine Estimated GFR BUN/Creatinine Ratio Glucose POC Whole Bld Glucose 207 H 196 H 248 H Calcium Magnesium 03/23/25 03/23/25 04:33 07:48 Sodium 136 L Potassium 4.2 Chloride 105 Carbon Dioxide 22 BUN 22 H Creatinine 1.19 H Estimated GFR 45 L BUN/Creatinine Ratio 18.5 Glucose 209 H POC Whole Bld Glucose 182 H Calcium 9.1 Magnesium 1.7 PFSH Medical History Acid reflux Depression Diabetes Hyperlipidemia Hypertension Paroxysmal atrial fibrillation Social History marital status: number of children: 1 household members: none lives independently: No caregiver/support person: Yes housing: assisted living facility Smoking Status: Former smoker alcohol intake: current Type(s) of exercise: independent ambulation and assisted ambulation Discharge Plan Discharge Plan Patient Disposition: Assisted Living Transfer to: [facility] Living Discharge orders & Medications Discharge Orders: Discharge (Order); Ordered 03/23/25 Ordered By: Tha Meza Prescriptions: New amiodarone 200 mg Tablet 200 mg PO BIDWM Qty: 60 0RF Continued levothyroxine 75 mcg tablet 75 mcg PO DAILY magnesium oxide 400 mg (241.3 mg magnesium) tablet 400 mg PO BID pantoprazole 40 mg tablet,delayed release (DR/EC) 40 mg PO DAILY ferrous sulfate [FeroSul] 325 mg (65 mg iron) tablet 325 mg PO DAILY Patient Comments: [NO ORIGINAL SIG] Rx Instructions: One time a day every 2 days. gabapentin 100 mg capsule 300 mg PO .HS brndrotp-gkz-mocu fum-folic ac 7.5 mg iron-400 mcg tablet 1 tab PO DAILY chlorthalidone 25 mg tablet 12.5 mg PO .COMPLEX Rx Instructions: 12.5 mg orally every other day hold for <110/60; Jardiance 25 mg tablet 25 mg PO DAILY atorvastatin 40 mg tablet 40 mg PO .HS Patient Comments: HS Eliquis 5 mg tablet 2.5 mg PO BID ascorbic acid (vitamin C) 250 mg tablet 250 mg PO .COMPLEX Rx Instructions: 250 mg orally once a day every every 2 days; insulin glargine-yfgn 100 unit/mL (3 mL) insulin pen 18 unit SUBCUT BID Patient Comments: [NO ORIGINAL SIG] acetaminophen 325 mg capsule 650 mg PO .[id number] furosemide 20 mg Tablet 20 mg PO DAILY Qty: 30 0RF ezetimibe 10 mg tablet 10 mg PO .HS metoprolol tartrate 25 mg tablet 12.5 mg PO BID metformin 500 mg tablet 500 mg PO BID cetirizine 10 mg tablet 10 mg PO DAILY potassium chloride 20 mEq tablet,ER particles/crystals 20 meq PO DAILY Discontinued citalopram 20 mg tablet 20 mg PO DAILY diltiazem HCl 120 mg capsule,extended release 24hr 120 mg PO DAILY Follow up/Referrals: Jose Stuart MD [Primary Care Provider, Internal Medicine] Visit Report/Discharge Packet Stand Alone Forms: Patient Portal/API, Stroke Signs & Symptoms Discharge Data Primary Care Provider: Jose Stuart Quality VTE Deep Vein Thrombosis/Pulmonary Embolism Present on Admission: No
--- NOTE | 2025-03-23 11:06 | CM.DPNOTE ---
DCP note INTERIOR DESIGN INSTRUCTOR reviewed EMR per chart, medically cleared to dc back to [facility] today. INTERIOR DESIGN INSTRUCTOR faxed med list and dc summary. per Mily, can accept back today. transport over at 11:30am to pick her up. INTERIOR DESIGN INSTRUCTOR updated nursing staff/discharge rn. INTERIOR DESIGN INSTRUCTOR updated pt and provider in room. pt eager and agreeable. INTERIOR DESIGN INSTRUCTOR placed med list in chart. P: dc today back to [facility] at 1130. CM team will continue to follow as needed in case any additional needs should arise TAI Mohamud
[2025-03-23] MEDS: MAGNESIUM CHLORIDE 64 MG TABLET 128 MG PO (11:25)
--- NOTE | 2025-03-23 11:36 | PC.NURSE ---
Leftover insulin in drawer sent to pharmacy. Removed PIVs and tele, pt tolerated well. All belongings with patient, no belongings in safe pharm or contact lens curve grinder drawer. Provided pt education on medications and follow up. Pt stated all questions answered. Pt picked up and escorted via WC to facility vehicle by [facility] staff member.
== END 2025-03-23 11:38 | DRG 291 ==
LOC: ED 23:58 → AC 03-21 00:04 → ICU 03-21 00:21 → AC 03-22 17:08
PROVIDERS: Internal Medicine; Admitting Provider Internal Medicine; Emergency Provider Emergency Medicine; PCP Internal Medicine; Referring Provider Emergency Medicine; Visit Provider Internal Medicine
DX: I13.0 Hypertensive heart and chronic kidney disease with heart failure and stage 1 through stage 4 chronic kidney disease, or unspecified chronic kidney disease (principal); I50.23 Acute on chronic systolic (congestive) heart failure; I48.20 Chronic atrial fibrillation, unspecified; R79.89 Other specified abnormal findings of blood chemistry; E11.42 Type 2 diabetes mellitus with diabetic polyneuropathy; E11.22 Type 2 diabetes mellitus with diabetic chronic kidney disease; N18.32 Chronic kidney disease, stage 3b; E03.9 Hypothyroidism, unspecified; K21.9 Gastro-esophageal reflux disease without esophagitis; E87.6 Hypokalemia; E83.42 Hypomagnesemia; I05.2 Rheumatic mitral stenosis with insufficiency; I27.20 Pulmonary hypertension, unspecified; E78.5 Hyperlipidemia, unspecified; D50.9 Iron deficiency anemia, unspecified; Z79.4 Long term (current) use of insulin; Z87.891 Personal history of nicotine dependence; Z66 Do not resuscitate; Z79.01 Long term (current) use of anticoagulants; Z79.84 Long term (current) use of oral hypoglycemic drugs; I49.9 Cardiac arrhythmia, unspecified; R07.9 Chest pain, unspecified
CPT/HCPCS: 36415; 71045; 71275; 80048; 80053; 82962; 83690; 83735; 83880; 84484; 85025; 85379; 87637; 87797; 92960; 93005; 93010; 93306; 96361; 96365; 96374; 99284; 99285; 99291; 99292; J0282; J1815; J1938; J2704; J7030; Q9967

== ENCOUNTER → 2025-04-01 06:31 | Outpatient (ROUT) | payer SELFPAY ==
[2025-04-01 07:55] LABS: INR 1.2 (0.9-1.3); Prothrombin Time 14.0 SECONDS (9.4-12.5)
== END ==
PROVIDERS: Visit Provider Registered Nurse
DX: E03.9 Hypothyroidism, unspecified (principal)
CPT/HCPCS: 36415; 85610

== ENCOUNTER → 2025-04-15 06:22 | Outpatient (ROUT) | payer OTHER, MEDICAID, SELFPAY ==
[2025-03-21 01:20] VITALS: BMI 25.9
[2025-04-15 08:58] LABS: Prothrombin Time 62.4 SECONDS (9.4-12.5)
[2025-04-15 09:29] LABS: INR 5.8 (0.9-1.3)
== END ==
PROVIDERS: PCP Internal Medicine; Visit Provider Registered Nurse
DX: E03.9 Hypothyroidism, unspecified (principal)
CPT/HCPCS: 36415; 85610

== ENCOUNTER → 2025-04-22 10:05 | Outpatient (CLI) | payer OTHER, MEDICAID, SELFPAY ==
[2025-03-21 01:20] VITALS: BMI 25.9
[2025-04-22 10:41] LABS: INR 1.5 (0.9-1.3); Prothrombin Time 16.9 SECONDS (9.4-12.5)
== END ==
PROVIDERS: PCP Registered Nurse; Referring Provider Registered Nurse; Visit Provider Registered Nurse
DX: Z79.01 Long term (current) use of anticoagulants (principal)
CPT/HCPCS: 36415; 85610

== ENCOUNTER → 2025-04-29 06:18 | Outpatient (ROUT) | payer OTHER, MEDICAID, SELFPAY ==
[2025-03-21 01:20] VITALS: BMI 25.9
[2025-04-29 08:35] LABS: INR 1.3 (0.9-1.3); Prothrombin Time 14.6 SECONDS (9.4-12.5)
== END ==
PROVIDERS: PCP Registered Nurse; Visit Provider Nurse Practitioner Family
DX: E03.9 Hypothyroidism, unspecified (principal)
CPT/HCPCS: 36415; 85610

== ENCOUNTER → 2025-05-06 06:24 | Outpatient (ROUT) | payer OTHER, MEDICAID, SELFPAY ==
[2025-03-21 01:20] VITALS: BMI 25.9
[2025-05-06 08:19] LABS: INR 2.4 (0.9-1.3); Prothrombin Time 27.0 SECONDS (9.4-12.5)
== END ==
PROVIDERS: PCP Registered Nurse; Visit Provider Registered Nurse
DX: E03.9 Hypothyroidism, unspecified (principal)
CPT/HCPCS: 36415; 85610

== ENCOUNTER → 2025-05-20 06:26 | Outpatient (ROUT) | payer OTHER, MEDICAID, SELFPAY ==
[2025-03-21 01:20] VITALS: BMI 25.9
[2025-05-20 09:42] LABS: INR 1.6 (0.9-1.3); Prothrombin Time 17.6 SECONDS (9.4-12.5)
== END ==
LOC: LAB 06:27
PROVIDERS: PCP Registered Nurse; Visit Provider Registered Nurse
DX: I48.91 Unspecified atrial fibrillation (principal)
CPT/HCPCS: 36415; 85610